=== PATIENT | male | born 1940 | race Caucasian/White ===

== ENCOUNTER 2022-05-12 08:52 | Outpatient (CLI) | payer MEDICARE, SELFPAY ==
[2022-05-12 10:03] VITALS: BMI 28.5
--- NOTE | 2022-05-12 10:06 | ECG_ITS ---
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 Interpretive Statements NAME OF STUDY: EXERCISE SESTAMIBI STRESS TEST INDICATION: [Shortness of Breath, ] EXERCISE DATA: The patient was exercised by Tye protocol. Baseline heart rate was 62 beats per minute. Baseline blood pressure was 143/95 millimeters of mercury. Target heart rate was 118 beats per minute. Maximum heart rate achieved was 136, which was 115% of the target heart rate. Maximum blood pressure was 220/104 millimeters of mercury. Total exercise time was 6 minutes 37 seconds. Maximum METs achieved was 10.2. The reason for ending the test was completion of the protocol. The patient complained of shortness of breath during the stress test, which then resolved at the end of the test. ELECTROCARDIOGRAM: BASELINE: Showed sinus rhythm, right bundle branch block, no significant ST-T changes at the baseline noted. [] EXERCISE: At the peak exercise level, [] No significant ST-T changes suggestive of ischemia noted. [] RECOVERY: During the recovery period, heart rate dropped appropriately. No significant ST-T changes in the recovery suggestive of ischemia noted. [] CONCLUSION: 1. Exercise capacity good. 2. Heart rate response was appropriate. 3. Blood pressure response was hypertensive 4. Symptoms not suggestive of ischemia. 5. Electrocardiogram portion of the stress test was not suggestive of ischemia. 6. Nuclear scan will be documented separately. Electronically Signed On 05-30-2022 21:33:46 CDT by Amilcar Ring M.D. [id number]
--- NOTE | 2022-05-12 10:06 | NMCV_ITS ---
NM raudel perf SPECT r/s* [id number] Ashish Armijo Age: 81 Gender: M : 1940 Exam Date: 05/12/2022 10:06 Ordering Phys: Angelika Johnson Technologist: JOEY Sr Exam Location: [facility] Indications: SOB STRESS TEST Please see separate stress test report in Ephiphany for full findings IMAGE PROTOCOL Rest/Stress 1 Exercise Day Radiopharmaceutical Dose (mCi) Administration Site Administered by Rest: Tc-99m 10.8 IV JOEY Sr Sestamibi Stress:Tc-99m 32.9 IV JOEY Sr Sestamibi Rest: 12-May-2022 60 Discovery 630 Stress: 12-May-2022 15 Discovery 630 Radiopharmaceutical was injected at 87 % maximum heart rate. Images obtained in supine and prone position. SPECT RESULTS Technical Quality: Good Raw Data Analysis: Normal Image Corrections: No attenuation or motion correction applied Summed Stress Score: 2 Summed Rest Score: 6 Summed Difference Score: 1 PERFUSION FINDINGS There is small in size, mostly fixed perfusion defect in inferior wall. 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 FUNCTIONAL RESULTS (calculated via Gated SPECT) Stress Image LV EF (%): 41 Stress EDV (mL):134 TID: 1.03 Stress ESV (mL):79 FUNCTIONAL FINDINGS: LV systolic is mildly reduced with EF of 41%. Mild global hypokinesis is seen. IMPRESSIONS 1. Abnormal myocardial perfusion imaging with small sized prior infarct seen in the RCA territory with minimal bret-infarct ischemia. 2. LV systolic function is mildly reduced with EF of 41%. Amilcar Ring MD (Electronically Signed) Final Date: 12 May 2022 22:10 S
[2022-05-12 12:15] VITALS: BP 148/103; PULSE 85
== END 2022-05-12 08:53 | disposition home or self-care (01) ==
PROVIDERS: PCP Physician Assistant; Visit Provider Physician Assistant
DX: R06.02 Shortness of breath (principal)
CPT/HCPCS: 78452; 93017; A9500

== ENCOUNTER → 2022-07-13 12:00 | Outpatient (BNVA) | payer MEDICARE, SELFPAY | PROVIDERS: PCP Physician Assistant; Visit Provider Internal Medicine Cardiovascular Disease | DX: I25.10 Atherosclerotic heart disease of native coronary artery without angina pectoris (principal); I25.2 Old myocardial infarction; Z95.820 Peripheral vascular angioplasty status with implants and grafts; E78.5 Hyperlipidemia, unspecified; J44.9 Chronic obstructive pulmonary disease, unspecified; I10 Essential (primary) hypertension; R07.9 Chest pain, unspecified; Z87.891 Personal history of nicotine dependence | CPT/HCPCS: 99213; 99214 ==

== ENCOUNTER 2022-07-26 07:24 | Outpatient (CLI) | payer MEDICARE, SELFPAY ==
[2022-07-26] VITALS (107 sets, daily range): BP systolic 121–186; BP diastolic 63–101; PULSE 50–89; RESP 8–28; TEMP 36.6–37.1; O2SAT 88–98; BMI 30.1
--- NOTE | 2022-07-26 07:30 | XACV_ITS ---
Exam Room: [facility] Ht: 183 cm Wt: 101 kg BSA: 2.29 m2 Gender: Male : 1940 Any Known Allergies: Penicillins Exam Priority: Routine Procedure(s): Procedure Description: Diagnostic procedure Procedure Description: Left Heart Catheterization Procedure Description: Left ventriculography Procedure Description: Miscellaneous Procedure Description: ACT Procedure Description: Coronary Angiography Diagnostic Cath Status: Elective Diagnostic Findings * Left circumflex artery has mild to moderate diffuse disease.. * Right Coronary Artery has patent prior mid vessel stent. No severe stenosis. RPL has distal significant 60 to 70% disease.. * Mid Left Anterior Descending: Proximal to mid vessel has a long stent. In the mid LAD there is critical 99% in-stent restenosis., STEVEN: 1 flow. Mid to distal vessel has moderate 50 to 60% stenosis.. * Left Main has no disease. * Coronary angiography shows right dominance. PCI Status: Elective PCI Indication: Other Interventional Findings * Procedure detail:. Left main artery with XB 3.5 guide catheter. 0.014 run-through guidewire was used to cross the mid LAD in-stent restenosis. IV heparin was administered to maintain ACT above 250 s. We dilated the stent with a 3.5 x 12 mm noncompliant balloon. At this time final angiogram showed excellent stent expansion, minimal residual stenosis and STEVEN-3 flow. Guidewire and guide catheter were removed. Patient left the Painter Decorator in stable condition.. * Mid Left Anterior Descendin% stenosis treated with a MDT CECY EUPHORA RX [id number] BALLOON. 0% residual stenosis, STEVEN: 3 flow. Conclusions 1. Critical 99% in-stent restenosis of mid LAD stent status post successful revascularization with balloon angioplasty.. 2. Mild left ventricular systolic dysfunction. Ejection fraction of 45%. 3. Mid Left Anterior Descending was treated with a Balloon. Recommendations * Aspirin Plavix for at least 1 year. * High intensity statin therapy. * Outpatient cardiology follow-up in 4. Interventional RX Recommendation: PCI w/o planned CABG Diagnostic RX Recommendation: PCI w/o planned CABG Anticoagulation: Heparin Ventriculography Ejection Fraction: 45.0 % Pressures Phase:Rest AO : 106 / 73 ( 89 ) @ 9:14:00 AM 90 / 60 ( 73 ) @ 9:31:00 AM 144 / 92 ( 113 ) @ 9:40:00 AM 132 / 82 ( 104 ) @ 9:40:00 AM LV : 136 / 21 / 31 @ 9:38:00 AM 131 / 8 / 22 @ 9:39:00 AM 152 / 29 / 41 @ 9:40:00 AM 120 / -3 / 13 @ 9:40:00 AM Valves Phase:DefaultPhase AV : 0.0 @ 8:28:22 AM Clinical Evaluation EBL: 5mL-10mL Procedural Details Procedure Consent Obtained. Admit Source: Out Patient. Pre-Procedure Time Out. Identified patient by full name and date of as verbalized by the patient/guarantor. Does the consent match the physician's order: Yes. Accurate & Complete Informed Consent: Yes. Inpatient/Outpatient History & Physical on Chart: Yes. If H&P is completed, is and addenduem needed: No; If yes, is the addendum complete: N/A. Visualize and Verify Site with Patient/Guarantor: N/A. Relevant Radiology Images available: N/A. The risks, benefits, and alternatives of sedation and/or procedure were discussed by physician. The patient agrees to continue. Procedure started. [facility] Clinical Fraility Score: 3: Managing Well. Painter Decorator Indications: Suspected CAD. Chest Pain Symptom Assessment: Typical Angina Symptoms. Cardiovascular Instability: No,. Correct patient, site and procedure confirmed by cath team. Current diagnosis: positive stress test. PERRLA. 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 Lungs clear x 5 lobes. IV Site on Arrival: 20 gauge in the right anticubital. IV Fluids: 0.9% NaCl at KVO. 0 mL infused prior to cath lab technologist. Pre Procedural Pulses: bilateral dorsalis pedis was 3+. Pre Procedural Pulses: bilateral posterior tibial was 3+. Pre Procedural Pulses: bilateral radial was 3+. Oxygen started at 2liters/min via nasal canula. right groin was prepped with chloroprep then draped in the usual sterile fashion. right radial was prepped with chloroprep then draped in the usual sterile fashion. Physician notified. Baseline sample Acquired. HR: 67 BPM. Physician arrived. Physician scrubbed in. Immediate Pre-Procedure Time Out. Correct Patient: Yes; Correct Procedure: Yes; Correct Site: Yes; Correct Patient Position: Yes; Correct Supplies: Yes; Dried Flammable Prep: Yes; Blood Products Available: N/A;. Lidocaine 1% infiltrated to the right radial. A 5 yi TIG catheter in over wire. Multiple views taken of left coronary artery. Catheter redirected to the RCA. Multiple views taken of right coronary artery. Catheter out. 6 yi XB 3.5 guide catheter was inserted over the wire. Runthrough guidewire was advanced through the guide catheter to lesion in the mid LAD. Inflation number : 1 A MDT NC EUPHORA RX [id number] BALLOON was prepped and advanced across the Mid LAD , then inflated to 12 GARY for 0:20 seconds. Inflation number: 2 The MDT NC EUPHORA RX 3.87M69YR BALLOON was reinflated across the Mid LAD, to 12 GARY for 0:11 seconds. Inflation number: 3 The MDT NC EUPHORA RX [id number] BALLOON was reinflated across the Mid LAD, to 16 GARY for 0:27 seconds. ACT drawn. Results 354 seconds. Therapeutic limits - pre-heparin administration 90-150 seconds and monitoring heparin during a vascular procedure >250 seconds. Balloon out. Results checked. interventional Wire out. Results checked. Guide catheter out. A 5 yi Angled Pig catheter in over wire. EDP Sample taken: LV 136/21,31; HR: 69 BPM; SpO2: 89%. EDP Sample taken: LV 131/8,22; HR: 67 BPM; SpO2: 90%. LV gram performed in BERNARD @ 10 mL/second for a total of 30 mL. EDP Sample taken: LV 152/29,41; HR: 70 BPM; SpO2: 90%. Pullback taken: LV 120/-3,13; AO 144/92(113); Mean: , Peak to Peak: 0mmHg, SEP: ; HR: 68 BPM; SpO2: 89%. catheter and wire out. ACT drawn. Results 211 seconds. Therapeutic limits - pre-heparin administration 90-150 seconds and monitoring heparin during a vascular procedure >250 seconds. TR band placed. Hemostasis obtained. Post Procedure: Pulses reassessed and unchanged. PERRLA. 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 No VTE prophylaxis required. A TR Band was successful obtaining hemostatsis at the Right Radial artery insertion site. Medication's Wasted: Heparin = 4000 units. Medication's Wasted: Nitro = 49.8 mg. Total IV fluids: 100 mL. Post-op diagnosis: critical 99% occlusion of Mid LAD, instant opening with baloon. Complications: none. Estimated blood loss: 5mL-10mL. Responsiveness - Normal response to verbal stimuli; alert and oriented, PERRLA. Airway - Unaffected, no intervention required; spontaneous ventilation. Circulation: W/N/L, pulses unchanged. Nausea/Vomiting: No. Procedure completed. Patient transferred by bed to CPRU. Vital chart was stopped. Access Site Site: Right Radial artery Sheath Size: 6 Fr Hemostasis Method: TR Band Hemostasis Success: Successful Procedure Medications Start: 9:10 AM Stop: 9:10 AM Medication: Versed Amount: 1 mg Route: I.V. Start: 9:11 AM Stop: 9:11 AM Medication: Fentanyl Amount: 50 mcg Route: I.V. Start: 9:12 AM Stop: 9:12 AM Medication: Nitrogylcerin Amount: 200 mcg Route: I.A. Start: 9:13 AM Stop: 9:13 AM Medication: Heparin Amount: 5000 units Route: I.V. Start: 9:21 AM Stop: 9:21 AM Medication: Heparin Amount: 5000 units Route: I.V. Start: 9:29 AM Stop: 9:29 AM Medication: Nitrogylcerin Amount: 200 mcg Route: I.C. Start: 9:31 AM Stop: 9:31 AM Medication: Heparin Amount: 2000 units Route: I.V. Start: 9:31 AM Stop: 9:31 AM Medication: Versed Amount: 1 mg Route: I.V. Start: 9:31 AM Stop: 9:31 AM Medication: Fentanyl Amount: 50 mcg Route: I.V. Start: 9:32 AM Stop: 9:32 AM Medication: Aspirin Amount: 325 mg Route: P.O. Start: 9:32 AM Stop: 9:32 AM Medication: Plavix Amount: 600 mg Route: P.O. I, the attending physician, have reviewed and verified all procedure medications. Yes, all medications given per verbal order History/Risk Factors Hypertension: Yes Dyslipidemia: Yes Peripheral Arterial Disease (PAD): No Myocardial Infarction (MS): Yes Obesity: No Prior Interventions PCI: Yes CABG: No Valve Surgery: No Date of PCI: 01/17/2012 Report Signatures Finalized by Amilcar Ring MD on 08/09/2022 04:58 PM
[2022-07-26] MEDS: diphenhydrAMINE 50 mg Capsule PO (07:51)
[2022-07-26 08:23] LABS: Basophils # 0.1 10^3/uL (0.0-0.1); Basophils % 0.8 %; Eosinophils # 0.2 10^3/uL (0.0-0.8); Eosinophils % 3.1 %; Hematocrit 49.3 % (42.0-52.0); Hemoglobin 16.5 g/dL (11.7-16.6); Lymphocytes # 2.5 10^3/uL (0.8-4.8); Lymphocytes % 41.2 %; Mean Corpuscular HGB Conc 33.5 g/dL (30.0-36.0); Mean Corpuscular Hemoglobin 28.7 pg (28.0-34.0); Mean Corpuscular Volume 85.9 fl (80-94); Mean Platelet Volume 9.1 fL (7.4-10.4); Monocytes # 0.6 10^3/uL (0.2-0.9); Monocytes % 9.6 %; Neutrophils # 2.72 10^3/uL (1.8-7.7); Neutrophils % 44.8 %; Nucleated Red Blood Cells % 0 %; Platelet Count 255 10^3/cmm (130-400); Red Blood Count 5.74 10^6/uL (4.1-5.3); Red Cell Distribution Width 12.9 % (12.1-15.1); White Blood Count 6.1 10^3/uL (4.0-10.0)
[2022-07-26 08:41] LABS: Anion Gap 14.4 (5-19); Blood Urea Nitrogen 16 mg/dL (8-23); Calcium 9.6 mg/dL (8.5-10.5); Carbon Dioxide 27 mmol/L (22-29); Chloride 103 mmol/L (98-107); Glucose 97 mg/dL (65-115); Osmolality Calculated 291 mOsm/kg (285-295); Potassium 4.4 mmol/L (3.5-5.1); Sodium 140 mmol/L (136-145)
--- NOTE | 2022-07-26 09:07 | W.PM.OPSUD ---
Surgery/Procedure H&P Update DATE OF PROCEDURE: July 26, 2022 DATE H&P PERFORMED: 07/13/22 H&P UPDATE INFORMATION: I have reviewed H&P completed within last 30 days, I have examined patient prior to procedure and No changes to prior documentation PREOP DIAGNOSIS: Worsening angina PRIMARY INDICATION FOR PROCEDURE: Worsening angina PLANNED PROCEDURE: Operation Date: 07/26/22 08:30 Proposed Procedures p [facility] w/w/o 07256 I21.9,Z95.820,I10(Left) - Amilcar Ring M.D Possible percutaneous coronary intervention PATIENT REASSESSED PRIOR TO SEDATION, WITH NO CHANGE NOTED: Yes PHYSICAL EXAM: alert, oriented x 3, clear to auscultation bilaterally and regular rate & rhythm AIRWAY EVAL/ANESTHESIA PLAN: ASA III, Local Anesthesia, Risks, benefits & alternatives of sedation and/or procedure discussed and Patient agrees to continue as planned ADDITIONAL INFORMATION: Moderate sedation
--- NOTE | 2022-07-26 10:14 | SUR.PHASEI ---
Received the patient back from the dental laboratory technician apprentice via wheelchair S/P POBA of the Prox LAD at 0950. Patient ambulated to the bed. Alert and oriented x 3. potline monitor placed and vital signs obtained. TR band to the right wrist intact with no bleeding or hematoma noted. Palpable radial pulse. No other assessment changes noted from pre cath assessment. Spouse and son at bedside. No concerns voiced at this time.
--- NOTE | 2022-07-26 10:36 | SUR.PHASEI ---
patient taken to 111-1 via WC.
--- NOTE | 2022-07-26 14:07 | PC.NURSE ---
TR band removed at 1406. No hematoma noted. Patient's vitals are stable. No complaints at this time. No bleeding noted.
[2022-07-27] VITALS (100 sets, daily range): BP systolic 139–143; BP diastolic 82–88; PULSE 47–93; RESP 8–27; TEMP 36.6–37.1; O2SAT 82–97
[2022-07-27 04:36] LABS: Basophils # 0.1 10^3/uL (0.0-0.1); Basophils % 0.8 %; Eosinophils # 0.2 10^3/uL (0.0-0.8); Hematocrit 49.4 % (42.0-52.0); Hemoglobin 16.4 g/dL (11.7-16.6); Lymphocytes # 1.9 10^3/uL (0.8-4.8); Lymphocytes % 32.2 %; Mean Corpuscular HGB Conc 33.2 g/dL (30.0-36.0); Mean Corpuscular Hemoglobin 28.8 pg (28.0-34.0); Mean Corpuscular Volume 86.8 fl (80-94); Mean Platelet Volume 8.8 fL (7.4-10.4); Monocytes # 0.7 10^3/uL (0.2-0.9); Monocytes % 11.1 %; Neutrophils % 52.4 %; Nucleated Red Blood Cells % 0 %; Platelet Count 207 10^3/cmm (130-400); Red Blood Count 5.69 10^6/uL (4.1-5.3); Red Cell Distribution Width 12.9 % (12.1-15.1); White Blood Count 5.9 10^3/uL (4.0-10.0)
[2022-07-27 05:11] LABS: Anion Gap 11.7 (5-19); Blood Urea Nitrogen 18 mg/dL (8-23); Calcium 9.5 mg/dL (8.5-10.5); Carbon Dioxide 30 mmol/L (22-29); Chloride 101 mmol/L (98-107); Glucose 94 mg/dL (65-115); Osmolality Calculated 288 mOsm/kg (285-295); Potassium 4.7 mmol/L (3.5-5.1); Sodium 138 mmol/L (136-145)
[2022-07-27] MEDS: aspirin 81 mg EC Tablet PO (08:20)
[2022-07-27] MEDS: clopidogrel 75 mg Tablet PO (08:21)
--- NOTE | 2022-07-27 09:25 | PM.DCS ---
Discharge Providers Date of Admission: 07/26/2022 Date of Discharge: July 27, 2022 Attending Provider at Discharge: Amilcar Ring M.D Primary Care Provider: Angelika Johnson Reason for Visit Reason for Visit: Worsening angina Brief History: 81-year-old man with past medical history of CAD who was recently seen in the office by Dr. Keen for worsening chest pain symptoms. Patient had recent stress test did not show significant area of ischemia however had been having worsening chest pain symptoms for which coronary angiogram was arranged. Hospital Course Hospital Course Coronary angiogram demonstrated severe in-stent restenosis of proximal to mid LAD stent. He underwent successful revascularization with balloon angioplasty. Patient was observed overnight and went home in a stable condition. Physical Exam Narrative: GENERAL: Patient is alert, awake and oriented x3. [] NECK: No jugular vein distension. [] HEENT: No cyanosis. No icterus. No pallor. [] HEART: Regular S1 and S2. No murmur, rub or gallop. [] LUNGS: Clear to auscultate bilaterally. [] ABDOMEN: Soft, nontender and nondistended. Positive bowel sounds. No guarding, rebound or tenderness. [] CENTRAL NERVOUS SYSTEM: Grossly nonfocal. [] EXTREMITIES: Lower extremities with no edema bilaterally. Pulses palpable in the lower extremities, both dorsalis pedis and posterior tibial. 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 Routine Exams 07/26/22 07:30 Ordered Laboratory Results WBC 5.9 10^3/uL (4.0-10.0) 07/27/22 04:22 RBC 5.69 10^6/uL (4.1-5.3) H 07/27/22 04:22 Hgb 16.4 g/dL (11.7-16.6) 07/27/22 04:22 Hct 49.4 % (42.0-52.0) 07/27/22 04:22 MCV 86.8 fl (80-94) 07/27/22 04:22 MCH 28.8 pg (28.0-34.0) 07/27/22 04:22 MCHC 33.2 g/dL (30.0-36.0) 07/27/22 04:22 RDW 12.9 % (12.1-15.1) 07/27/22 04:22 Plt Count 207 10^3/cmm (130-400) 07/27/22 04:22 MPV 8.8 fL (7.4-10.4) 07/27/22 04: Neut % (Auto) 52.4 % 07/27/22 04:22 Lymph % (Auto) 32.2 % 07/27/22 04:22 Edmonson % (Auto) 11.1 % 07/27/22 04: Eos % (Auto) 3.0 % 07/27/22 04:22 Baso % (Auto) 0.8 % 07/27/22 04:22 Neut # (Auto) 3.10 10^3/uL (1.8-7.7) 07/27/22 04: Lymph # (Auto) 1.9 10^3/uL (0.8-4.8) 07/27/22 04:22 Edmonson # (Auto) 0.7 10^3/uL (0.2-0.9) 07/27/22 04:22 Eos # (Auto) 0.2 10^3/uL (0.0-0.8) 07/27/22 04:22 Baso # (Auto) 0.1 10^3/uL (0.0-0.1) 07/27/22 04:22 Nucleated RBC % (auto) 0 % 07/27/22 04:22 Nucleated RBCs # 0.0 /100WBC 07/27/22 04:22 Sodium 138 mmol/L (136-145) 07/27/22 04:22 Potassium 4.7 mmol/L (3.5-5.1) 07/27/22 04:22 Chloride 101 mmol/L (98-107) 07/27/22 04:22 Carbon Dioxide 30 mmol/L (22-29) H 07/27/22 04:22 Anion Gap 11.7 (5-19) 07/27/22 04:22 BUN 18 mg/dL (8-23) 07/27/22 04:22 Creatinine 1.0 mg/dL (0.7-1.2) 07/27/22 04:22 GFR Calculation Not Reportable 07/27/22 04:22 Glucose 94 mg/dL (65-115) 07/27/22 04:22 Calculated Osmolality 288 mOsm/kg (285-295) 07/27/22 04:22 Calcium 9.5 mg/dL (8.5-10.5) 07/27/22 04:22 Vitals Last Vital Signs Temp 97.8 F 07/27/22 08:00 Pulse 63 07/27/22 08:15 Resp 18 07/27/22 08:15 BP 140/84 07/27/22 08:15 Pulse Ox 91 07/27/22 07:50 O2 Del Method 07/26/22 21:08 Discharge Plan Discharge Patient Disposition: Home Prescriptions: New aspirin 81 mg tablet,chewable 81 mg PO DAILY Qty: 90 1RF clopidogrel 75 mg tablet 75 mg PO DAILY Qty: 90 1RF Continued pantoprazole 40 mg tablet,delayed release (DR/EC) 40 mg PO QDAY saw palmetto 450 mg capsule 450 mg PO DAILY enalapril maleate 10 mg tablet 10 mg PO DAILY glucosamine-chondroitin 900 mg tablet 900 mg PO DAILY sonovive 1 tab PO DAILY tamsulosin 0.4 mg capsule 0.4 mg PO DAILY PRN (Reason: Urinary Retention) cyanocobalamin (vitamin B-12) 5,000 mcg capsule 5,000 mcg PO DAILY cetirizine [Zyrtec] 10 mg tablet 10 mg PO DAILY PRN (Reason: Allergy Symptoms) nitroglycerin [Nitrostat] 0.4 mg tablet, sublingual 0.4 mg SUBLINGUAL Q5M PRN (Reason: chest pain) Qty: 25 6RF No Action pravastatin 80 mg tablet 80 mg PO BEDTIME Fish Oil 300-1,000 mg Capsule 1 cap PO DAILY Niacivamide 500 mg PO BID Discharge Orders: Discharge Order (Routine); Ordered 07/27/22 Ordered By: Amilcar Ring Referrals: Prerna Shoemaker FNP [Nurse Practitioner] - 08/04/22 1:30 pm (Please follow-up with Prerna Shoemaker on Tuesday, Aug 04 at 1:30P.M. If you have any questions or need reschedule. Please call ) Diet: Cardiac Activity: Increase activity as tolerated Patient Instructions: Aspirin (By mouth), Clopidogrel (By mouth) (Plavix), Coronary Angioplasty (DC), Chest Pain Stoplight, Post Angiogram Home Care Instructions Discharge Date/Time: 07/27/22 10:12 Discharge Attestations Time Spent in Discharge Care*: less than 30 min Quality Metrics Clinical Quality Measures [ No reported AMI, CVA or VTE this stay] Coding Level of Care Code Acute Chg FW DC note
--- NOTE | 2022-07-27 10:10 | PC.NURSE ---
Patient discharged at 1000 am with discharge instructions to not use right hand/wrist to push or pull anything over 5lb for the next 5 days. Education and follow up appointments given. Patient verbalized understanding. Ambulated with to main entrance.
== END 2022-07-27 10:12 | disposition home or self-care (01) ==
LOC: CCL 07:36 → CSU 09:47
PROVIDERS: PCP Physician Assistant; Visit Provider Internal Medicine
DX: I25.110 Atherosclerotic heart disease of native coronary artery with unstable angina pectoris (principal); I10 Essential (primary) hypertension; E78.5 Hyperlipidemia, unspecified; I25.2 Old myocardial infarction
CPT/HCPCS: 36415; 80048; 85025; 85347; 92920; 93458; 96360; 96365; 99152; 99153; C1725; C1769; C1887; C1894; J1644; J2250; J3010; J3490; J7030; Q0163; Q9967

== ENCOUNTER → 2022-08-04 13:19 | Outpatient (BNVA) | payer MEDICARE, SELFPAY | PROVIDERS: PCP Physician Assistant; Visit Provider Nurse Practitioner Family | DX: I25.10 Atherosclerotic heart disease of native coronary artery without angina pectoris (principal); I25.2 Old myocardial infarction; I10 Essential (primary) hypertension; Z95.5 Presence of coronary angioplasty implant and graft; Z87.891 Personal history of nicotine dependence | CPT/HCPCS: 36415; 80053; 85025; 99214 ==

== ENCOUNTER 2022-08-08 21:32 | Observation (INO) | payer OTHER, MEDICARE, SELFPAY ==
[2022-08-08 21:39] VITALS: BP 158/94; PULSE 68; RESP 19; TEMP 36.7; O2SAT 94; BMI 29.8
[2022-08-08 21:45] VITALS: RESP 16
--- NOTE | 2022-08-08 22:08 | XRR_ITS ---
PROCEDURE INFORMATION: Exam: XR Chest Exam date and time: 08/08/2022 10:46 PM Age: 81 years old Clinical indication: Dyspnea TECHNIQUE: Imaging protocol: Radiologic exam of the chest. Views: 1 view. COMPARISON: CR XR chest 2V* [id number] 04/05/2022 8:49 AM FINDINGS: Lungs: Calcified pulmonary nodule/nodules, consistent with prior granulomatous disease. Pleural spaces: Unremarkable. No pleural effusion. No pneumothorax. Heart/Mediastinum: There is mild cardiomegaly. Bones/joints: Unremarkable. XR/XR chest 1V portable [id number] IMPRESSION: Mild cardiomegaly.
--- NOTE | 2022-08-08 22:35 | CTR_ITS ---
PROCEDURE INFORMATION: Exam: CTA Chest With Contrast Exam date and time: 08/08/2022 10:51 PM Age: 81 years old Clinical indication: Abdominal pain; Chest pressure; Additional info: Right chest and flank pain, SOB TECHNIQUE: Imaging protocol: Computed tomographic angiography of the chest with contrast. 3D rendering (Not supervised by radiologist): MIP and/or 3D reconstructed images were created by the technologist. Radiation optimization: All CT scans at this facility use at least one of these dose optimization techniques: automated exposure control; mA and/or kV adjustment per patient size (includes targeted exams where dose is matched to clinical indication); or iterative reconstruction. Contrast material: OMNIPAQUE 350; Contrast volume: 80 ml; Contrast route: INTRAVENOUS (IV); COMPARISON: CR (CHEST, ) 08/08/2022 10:46 PM RADIATION DOSE METRICS: Total DLP (mGy-cm): 1339.43 FINDINGS: Pulmonary arteries: No pulmonary embolism. Aorta: Unremarkable. No aortic aneurysm. No aortic dissection. Other arteries: There is mild atherosclerotic disease. Lungs: Calcified pulmonary nodule/nodules, consistent with prior granulomatous disease. 7 mm left lower lobe perifissural nodule image 242. Pleural spaces: Unremarkable. No pneumothorax. No pleural effusion. Heart: Unremarkable. No cardiomegaly. No pericardial effusion. Lymph nodes: Calcified lymph nodes are present, secondary to prior granulomatous disease. Bones/joints: Unremarkable. No acute fracture. Soft tissues: Unremarkable. (Reference: Valdez) REFERENCES: Valdez Cali et al. Guidelines for Management of Incidental Pulmonary Nodules Detected on CT Images: From the Fleischner Society 2017. Radiology. 2017;284(1):228-243. PROCEDURE INFORMATION: Exam: CT Abdomen And Pelvis With Contrast Exam date and time: 08/08/2022 10:51 PM Age: 81 years old Clinical indication: Abdominal pain; Chest pressure; Additional info: Right chest and flank pain, SOB TECHNIQUE: Imaging protocol: Computed tomography of the abdomen and pelvis with contrast. Radiation optimization: All CT scans at this facility use at least one of these dose optimization techniques: automated exposure control; mA and/or kV adjustment per patient size (includes targeted exams where dose is matched to clinical indication); or iterative reconstruction. Contrast material: OMNIPAQUE 350; Contrast volume: 80 ml; Contrast route: INTRAVENOUS (IV); COMPARISON: CR (CHEST, ) 08/08/2022 10:46 PM RADIATION DOSE METRICS: Total DLP (mGy-cm): 1339.43 FINDINGS: Lungs: The lung bases are clear. No effusion Liver: There is fatty infiltration of the liver. Gallbladder and bile ducts: No wall thickening, pericholecystic fluid or stones. Pancreas: Normal. No ductal dilation. Spleen: Normal. No splenomegaly. Adrenal glands: Normal. No mass. Kidneys and ureters: 1.1 cm right renal cyst. Stomach and bowel: Unremarkable. No obstruction. No mucosal thickening. Appendix: No evidence of appendicitis. Intraperitoneal space: Unremarkable. No free air. No significant fluid collection. Vasculature: Unremarkable. No abdominal aortic aneurysm. Lymph nodes: Unremarkable. No enlarged lymph nodes. Urinary bladder: Unremarkable as visualized. Reproductive: Unremarkable as visualized. Bones/joints: Unremarkable. No acute fracture. Soft tissues: Prior left inguinal hernia repair. CT/CT angio chest w abd pel w con IMPRESSION: 1. No pulmonary embolism. 2. No cause for acute pain is identified. 3. 7 mm left lower lobe perifissural nodule image 242. For patients at low risk (minimal or absent history of smoking and of other known risk factors), recommend CT Chest at 6-12 months, then consider CT Chest at 18-24 months. For patients at high risk (history of smoking or of other known risk factors), recommend CT Chest at 6-12 months, then CT Chest at 18-24 months. IMPRESSION: 1. Fatty infiltration of the liver. 2. No cause for acute pain is identified. COMMENTS: Consistent with the [place] [employer]'s Incidental Findings Committee white paper (J Am Eric Radiol 2018): Any incidental renal lesion less than 1 cm or classified as too small to characterize, or any incidental cystic renal lesion characterized as simple-appearing, is likely benign. No follow-up imaging is recommended for these lesions per consensus recommendations based on imaging criteria.
[2022-08-08 22:38] LABS: Basophils # 0.1 10^3/uL (0.0-0.1); Basophils % 0.9 %; Eosinophils # 0.3 10^3/uL (0.0-0.8); Eosinophils % 3.5 %; Hematocrit 49.3 % (42.0-52.0); Hemoglobin 16.5 g/dL (11.7-16.6); Lymphocytes # 2.8 10^3/uL (0.8-4.8); Lymphocytes % 36.2 %; Mean Corpuscular HGB Conc 33.5 g/dL (30.0-36.0); Mean Corpuscular Hemoglobin 28.9 pg (28.0-34.0); Mean Corpuscular Volume 86.3 fl (80-94); Mean Platelet Volume 8.8 fL (7.4-10.4); Monocytes # 0.9 10^3/uL (0.2-0.9); Monocytes % 11.7 %; Neutrophils % 47.3 %; Nucleated Red Blood Cells % 0 %; Platelet Count 239 10^3/cmm (130-400); Red Blood Count 5.71 10^6/uL (4.1-5.3); Red Cell Distribution Width 12.7 % (12.1-15.1); White Blood Count 7.6 10^3/uL (4.0-10.0)
[2022-08-08] MEDS: iohexol 350 mg/mL 500 mL Btl (per mL) IV (22:54)
[2022-08-08 22:59] LABS: Troponin(5th) Baseline 6 ng/L (0-15)
[2022-08-08 23:09] LABS: Alanine Aminotransferase 25 U/L (0-41); Albumin Level 4.3 g/dL (3.5-5.2); Alkaline Phosphatase 72 U/L (40-130); Anion Gap 14.5 (5-19); Aspartate Amino Transferase 15 U/L (0-40); Blood Urea Nitrogen 14 mg/dL (8-23); Calcium 9.7 mg/dL (8.5-10.5); Carbon Dioxide 27 mmol/L (22-29); Chloride 100 mmol/L (98-107); Globulin 2.7 g/dL (1.3-4.6); Glucose 107 mg/dL (65-115); NT Pro B Type Natriuretic Pept 300 pg/mL (0-450); Osmolality Calculated 285 mOsm/kg (285-295); Potassium 4.5 mmol/L (3.5-5.1); Sodium 137 mmol/L (136-145); Total Bilirubin 0.5 mg/dL (0.15-1.2)
[2022-08-09] VITALS (11 sets, daily range): BP systolic 119–169; BP diastolic 67–88; PULSE 56–70; RESP 14–20; TEMP 36.4–36.7; O2SAT 92–97
--- NOTE | 2022-08-09 00:11 | ECG_ITS ---
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 Measurements Intervals [place] Rate: 53 P: 52 MT: 216 QRS: 79 QRSD: 178 T: 75 QT: 433 QTc: 408 Interpretive Statements SINUS BRADYCARDIA WITH FIRST DEGREE AV BLOCK POSSIBLE LEFT ATRIAL ENLARGEMENT [-0.1mV P-WAVE IN V1/V2] RIGHT BUNDLE BRANCH BLOCK [120+ ms QRS DURATION, UPRIGHT V1, 40+ ms S IN I/aVL/V4/V5/V6] No previous ECG available for comparison Electronically Signed On 08-09-2022 19:05:55 PLATING INSPECTOR by Amilcar Ring M.D. [email or web address] holmes countyIndium Software Inc.[facility].[employer]/store/OM/[id number]
[2022-08-09 01:02] LABS: Troponin 5 2HR 19.35 ng/L (0-15)
[2022-08-09 01:10] LABS: Troponin 5 2HR Delta 13.35 ABS# (0-10)
[2022-08-09] MEDS: morphine 4 mg/mL SDV 1 mL IVP (01:47)
[2022-08-09] MEDS: ondansetron 2 mg/ML SDV 2 mL 4 MG IVP (01:47)
--- NOTE | 2022-08-09 03:19 | P.HP_ITS ---
Providers/Chief Complaint Admitting Physician: Ace Han MD Primary Care Provider: Angelika Johnson Chief Complaint: sob, right shoulder pain, post heart surgery History of Present Illness Ashish Armijo is a 81 year old male who recently had balloon angioplasty of LAD presented today with chief complaint of right-sided chest discomfort. Patient is stated that roughly 2 weeks ago he was lifting stones when he started experiencing shortness of breath and chest pain angiogram revealed 99% stenosis of LAD he has been compliant with his medications, he does not smoke or drink alcohol, since Tuesday he has been experiencing shortness of breath and right- sided chest discomfort which he is describing as sharp stabbing pain lower part of his chest which is radiating towards his right shoulder. He has not noticed any left-sided pain, orthopnea, PND, nausea or vomiting. He does get short of breath with his symptoms. That prompted his visit to the ER. In the ER he was about to be discharged however because of delta troponin decision was made to observe him overnight because of recent balloon angioplasty of LAD. Heart rate is in bradycardic range patient is hemodynamically stable, chest pain improved with use of morphine I also given 1 dose of ketorolac. Review of Systems Const: Denies: fever(s) Eyes: Denies: change in vision ENMT: Denies: throat pain Card: Reports: chest pain Resp: Reports: dyspnea GI: Denies: abdominal pain : Denies: urinary frequency Musc: Denies: neck pain Skin/Breast: Denies: rash Neuro: Denies: headache(s) Psych: Denies: anxiety Endo: Denies: polyuria Cheo/Lymph: Denies: easy bruising All/Imm: Denies: urticaria Medications/Allergies Home Medications Medication Instructions Recorded Confirmed Last Taken Type allopurinol 300 mg tablet 300 mg PO QDAY 10/01/19 08/04/22 07/25/22 10:00 His tory pantoprazole 40 mg tablet,delayed 40 mg PO QDAY 10/01/19 08/04/22 07/25/22 10:00 History release antiarthritic combination no.2 900 mg PO 03/30/21 08/04/22 07/25/22 10:00 History mg tablet (glucosamine-chondroitin) enalapril maleate 10 mg tablet 10 mg PO DAILY 03/30/21 08/04/2207/25/22 10:00 History cetirizine 10 mg tablet (Zyrtec) 10 mg PO DAILY PRN Allergy Symptoms 07/13/22 08/04/22 07/25/22 10:00 History cyanocobalamin (vitamin B-12) 5,000 mcg PO DAILY 07/13/22 08/04/22 07/25/22 10:00 History 5,000 mcg capsule nitroglycerin 0.4 mg sublingual 0.4 mg sublingual Q5M PRN chest 07/13/22 08/04/22 Unknown Rx tablet (Nitrostat) pain #25 tabs saw palmetto 450 mg capsule 450 mg PO DAILY 07/13/22 08/04/22 07/25/22 10:00 History sonovive PO DAILY 07/13/22 08/04/22 07/25/22 10:00 History tamsulosin 0.4 mg capsule 0.4 mg PO DAILY PRN Urinary 07/13/22 08/04/22 07/25/22 10:00 History Retention aspirin 81 mg chewable tablet 81 mg PO DAILY #90 tabs 07/27/22 08/04/22 Unknown Rx clopidogrel 75 mg tablet 75 mg PO DAILY #90 tabs 07/27/22 08/04/22 Unknown Rx pravastatin 80 mg tablet 80 mg PO BEDTIME 08/09/22 08/09/22 08/08/22 History Allergies Allergy/AdvReac Type Severity Reaction Status Date / Time Penicillins Allergy Unknown Unknown Verified 08/04/22 09:40 PFSH Acute PFSH: Medical History ASHD (arteriosclerotic heart disease) Chest pain COPD (chronic obstructive pulmonary disease) Dyslipidemia HTN (hypertension) Myocardial infarction Tobacco abuse, in remission Surgical History S/P angioplasty with stent Family History Father , AGE 90 CAD (coronary artery disease) Cancer COLON Mother Stroke Social History Smoking and tobacco status: former smoker Quit status (tobacco): has quit using tobacco Alcohol intake: former Household members: spouse Marital status: service: Yes Current occupational status: retired Current gender identity: Male Betsey/Alevism: Muslim Vitals/I&O/Wt Last Vital Signs Temp 98.1 F 08/09/22 02:55 Pulse 63 08/09/22 02:55 Resp 16 08/09/22 02:55 BP 148/80 08/09/22 02:55 Pulse Ox 97 08/09/22 02:55 O2 Del Method 08/09/22 01:46 O2 Flow Rate 4 08/09/22 01:46 Weight last 48 hrs Weight 99.79 kg Physical Exam Narrative: elderly male Laying flat No active chest pain Hemodynamically stable heart rate in 60s Bilateral breath sound no augmentation rhonchi or crackles S1, S2 Abdomen soft Patient skin is dry Pleasant and cooperative Nonfocal neuro exam Currently doing well on room air Data 08/08/22 22:29 08/08/22 22:29 A&P Assessment and plan (1) Chest pain: Plan Right-sided pleuritic chest pain Reece sign negative Chest pain improved with morphine Hemodynamically stable Delta troponin noted Observation overnight No active chest pain Doing well on room air Continue dual antiplatelet therapy Full code Cardiac diet DVT prophylaxis on board Depending on 6-hour troponin further decision will be made whether we need to call cardiology for further evaluation however he is pain is pleuritic in nature, CT scan did not show any acute pathological findings Attestations Medical Necessity Statement*: Anticipating discharge within 48 hours Time Spent in Patient Care: 40 Coding Level of Care Code Acute Mysql Database Administrator for Beti España Diagnoses Chest pain R07.9
--- NOTE | 2022-08-09 03:42 | ED_ITS ---
HPI - SOB/Dyspnea General: Chief Complaint: Shortness of Breath/Dyspnea Stated Complaint: sob, right shoulder pain, post heart surgery Time Seen by Provider: 08/08/22 22:26 Source: patient and family History of Present Illness: HPI Narrative: 81-year-old gentleman who had a cardiac catheterization 2 weeks ago. Since that time, he has had some shortness of breath, on and off, but has been worse the past couple of days. He also complains of right-sided shoulder, chest, and right upper quadrant pain intermittently. Pain to the right chest is sharp and somewhat pleuritic and that it worsens with cough, laughter, and inspiration. He has been nauseated at times with the pain. Patient received a balloon angioplasty to an in-stent stenosis of his proximal LAD 2 weeks ago. MD elicited complaint: shortness of breath and chest pain Pertinent past history: other Onset (ago): day(s) Context: recent illness Timing: constant Severity: moderate Exacerbating factors: lying flat and movement Relieving factors: nothing Associated symptoms: Reports chest pain and nausea; Deny cough, diaphoresis, dizziness, extremity pain, fever(s), syncope or vomiting Treatment prior to arrival: none Related Data: Home oxygen amount: none Review of Systems Const: Denies: fever(s) or diaphoresis Eyes: Denies: change in vision ENMT: Denies: throat pain Card: Reports: chest pain; Denies: syncope Resp: Reports: dyspnea GI: Reports: nausea; Denies: vomiting Musc: Denies: extremity pain Neuro: Denies: headache(s) or dizziness [facility] PFSH: Medical History ASHD (arteriosclerotic heart disease) Chest pain COPD (chronic obstructive pulmonary disease) Dyslipidemia HTN (hypertension) Myocardial infarction Tobacco abuse, in remission Surgical History S/P angioplasty with stent Family History Father , AGE 90 CAD (coronary artery disease) Cancer COLON Mother Stroke Social History Smoking and tobacco status: former smoker Quit status (tobacco): has quit using tobacco Alcohol intake: former Household members: spouse Marital status: service: Yes Current occupational status: retired Current gender identity: Male Betsey/Baptist: Buddhist Physical Exam Const: COMMON NORMALS: no acute distress GENERAL APPEARANCE: cooperative; not ill appearing and not frail appearing HENMT: COMMON NORMALS: normocephalic, atraumatic and Normal external nose present HEAD & SCALP: normocephalic and atraumatic FACE & SINUS: normal facial exam and face symmetric NOSE: Normal external nose present Eye: COMMON NORMALS: Equal, round and reactive pupils present and EOMs intact bilaterally PUPIL: Yes Equal, round and reactive pupils present Neck/C-Spine: GENERAL: Yes trachea midline Chest: CHEST: Yes Symmetrical chest wall rise Resp: COMMON NORMALS: normal respiratory effort, No retractions, No use of accessory muscles and clear to auscultation bilaterally AUSCULTATION: clear to auscultation bilaterally Cardio: COMMON NORMALS: regular rate and regular rhythm RATE: regular rate RHYTHM: regular rhythm GI: COMMON NORMALS: Normal to inspection, nondistended, normoactive bowel sounds present Extremity: COMMON NORMALS: no pedal edema Neuro: JAYSON COMA SCALE: document GCS findings Jayson coma scale eye opening: Spontaneous Jayson coma scale verbal response: Orientated Jayson coma scale motor response: Obey commands Jayson coma scale total score: 15 SENSORY EXAM: Yes extremities (intact) Psych: COMMON NORMALS: speech normal SPEECH: Yes normal speech Skin: COMMON NORMALS: no rashes or lesions noted GENERAL SKIN EXAM: no rashes or lesions noted Course 2 Vital Signs: Vital signs: Vital Signs Temperature 98.1 F 08/09/22 02:55 Pulse Rate 63 08/09/22 02:55 Respiratory Rate 16 08/09/22 02:55 Blood Pressure 148/80 08/09/22 02:55 Pulse Oximetry 97 08/09/22 02:55 Oxygen Delivery Me thod 08/09/22 01:46 Oxygen Flow Rate 4 08/09/22 01:46 MDM - SOB/Dyspnea Medical Decision Making Pain is somewhat pleuritic. Pain to the right upper quadrant is somewhat reproducible. Pain of the chest is not reproducible with palpation. His EKG shows a sinus rhythm with a right bundle branch block and some mild ST depression inferiorly. Chest x-ray shows mild cardiomegaly. Because of the nature of the pain, CTA of the chest was performed with abdomen pelvis follow- through. It shows no pulmonary embolus or infiltrate there is some fatty infiltration of the liver. The gallbladder and ducts are normal. CBC is not remarkable. BMP is not remarkable. Bilirubin is 0.5. His first troponin was 6, but 2-hour troponin is 19 for a delta of 13. This is strange given his more pleuritic pain to the right chest which is atypical. Because of a rise in troponin with recent heart catheterization, the patient will be observed. He is given morphine and Zofran with some relief of his discomfort. Lab Data 08/08/22 22:29 08/08/22 22: Labs/Radiology: Radiology Impressions Chest X-Ray 08/08/22 22:08 IMPRESSION: Mild cardiomegaly. Chest/Abdomen/Pelvis CT 08/08/22 22:35 IMPRESSION: 1. No pulmonary embolism. 2. No cause for acute pain is identified. 3. 7 mm left lower lobe perifissural nodule image 242. For patients at low risk (minimal or absent history of smoking and of other known risk factors), recommend CT Chest at 6-12 months, then consider CT Chest at 18-24 months. For patients at high risk (history of smoking or of other known risk factors), recommend CT Chest at 6-12 months, then CT Chest at 18-24 months. IMPRESSION: 1. Fatty infiltration of the liver. 2. No cause for acute pain is identified. COMMENTS: Consistent with the [place] [employer]'s Incidental Findings Committee white paper (J Am Eric Radiol 2018): Any incidental renal lesion less than 1 cm or classified as too small to characterize, or any incidental cystic renal lesion characterized as simple-appearing, is likely benign. No follow-up imaging is recommended for these lesions per consensus recommendations based on imaging criteria. Laboratory Results WBC 7.6 10^3/uL (4.0-10.0) 08/08/22 22: RBC 5.71 10^6/uL (4.1-5.3) H 08/08/22: Hgb 16.5 g/dL (11.7-16.6) 08/08/22 22: Hct 49.3 % (42.0-52.0) 08/08/22: MCV 86.3 fl (80-94) 08/08/22 22: MCH 28.9 pg (28.0-34.0) 08/08/22: MCHC 33.5 g/dL (30.0-36.0) 08/08/22: RDW 12.7 % (12.1-15.1) 08/08/22: Plt Count 239 10^3/cmm (130-400) 08/08/22: MPV 8.8 fL (7.4-10.4) 08/08/22: Neut % (Auto) 47.3 % 08/08/22: Lymph % (Auto) 36.2 % 08/08/22: [place] % (Auto) 11.7 % 08/08/22: Eos % (Auto) 3.5 % 08/08/22: Baso % (Auto) 0.9 % 08/08/22 Neut # (Auto) 3.60 10^3/uL (1.8-7.7) 08/08/22: Lymph # (Auto) 2.8 10^3/uL (0.8-4.8) 08/08/22: [place] # (Auto) 0.9 10^3/uL (0.2-0.9) 08/08/22: Eos # (Auto) 0.3 10^3/uL (0.0-0.8) 08/08/22: Baso # (Auto) 0.1 10^3/uL (0.0-0.1) 08/08/22: Nucleated RBC % (auto) 0 % 08/08/22: Nucleated RBCs # 0.0 /100WBC 08/08/22 22: Sodium 137 mmol/L (136-145) 08/08/22 22: Potassium 4.5 mmol/L (3.5-5.1) 08/08/22: Chloride 100 mmol/L (98-107) 08/08/22: Carbon Dioxide 27 mmol/L (22-29) 08/08/22: Anion Gap 14.5 (5-19) 08/08/22: BUN 14 mg/dL (8-23) 08/08/22:29 Creatinine 1.0 mg/dL (0.7-1.2) 08/08/22 22: GFR Calculation Not Reportable 08/08/22 22: Glucose 107 mg/dL (65-115) 08/08/22 22: Calculated Osmolality 285 mOsm/kg (285-295) 08/08/22 22: Calcium 9.7 mg/dL (8.5-10.5) 08/08/22 22: Total Bilirubin 0.5 mg/dL (0.15-1.2) 08/08/22 22:29 AST 15 U/L (0-40) 08/08/22 22: ALT 25 U/L (0-41) 08/08/22 22: Alkaline Phosphatase 72 U/L (40-130) 08/08/22: Troponin T Baseline 6 ng/L (0-15) 08/08/22 22: Troponin T 120 Minute 19.35 ng/L (0-15) H 08/09/22 00:09 Delta Troponin T 13.35 ABS# (0-10) H* 08/09/22 00:09 NT-Pro-B Natriuret Pep 300 pg/mL (0-450) 08/08/22 22: Total Protein 7.0 g/dL (6.6-8.7) 08/08/22 22: Albumin 4.3 g/dL (3.5-5.2) 08/08/22 22: Globulin 2.7 g/dL (1.3-4.6) 08/08/22 22:29 Discharge Plan Discharge Patient Disposition: Placed in Observation Admit Provider: Ace Han Clinical Impression: Chest pain Coding Level of Care Code ED Ship'S Master for Beti España
[2022-08-09] MEDS: ketorolac 30 mg/mL INJ 15 MG IVP (03:57)
--- NOTE | 2022-08-09 04:09 | ECG_ITS ---
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 Measurements Intervals [place] Rate: 60 P: 33 WI: 216 QRS: 53 QRSD: 162 T: 31 QT: 424 QTc: 424 Interpretive Statements SINUS RHYTHM WITH SINUS ARRHYTHMIA WITH FIRST DEGREE AV BLOCK RIGHT BUNDLE BRANCH BLOCK [120+ ms QRS DURATION, UPRIGHT V1, 40+ ms S IN I/aVL/V4/V5/V6] Compared to ECG 08/09/2022 00:11:06 Sinus bradycardia no longer present Electronically Signed On 08-09-2022 19:05:40 GAS LEAK TESTER by Amilcar Ring M.D. [email or web address] memorial hospitalSomera Communicationsuniversity hospitals geneva [facility].[employer]/store/OM/[id number]
[2022-08-09 04:23] LABS: Troponin 5 6HR 17.57 ng/L (0-15)
[2022-08-09 04:25] LABS: Troponin 5 6HR Delta 11.57 ng/L (0-12)
[2022-08-09 04:35] LABS: Influenza A by IFA negative (Negative); Influenza B by IFA negative (Negative)
[2022-08-09] MEDS: enoxaparin 40 mg/0.4 mL Syringe SUBCUT (05:24)
[2022-08-09 06:29] LABS: Basophils # 0.1 10^3/uL (0.0-0.1); Basophils % 0.6 %; Eosinophils # 0.3 10^3/uL (0.0-0.8); Hematocrit 47.5 % (42.0-52.0); Hemoglobin 15.7 g/dL (11.7-16.6); Lymphocytes # 2.4 10^3/uL (0.8-4.8); Lymphocytes % 28.2 %; Mean Corpuscular HGB Conc 33.1 g/dL (30.0-36.0); Mean Corpuscular Hemoglobin 29.1 pg (28.0-34.0); Mean Platelet Volume 9.3 fL (7.4-10.4); Monocytes # 0.9 10^3/uL (0.2-0.9); Monocytes % 10.4 %; Neutrophils # 4.86 10^3/uL (1.8-7.7); Neutrophils % 57.3 %; Nucleated Red Blood Cells % 0 %; Platelet Count 245 10^3/cmm (130-400); Red Cell Distribution Width 12.9 % (12.1-15.1); White Blood Count 8.5 10^3/uL (4.0-10.0)
[2022-08-09 06:48] LABS: Anion Gap 17.2 (5-19); Blood Urea Nitrogen 13 mg/dL (8-23); C Reactive Protein 6.7 mg/L (0.0-4.9); Calcium 9.3 mg/dL (8.5-10.5); Carbon Dioxide 26 mmol/L (22-29); Chloride 98 mmol/L (98-107); Glucose 94 mg/dL (65-115); Magnesium 2.1 mg/dL (1.7-2.3); Osmolality Calculated 284 mOsm/kg (285-295); Potassium 4.2 mmol/L (3.5-5.1); Sodium 137 mmol/L (136-145)
[2022-08-09] MEDS: clopidogrel 75 mg Tablet PO (08:57)
[2022-08-09] MEDS: aspirin 81 mg Chew Tablet PO (08:57)
[2022-08-09] MEDS: pantoprazole DR 40 mg Tablet PO (08:57)
[2022-08-09] MEDS: allopurinol 300 mg Tablet PO (09:49)
--- NOTE | 2022-08-09 11:37 | PM.DCS ---
Discharge Providers Date of Admission: 08/09/22 02:21 Date of Discharge: August 09, 2022 Attending Provider at Admission: Ace Han MD Attending Provider at Discharge: Jimenez Duque MD Primary Care Provider: Angelika Johnson Diagnoses at Discharge Discharge Diagnosis (1) Chest pain: Status: Acute Reason for Visit Reason for Visit: sob, right shoulder pain, post heart surgery Hospital Course Hospital Course Ashish is an 81-year-old white male who presented to the hospital with complaints of right flank pain, right neck pain, right shoulder pain, frequent being and some shortness of breath. He had recently had an LAD angioplasty from an in-stent stenosis on July 26. He has been compliant with all his medications. Here in the hospital troponin was slightly elevated but had no significant trend. EKG showed no concerning changes. The following day he described his discomfort as sharp, mainly right posterior neck, occasionally radiating down his right arm. I discussed with him other potential causes such as radiculopathy. He had had a CTA of chest abdomen and pelvis on admission that was not revealing. It was thought he could discharge home, with close follow-up with his outpatient physician. Secondary to frequent burping, upper gastrointestinal symptoms initiated Protonix twice daily for the next 2 weeks and then reduce back to once daily. May have Tylenol for pain but avoid ibuprofen/NSAIDs. Small pulmonary nodule seen left lower lobe, which can be followed as an outpatient with repeat scan in 6 to 12 months. I discussed with him risks and benefits, and he agreed with plan. He will return for any severe pain. Physical Exam Narrative: General exam no distress Neck is supple no lymphadenopathy thyromegaly Cardiovascular regular rate and rhythm without murmur Lungs clear Abdomen is soft with positive bowel sounds Extremities no cyanosis, or edema, cap refill brisk Skin no rash Discharge Data Studies Completed and Pending Completed Studies During Hospitalization Category Date Time Status CTA chest CT abdomen pelvis [CT angio chest w abd pel w Cat Scan 08/08/22 22:35 Completed con] Stat XR chest 1V portable [id number] Stat Exams 08/08/22 22:08 Completed Pending at discharge Category Date Time Status Urinalysis and Microscopic Routine Lab 08/09/22 08:31 Uncollected Radiology Impressions Chest X-Ray 08/08/22 22:08 IMPRESSION: Mild cardiomegaly. Chest/Abdomen/Pelvis CT 08/08/22 22:35 IMPRESSION: 1. No pulmonary embolism. 2. No cause for acute pain is identified. 3. 7 mm left lower lobe perifissural nodule image 242. For patients at low risk (minimal or absent history of smoking and of other known risk factors), recommend CT Chest at 6-12 months, then consider CT Chest at 18-24 months. For patients at high risk (history of smoking or of other known risk factors), recommend CT Chest at 6-12 months, then CT Chest at 18-24 months. IMPRESSION: 1. Fatty infiltration of the liver. 2. No cause for acute pain is identified. COMMENTS: Consistent with the [place] [employer]'s Incidental Findings Committee white paper (J Am Eric Radiol 2018): Any incidental renal lesion less than 1 cm or classified as too small to characterize, or any incidental cystic renal lesion characterized as simple-appearing, is likely benign. No follow-up imaging is recommended for these lesions per consensus recommendations based on imaging criteria. Laboratory Results WBC 8.5 10^3/uL (4.0-10.0) 08/09/22 03:19 RBC 5.40 10^6/uL (4.1-5.3) H 08/09/22 03:19 Hgb 15.7 g/dL (11.7-16.6) 08/09/22 03:19 Hct 47.5 % (42.0-52.0) 08/09/22 03:19 MCV 88.0 fl (80-94) 08/09/22 03:19 MCH 29.1 pg (28.0-34.0) 08/09/22 03:19 MCHC 33.1 g/dL (30.0-36.0) 08/09/22 03:19 RDW 12.9 % (12.1-15.1) 08/09/22 03:19 Plt Count 245 10^3/cmm (130-400) 08/09/22 03:19 MPV 9.3 fL (7.4-10.4) 08/09/22 03:19 Neut % (Auto) 57.3 % 08/09/22 03:19 Lymph % (Auto) 28.2 % 08/09/22 03:19 [place] % (Auto) 10.4 % 08/09/22 03:19 Eos % (Auto) 3.0 % 08/09/22 03:19 Baso % (Auto) 0.6 % 08/09/22 03:19 Neut # (Auto) 4.86 10^3/uL (1.8-7.7) 08/09/22 03:19 Lymph # (Auto) 2.4 10^3/uL (0.8-4.8) 08/09/22 03:19 [place] # (Auto) 0.9 10^3/uL (0.2-0.9) 08/09/22 03:19 Eos # (Auto) 0.3 10^3/uL (0.0-0.8) 08/09/22 03:19 Baso # (Auto) 0.1 10^3/uL (0.0-0.1) 08/09/22 03:19 Nucleated RBC % (auto) 0 % 08/09/22 03:19 Nucleated RBCs # 0.0 /100WBC 08/09/22 03:19 Sodium 137 mmol/L (136-145) 08/09/22 03:19 Potassium 4.2 mmol/L (3.5-5.1) 08/09/22 03:19 Chloride 98 mmol/L (98-107) 08/09/22 03:19 Carbon Dioxide 26 mmol/L (22-29) 08/09/22 03:19 Anion Gap 17.2 (5-19) 08/09/22 03:19 BUN 13 mg/dL (8-23) 08/09/22 03:19 Creatinine 1.0 mg/dL (0.7-1.2) 08/09/22 03:19 GFR Calculation Not Reportable 08/09/22 03:19 Glucose 94 mg/dL (65-115) 08/09/22 03:19 Calculated Osmolality 284 mOsm/kg (285-295) L 08/09/22 03:19 Calcium 9.3 mg/dL (8.5-10.5) 08/09/22 03:19 Magnesium 2.1 mg/dL (1.7-2.3) 08/09/22 03:19 Total Bilirubin 0.5 mg/dL (0.15-1.2) 08/08/22 22:29 AST 15 U/L (0-40) 08/08/22 22:29 ALT 25 U/L (0-41) 08/08/22 22:29 Alkaline Phosphatase 72 U/L (40-130) 08/08/22 22:29 Troponin T Baseline 6 ng/L (0-15) 08/08/22 22:29 Troponin T 120 Minute 19.35 ng/L (0-15) H 08/09/22 00:09 Delta Troponin T 13.35 ABS# (0-10) H* 08/09/22 00:09 Troponin T Hi Sens 6Hr 17.57 ng/L (0-15) H 08/09/22 03:19 Troponin T Hi Sens 6Hr Delta 11.57 ng/L (0-12) 08/09/22 03:19 C-Reactive Protein 6.7 mg/L (0.0-4.9) H 08/09/22 03:19 NT-Pro-B Natriuret Pep 300 pg/mL (0-450) 08/08/22 22:29 Total Protein 7.0 g/dL (6.6-8.7) 08/08/22 22:29 Albumin 4.3 g/dL (3.5-5.2) 08/08/22 22:29 Globulin 2.7 g/dL (1.3-4.6) 08/08/22 22:29 Influenza Type A Ag negative (Negative) 08/09/22 04:05 Influenza Type B Ag negative (Negative) 08/09/22 04:05 Vitals Last Vital Signs Temp 97.6 F 08/09/22 11:33 Pulse 69 08/09/22 11:33 Resp 18 08/09/22 11:33 BP 144/86 08/09/22 11:33 Pulse Ox 92 08/09/22 11:33 O2 Del Method 08/09/22 11:33 O2 Flow Rate 4 08/09/22 01:46 Discharge Plan Discharge Patient Disposition: Home Condition: Stable Prescriptions: Continued pantoprazole 40 mg tablet,delayed release (DR/EC) 40 mg PO QDAY saw palmetto 450 mg capsule 450 mg PO DAILY enalapril maleate 10 mg tablet 10 mg PO DAILY glucosamine-chondroitin 900 mg tablet 900 mg PO DAILY sonovive 1 tab PO DAILY tamsulosin 0.4 mg capsule 0.4 mg PO DAILY PRN (Reason: Urinary Retention) cyanocobalamin (vitamin B-12) 5,000 mcg capsule 5,000 mcg PO DAILY cetirizine [Zyrtec] 10 mg tablet 10 mg PO DAILY PRN (Reason: Allergy Symptoms) nitroglycerin [Nitrostat] 0.4 mg tablet, sublingual 0.4 mg SUBLINGUAL Q5M PRN (Reason: chest pain) Qty: 25 6RF aspirin 81 mg tablet,chewable 81 mg PO DAILY Qty: 90 1RF clopidogrel 75 mg tablet 75 mg PO DAILY Qty: 90 1RF pravastatin 80 mg tablet 80 mg PO BEDTIME Fish Oil 300-1,000 mg Capsule 1 cap PO DAILY Niacivamide 500 mg PO BID Discharge Orders: Discharge Order (Routine); Ordered 08/09/22 Ordered By: Jimenez Duque Referrals: Angelika Johnson PA [Primary Care Provider] - 08/13/22 9:00 am Discharge Diet: Cardiac Discharge Activity: Increase activity as tolerated Patient Instructions: Opioid Safety Activity Restrictions/Additional Instructions: Increase your Protonix to 40 mg twice daily for 2 weeks and then go back down to 40 mg once daily Take all other medicine as prescribed Is it with your primary care provider regarding your neck pain, possible radiculopathy Return for any concerns May discharge after he gives urinalysis with micro. Make sure it is is run Patient's Health Concerns: Right neck flank and back pain Assessment: No evidence of myocardial infarction, suspect musculoskeletal pain Plan of Treatment: Tylenol as needed Goals: Reducing pain, no recurrence Discharge Attestations Time Spent in Discharge Care*: greater than 30 min Quality Metrics Clinical Quality Measures [ No reported AMI, CVA or VTE this stay] Coding Level of Care Code Acute [facility] note Diagnoses Chest pain R07.9
--- NOTE | 2022-08-09 11:40 | PC.CHAP ---
Pastoral Care Encounter/Spiritual Assessment Type of Contact [] Declined roving department end finder visit [] Patient/Family/Request visit [] Outpatient visit [] Follow-up visit [] Physician referral [] Code/Alert [x] Routine visit [] Staff referral [] Actively dying [] Patient sleeping [] Family support [] [] Out of room [] Palliative care [] [] Receiving care in room [] Pre-surgical visit [] Trauma [] Long length of stay [] ICU visit [] Other: Relational/Emotional Strength [x] Patient feels connected with others/family/visitors/staff [] Distress [] Loneliness/isolation [] Abandonment Spirituality of Patient [x] Person of Betsey [x] Attends Amish of their Betsey [x] Believes in Prayer [x] Reads Bible or Jewish materials [] There are Spiritual issues to be addressed Wire Walker Interventions [x] Prayer [x] Active listening [x] Non-anxious presence [x] Spiritual/emotional support [] Crisis/trauma care [] Spiritual counseling [] Bereavement support [] Provided bereavement packet [] Provided Bible/devotional materials [] Provided toy/stuffed animal, coloring book to patient or family member [] Provided Communion [] Anointing/Schneider [] Salvation [x] Completed spiritual assessment [] Other: Impact on Illness or Injury [] Angry [] Fearful [] Anxious [] Often cries [] Exhaustion [] Unable to work [] Unable to attend nondenominational [] Unable to walk/stand [] Unable to read [] Unable to drive [] Unable to eat/drink [] Unable to sleep [] Unable to be with family [] Patient intubated [] Other: Summary Time spent with patient 10 min
[2022-08-09 12:26] LABS: Glucose Urine UA Norm (Normal); Protein Urine 1+ (Negative); Urine Appearance Clear (CLEAR); Urine Color Dark Yellow (Yellow); pH Urine 5 (5-7)
[2022-08-09 12:27] LABS: Bacteria Urine TRACE /hpf; Bilirubin Urine 1+ (Negative); Blood Urine Neg (Negative); Ketones Urine 1+ (Negative); Leukocyte Esterase Urine Trace (Negative); Mucus Urine 2+ /hpf; Nitrate Urine Negative (Negative); RBC Urine 0-4 /hpf (0-2); Squamous Epithelial Cell Urine 0-4 /hpf (0-5); Urobilinogen Urine 1 mg/dL (Negative); WBC Urine 0-4 /hpf (0-5)
[2022-08-09 12:28] LABS: Add Urine Culture? No; Hyaline Casts Urine 0-4 /lpf
--- NOTE | 2022-08-09 13:22 | PC.NURSE ---
Mr Armijo was discharged at 1220 today. Full instructions to follow up with PCP given. Patient verbalized understanding. IV removed and intact. Patient tolerated well. Patient ambulated to the surgical services door with nurse.
== END 2022-08-09 12:20 | disposition home or self-care (01) ==
LOC: ER 08-09 02:11 → CSU 08-09 02:21
PROVIDERS: Nurse Practitioner Family; Admitting Provider Internal Medicine; Emergency Provider Emergency Medicine; PCP Physician Assistant; Visit Provider Internal Medicine
DX: R07.9 Chest pain, unspecified (principal); R10.9 Unspecified abdominal pain; M25.511 Pain in right shoulder; Z98.890 Other specified postprocedural states; R06.02 Shortness of breath; Z95.5 Presence of coronary angioplasty implant and graft; I25.10 Atherosclerotic heart disease of native coronary artery without angina pectoris; J44.9 Chronic obstructive pulmonary disease, unspecified; E78.5 Hyperlipidemia, unspecified; I10 Essential (primary) hypertension; I25.2 Old myocardial infarction; Z87.891 Personal history of nicotine dependence
CPT/HCPCS: 36415; 71045; 71275; 74177; 80048; 80053; 81001; 83735; 83880; 84484; 85025; 86140; 87804; 93005; 96372; 96374; 96375; 99285; G0378; J1650; J1885; J2270; J2405; Q9967

== ENCOUNTER → 2022-08-18 11:17 | Outpatient (BNVA) | payer OTHER, SELFPAY | PROVIDERS: PCP Physician Assistant; Visit Provider Internal Medicine Cardiovascular Disease | DX: I25.10 Atherosclerotic heart disease of native coronary artery without angina pectoris (principal); Z95.820 Peripheral vascular angioplasty status with implants and grafts; E78.5 Hyperlipidemia, unspecified; I10 Essential (primary) hypertension; M54.10 Radiculopathy, site unspecified; I25.2 Old myocardial infarction; Z87.891 Personal history of nicotine dependence | CPT/HCPCS: 99213 ==

== ENCOUNTER 2022-10-11 20:00 | Outpatient (CLI) | payer OTHER, SELFPAY | END 2022-10-11 20:01 | disposition home or self-care (01) | LOC: SLEEP 10-12 06:36 | PROVIDERS: PCP Physician Assistant; Visit Provider Nurse Practitioner | DX: R06.83 Snoring (principal); R53.83 Other fatigue; G47.33 Obstructive sleep apnea (adult) (pediatric); R09.02 Hypoxemia | CPT/HCPCS: 95810 ==

== ENCOUNTER 2022-12-08 20:00 | Outpatient (CLI) | payer OTHER, SELFPAY | END 2022-12-08 20:01 | disposition home or self-care (01) | LOC: SLEEP 12-09 06:13 | PROVIDERS: PCP Physician Assistant; Visit Provider Nurse Practitioner | DX: G47.33 Obstructive sleep apnea (adult) (pediatric) (principal) | CPT/HCPCS: 95811 ==

== ENCOUNTER → 2023-02-16 14:55 | Outpatient (BNVA) | payer OTHER, SELFPAY | PROVIDERS: PCP Physician Assistant; Visit Provider Internal Medicine Cardiovascular Disease | DX: I25.10 Atherosclerotic heart disease of native coronary artery without angina pectoris (principal); E78.5 Hyperlipidemia, unspecified; I10 Essential (primary) hypertension; J44.9 Chronic obstructive pulmonary disease, unspecified; F17.201 Nicotine dependence, unspecified, in remission | CPT/HCPCS: 99214 ==

== ENCOUNTER → 2023-04-14 13:17 | Outpatient (BNVA) | payer OTHER, SELFPAY | PROVIDERS: PCP Physician Assistant; Visit Provider Internal Medicine Cardiovascular Disease | DX: I21.9 Acute myocardial infarction, unspecified (principal); R00.1 Bradycardia, unspecified | CPT/HCPCS: 93005 ==

== ENCOUNTER 2023-04-14 14:01 | Inpatient (IN) | payer OTHER, SELFPAY ==
[2023-04-14] VITALS (48 sets, daily range): BP systolic 120–161; BP diastolic 59–73; PULSE 23–37; RESP 16–25; TEMP 36.3–36.6; O2SAT 80–97; BMI 30.9
--- NOTE | 2023-04-14 14:57 | PM.HP ---
Providers/Chief Complaint Admitting Physician: Chester Keen MD Primary Care Provider: Angelika Johnson Chief Complaint: 2nd degree heart block History of Present Illness Ashish Armijo is a 82 year old male who I have seen for years. He has a history of coronary disease with stents, COPD, dyslipidemia, hypertension and a prior SC. About a week ago he noticed that he was getting extra tired and not able to do as much as he previously was able to do. He has had episodes of dizziness and near syncope with palpitations and rather profound shortness of breath. He called the office today and asked to be seen. The nurses noted that his heart rate was 30. Twelve-lead EKG was obtained and he is in second-degree AV block type II. That is he is in 2-1 AV block with a heart rate of 30. He is being admitted electively for a pacemaker. He is not on any anticoagulants but he does take aspirin and Plavix because of his underlying coronary disease. He is not on any AV lakeisha blocking agents. Review of Systems Narrative: Review of systems is negative other than what is described above Medications/Allergies Home Medications Medication Instructions Recorded Confirmed Last Taken Type pantoprazole 40 mg tablet,delayed 40 mg PO QDAY 10/01/19 04/14/23 07/25/22 10:00 History release antiarthritic combination no.2 900 900 mg PO DAILY 03/30/21 04/14/23 07/25/22 10:00 History mg tablet (glucosamine-chondroitin) enalapril maleate 10 mg tablet 10 mg PO DAILY 03/30/21 04/14/23 07/25/22 10:00 History cyanocobalamin (vitamin B-12) 5,000 mcg PO DAILY 07/13/22 04/14/23 07/25/22 10:00 History 5,000 mcg capsule nitroglycerin 0.4 mg sublingual 0.4 mg sublingual Q5M PRN chest 07/13/22 04/14/23 Unknown Rx tablet (Nitrostat) pain #25 tabs saw palmetto 450 mg capsule 450 mg PO DAILY 07/13/22 04/14/23 07/25/22 10:00 History tamsulosin 0.4 mg capsule 0.4 mg PO DAILY PRN Urinary 07/13/22 04/14/23 07/25/22 10:00 History Retention aspirin 81 mg chewable tablet 81 mg PO DAILY #90 tabs 07/27/22 04/14/23 Unknown Rx Niacivamide 500 mg PO BID 08/09/22 04/14/23 Unknown History pravastatin 80 mg tablet 80 mg PO BEDTIME 08/09/22 04/14/23 Unknown History clopidogrel 75 mg tablet 75 mg PO DAILY #90 tabs 01/17/23 04/14/23 Unknown Rx cetirizine 10 mg tablet (Zyrtec) 10 mg PO DAILY Allergy Symptoms 02/16/23 04/14/23 Unknown History Allergies Allergy/AdvReac Type Severity Reaction Status Date / Time Penicillins Allergy Unknown Unknown Verified 04/14/23 08:59 PFSH Acute PFSH: Medical History (Updated 04/14/23 @ 15:01 by Chester Keen MD) ASHD (arteriosclerotic heart disease) Chest pain COPD (chronic obstructive pulmonary disease) Dyslipidemia High degree atrioventricular block HTN (hypertension) Myocardial infarction Radiculopathy affecting upper extremity Tobacco abuse, in remission Surgical History S/P angioplasty with stent Family History Father , AGE 90 CAD (coronary artery disease) Cancer COLON Mother Stroke Social History Smoking and tobacco status: former smoker Quit status (tobacco): has quit using tobacco Alcohol intake: former Substance/Drug Use: never Household members: spouse Marital status: service: Yes Current occupational status: retired Current gender identity: Male Betsey/Quaker: Congregational Physical Exam Narrative: GENERAL: In general he is comfortable. He is sitting up in the room talking and interacting. He has a normal blood pressure 136/56. HEENT: Exam within normal limits. NECK: Supple without jugular vein distention. The carotid upstroke is normal without bruits. BACK: Exam normal. LUNGS: Clear. HEART: Regular rate and rhythm. He is bradycardic heart rate 30. ABDOMEN: Benign without organomegaly or tenderness. EXTREMITIES: No edema. NEUROLOGIC: Exam normal. SKIN: Unremarkable. A&P Assessment and plan (1) Tobacco abuse, in remission: (2) ASHD (arteriosclerotic heart disease): (3) Myocardial infarction: (4) S/P angioplasty with stent: (5) Dyslipidemia: (6) HTN (hypertension): Qualifiers: Hypertension type: essential hypertension Qualified Code(s): I10 - Essential (primary) hypertension (7) COPD (chronic obstructive pulmonary disease): Qualifiers: COPD type: unspecified COPD Qualified Code(s): J44.9 - Chronic obstructive pulmonary disease, unspecified (8) High degree atrioventricular block: Plan He has high degree AV block and needs a permanent pacemaker. I will put him in the hospital and have the pacemaker placed as soon as possible. I did talk to him about this and explained it to both the patient and his . Attestations Medical Necessity Statement*: Hospitalization for high degree AV block and need for permanent pacemaker. and Moderate Time for a total of 40 minutes, includes reviewing past or interval history, examining/interviewing patient, placing orders, counseling patient/family/other support, updating patient/family/other support, discussing plan of care with staff, communicating with other healthcare providers, documenting encounter and coordinating care Diagnoses Tobacco abuse, in remission F17.201 ASHD (arteriosclerotic heart disease) I25.10 Myocardial infarction I21.9 S/P angioplasty with stent Z95.820 Dyslipidemia E78.5 HTN (hypertension) I10 Hypertension type: essential hypertension COPD (chronic obstructive pulmonary disease) J44.9 COPD type: unspecified COPD High degree atrioventricular block I44.39
[2023-04-14 16:08] LABS: Basophils % 0.6 %; Eosinophils # 0.1 10^3/uL (0.0-0.8); Eosinophils % 2.1 %; Hematocrit 44.6 % (42.0-52.0); Hemoglobin 14.6 g/dL (11.7-16.6); Lymphocytes # 2.2 10^3/uL (0.8-4.8); Lymphocytes % 34.8 %; Mean Corpuscular HGB Conc 32.7 g/dL (30.0-36.0); Mean Corpuscular Hemoglobin 28.5 pg (28.0-34.0); Mean Corpuscular Volume 87.1 fl (80-94); Mean Platelet Volume 9.9 fL (7.4-10.4); Monocytes # 0.6 10^3/uL (0.2-0.9); Monocytes % 9.2 %; Neutrophils # 3.28 10^3/uL (1.8-7.7); Neutrophils % 52.8 %; Nucleated Red Blood Cells % 0 %; Platelet Count 199 10^3/cmm (130-400); Red Blood Count 5.12 10^6/uL (4.1-5.3); Red Cell Distribution Width 13.2 % (12.1-15.1); White Blood Count 6.2 10^3/uL (4.0-10.0)
[2023-04-14 17:10] LABS: Anion Gap 15.4 (5-19); Blood Urea Nitrogen 16 mg/dL (8-23); Calcium 9.4 mg/dL (8.5-10.5); Carbon Dioxide 26 mmol/L (22-29); Chloride 104 mmol/L (98-107); Creatinine Clr Calc Pharmacy 64.3384; Glucose 79 mg/dL (65-115); Osmolality Calculated 292 mOsm/kg (285-295); Potassium 4.4 mmol/L (3.5-5.1); Sodium 141 mmol/L (136-145)
--- NOTE | 2023-04-14 17:24 | USCV_ITS ---
Ashish Armijo Age: 82 Gender: M : 1940 Exam Date: 04/14/2023 17:49 Ordering Phys: Karolina Lam MD ([email or web address]) Technologist: MARK Exam Location: [facility] [place] Indication: severe bradycardia, 2nd deg AVB, hx CAD / stents, COPD, HTN, HL, prior MD BP: 120 / 62 HR: 34 Rhythm: Sinus bradycardia 2nd deg AVB Technical Quality: Adequate MEASUREMENTS (Male / Female) Normal Values 2D ECHO LV Diastolic Diameter PLAX 5.3 cm 4.2 - 5.9 / 3.9 - 5.3 cm LV Systolic Diameter PLAX 4.6 cm IVS Diastolic Thickness 1.4 cm 0.6 - 1.0 / 0.6 - 0.9 cm IVS Systolic Thickness 1.5 cm LVPW Diastolic Thickness 0.9 cm 0.6 - 1.0 / 0.6 - 0.9 cm LVPW Systolic Thickness 1.3 cm LVOT Diameter 2.0 cm LV Ejection Fraction 2D Teich 28.8 % LV Ejection Fraction MOD 2C 71.8 % LV Ejection Fraction 2C AL 72.6 % LA Diameter 3.8 cm LA Width 4.4 cm LA Height 5.2 cm RA Width 3.0 cm RA Height 4.0 cm Aorta at Sinotubular Diameter 3.7 cm IVC Diameter 2.6 cm M-MODE Aortic Annulus Diameter 4.4 cm LA Ao Ratio MM 0.9 MV E Point Septal Separation 0.6 cm DOPPLER AV Peak Velocity 108.0 cm/s LVOT Peak Velocity 102.0 cm/s AV Area Cont Eq vti 2.2 cm squared AV Area Cont Eq pk 2.9 cm squared MV Peak Velocity 161.0 cm/s MV Area PHT 1.9 cm squared Mitral E to A Ratio 0.8 MV E' Velocity 56.0 cm/s Mitral E to MV E' Ratio 6.6 Mitral E to LV E' Lateral Ratio 7.8 Mitral E to LV E' Septal Ratio 5.7 TV Peak E Velocity 46.0 cm/s PV Peak Velocity 97.0 cm/s RV Acceleration Time 0.1 s RV Ejection Time 0.4 s RV AcT/ET 0.2 FINDINGS Left Ventricle Normal LV size with a borderline low ejection fraction of 71%. Hypokinetic basal inferolateral wall segment segment.Grade I/IV diastolic dysfunction (abnormal relaxation filling pattern), normal to mildly elevated filling pressures. Right Ventricle Normal right ventricular size and systolic function. Right Atrium The right atrium is normal in size. Left Atrium The left atrium is normal in size. Mitral Valve Minimally thickened mitral valve Aortic Valve Thickened aortic valve. Tricuspid Valve No gross abnormalities noted Pulmonic Valve Pulmonic valve not well visualized. Pericardium Normal pericardium without effusion. Aorta Plaque seen in the ascending aorta. IVC The inferior vena cava appears normal. CONCLUSIONS Normal LV size with a borderline low ejection fraction of 71%. Hypokinetic basal inferolateral wall segment segment.Grade I/IV diastolic dysfunction (abnormal relaxation filling pattern), normal to mildly elevated filling pressures. Minimally thickened mitral valve. Thickened aortic valve. There is no pericardial effusion. Compared to the study from 01/11/2019, the wall motion abnormality appears to be new Dr Karolina Lam MD FAC (Electronically Signed) Final Date: 14 April 2023 21:38 S
--- NOTE | 2023-04-14 18:41 | XRR_ITS ---
PROCEDURE INFORMATION: Exam: XR Chest Exam date and time: 04/14/2023 6:53 PM Age: 82 years old Clinical indication: Screening exam; Pre-operative exam; Cardiovascular screening; Additional info: Pre op for port TECHNIQUE: Imaging protocol: Radiologic exam of the chest. Views: 1 view. COMPARISON: CR XR chest 1V portable [id number] 08/08/2022 10:46 PM FINDINGS: Lungs: Unremarkable. No consolidation. Pleural spaces: Unremarkable. No pleural effusion. No pneumothorax. Heart/Mediastinum: Unremarkable. No cardiomegaly. Bones/joints: Unremarkable. XR/XR chest 1V portable [id number] IMPRESSION: No acute findings.
--- NOTE | 2023-04-14 22:38 | PC.NURSE ---
Called [employer] printing supplies sales representative to inform them of pacemaker, and possible AICD, placement to be done tomorrow.
[2023-04-15] VITALS (64 sets, daily range): BP systolic 90–156; BP diastolic 60–83; PULSE 22–62; RESP 16–21; TEMP 36.3–36.9; O2SAT 89–97
--- NOTE | 2023-04-15 06:18 | XACV_ITS ---
Exam Room: [facility] Ht: 183 cm Wt: 103 kg BSA: 2.31 m2 Gender: Male : 1940 Any Known Allergies: Penicillins Exam Priority: Routine Procedure(s): Procedure Description: Diagnostic procedure Procedure Description: Miscellaneous Procedure Description: Temporary Pacemaker Insertion Procedure Description: Dual Chamber Pacemaker Implant Diagnostic Cath Status: Urgent Diagnostic Findings * Left subclavian venogram was performed to visualize the subclavian vein and superior vena cava. 20 cc of Omnipaque was injected into the antecubital vein on the left side. The left subclavian vein and the left brachiocephalic trunk were found to be patent and tortuous. No evidence of stenosis was noted. The brachiocephalic trunk was draining into the superior vena cava which in turn drains to the right atrium. Conclusions 1. Patent and tortuous left subclavian/brachiocephalic trunk with no evidence of stenosis. Clinical Evaluation EBL: 5mL-10mL Procedural Details Procedure Consent Obtained. Pre-Procedure Time Out. Identified patient by full name and date of as verbalized by the patient/guarantor. Does the consent match the physician's order: Yes. Accurate & Complete Informed Consent: Yes. Inpatient/Outpatient History & Physical on Chart: Yes. If H&P is completed, is and addenduem needed: No; If yes, is the addendum complete: N/A. Visualize and Verify Site with Patient/Guarantor: N/A. Relevant Radiology Images available: Yes. Pre-op teaching completed and patient verbalized understanding. The risks, benefits, and alternatives of sedation and/or procedure were discussed by physician. The patient agrees to continue. Procedure started. Correct patient, site and procedure confirmed by cath team. PERRLA. 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 Lungs clear x 5 lobes. IV Site on Arrival: 18 gauge in the left anticubital. IV Site on Arrival: 20 gauge in the right anticubital. IV Fluids: 0.9% NaCl at KVO. 0 mL infused prior to metallurgical lab technician. Oxygen started at 2liters/min via nasal canula. bilateral subclavian region was prepped with chloroprep then draped in the usual sterile fashion. Physician notified. Baseline sample Acquired. HR: 41 BPM. Supplies: Cath pack, micropunture, bovie pen, 2-0 silk, 0 surgilon, 3-0 vicryl, 4-0 vicryl. AP Pads attached. Physician arrived. Physician scrubbed in. Immediate Pre-Procedure Time Out. Correct Patient: Yes; Correct Procedure: Yes; Correct Site: Yes; Correct Patient Position: Yes; Correct Supplies: Yes; Dried Flammable Prep: Yes; Blood Products Available: N/A;. Lidocaine 1% infiltrated to the right groin. Venous access obtained with a micropuncture set. Temporary pacer inserted. Physician and scrub re-gowned and gloved, will procede with PPM insertion. Pre sponge count: 95. Pre sharps count: 20. Lidocaine 1% with Epi infiltrated to Left subclavian area. Pre instrument count: 13. 20 mL contrast injection was performed for subclavian visualization. Access obtained in left subclavian vein with micropuncture set. Inserted guidewire #1 into left subclavian vein. Lidocaine 1% infiltrated to Left subclavian area. Incision and pacer pocket made in left subclavian region. Lidocaine 1% infiltrated to Left subclavian area. Unable to obtain 2nd venous access in the left subclavian, aborted. Inserted 7 fr. safe sheath into left subclavian vein. Inserted guidewire #2 into left subclavian vein. Sheath out. Re-Inserted 7 fr. safe sheath into left subclavian vein over guidewire #1. Inserted Ventricular lead and tested. V lead retested. V lead retested. V lead retested. Safe sheath peeled away. Lead left intact. Ventricular lead sutured into place with surgilon. V lead retested. Inserted 7 fr. safe sheath into left subclavian vein. Inserted Atrial lead and tested. A lead retested. A lead repositioned. A lead retested. Safe sheath peeled away. Lead left intact. A lead retested. Atrial lead sutured into place with surgilon. V Lead Lot# [id number] EXP: 11/30/2024. A Lead Lot# [id number] EXP: 12/24/2024. Generator Lot# [id number] EXP:08/18/2024. A lead retested. V lead retested. Antibiotic flush used to clean pacer pocket. TPM generator turned off. Generator attached and tested. TPM lead removed from the 6Fr Arrow sheath. Generator secured with surgilon. Subcutaneous tissue closed with 3-0 vicryl. Venous sheath removed and manual pressure held until hemostasis achieved. Cutaneous tissue closed with 4-0 vicryl. All final counts correct. left subclavian pocket dressed per physician order. Shoulder immobilizer in place. No bleeding or hematoma noted at left subclavian pocket. Post Procedure: Pulses reassessed and unchanged. Total IV fluids: 200 mL. Complications: None. Estimated blood loss: 5mL-10mL. Responsiveness - Normal response to verbal stimuli; alert and oriented, PERRLA. Airway - Unaffected, no intervention required; spontaneous ventilation. Circulation: W/N/L, pulses unchanged. Nausea/Vomiting: No. Procedure completed. Vital chart was stopped. Patient transferred by bed to 1st floor. Access Site Site: Right Femoral vein Sheath Size: 6 Fr Hemostasis Success: Unsuccessful Procedure Medications Start: 11:55 AM Stop: 11:55 AM Medication: Vancomycin Amount: 250 ml/hr Route: I.V.P.B Start: 12:00 PM Stop: 12:00 PM Medication: Fentanyl Amount: 25 mcg Route: I.V. Start: 12:16 PM Stop: 12:16 PM Medication: Versed 1 mg and Fentanyl 25 mcg Amount: 1 Route: I.V. Start: 12:23 PM Stop: 12:23 PM Medication: 0.9% Saline Amount: 100 ml/hr Route: I.V. drip Start: 1:08 PM Stop: 1:08 PM Medication: Versed Amount: 1 mg Route: I.V. Start: 1:13 PM Stop: 1:13 PM Medication: Fentanyl Amount: 25 mcg Route: I.V. Start: 1:28 PM Stop: 1:28 PM Medication: Fentanyl Amount: 25 mcg Route: I.V. I, the attending physician, have reviewed and verified all procedure medications. Yes, all medications given per verbal order History/Risk Factors Hypertension: Yes Dyslipidemia: Yes Peripheral Arterial Disease (PAD): No Myocardial Infarction (FL): No Obesity: No Renal Disease: No Prior Interventions PCI: Yes CABG: No Valve Surgery: No Report Signatures Finalized by Dr Karolina Lam MD [facility] on 04/15/2023 08:16 PM
--- NOTE | 2023-04-15 07:14 | PC.NURSE ---
Preop Patient brought to CPRU from CSU to prep for 0700 pacemaker. After speaking with physician, patient is now scheduled for 1100 pacemaker. Patient and notified of Updated times. 20g to the right AC inserted X 1 attempt . Pt tolerated well. Hair clipped. Pt remains NPO for procedure and will remain in preop until procedure. Pt and oriented to room, call light in reach.
[2023-04-15] MEDS: dextrose 5%-sod chloride 0.45% 1,000 ML 100 ML IV ×2 (07:20→17:39)
--- NOTE | 2023-04-15 07:30 | PC.NURSE ---
Patient taken for pacemaker placement at 0650.
--- NOTE | 2023-04-15 09:27 | P.CONIM_ITS ---
Providers/Reason For Consult Consulting Physician/Specialty*: REYNA Lam MD/cardiology Reason for Consult*: Consider permanent pacemaker plantation Requesting Physician: Dr. Keen Attending Physician: Chester Keen MD Primary Care Provider: Angelika Johnson History of Present Illness History of Present Illness Ashish Armijo is a 82 year old male, is admitted to hospital with complaints of generalized weakness/dizziness. Patient was found to be with a heart rate in the upper 20s and low 30s. I was consulted for a permanent pacemaker implantation. Patient denies any chest pain. He has not had syncopal episodes. No fever or chills. No cough He had a Myocardial perfusion imaging in May of last year followed by a cardiac catheterization in July. He was found to have a high-grade in-stent stenosis in the mid LAD. He had a PCI of this lesion. His LV ejection fraction was around 40% based on the perfusion scan. He had an echocardiogram yesterday and the ejection fraction was found to be within normal limits. Patient has been taking Plavix since then. The last dose of Plavix was yesterday morning Review of Systems Narrative: CONSTITUTIONAL: No fever or chills. EYES: No blurring of vision or other visual disturbances lately. ENT: No hoarseness of voice, auditory disturbances or sore throat. CARDIOVASCULAR: As mentioned above. RESPIRATORY: No significant cough. GASTROINTESTINAL: No hematemesis or melena. GENITOURINARY: No dysuria or hematuria. INTEGUMENTARY: No skin rashes or history of skin cancer. NEURO: No transient ischemic attacks or amaurosis. PSYCHIATRIC: No history of psychosis or major depression. HEMATOLOGIC: No bleeding disorders or significant anemia. ENDOCRINE: No history of polyuria or polydipsia. MUSCULOSKELETAL: No recent joint pain or swelling. ALLERGY/IMMUNOLOGY: As mentioned above. Medications/Allergies Home Medications Medication Instructions Recorded Confirmed Last Taken Type pantoprazole 40 mg tablet,delayed 40 mg PO QDAY 10/01/19 04/14/23 07/25/22 10:00 History release antiarthritic combination no.2 900 900 mg PO DAILY 03/30/21 04/14/23 07/25/22 10:00 History mg tablet (glucosamine-chondroitin) enalapril maleate 10 mg tablet 10 mg PO DAILY 03/30/21 04/14/23 07/25/22 10:00 History cyanocobalamin (vitamin B-12) 5,000 mcg PO DAILY 07/13/22 04/14/23 07/25/22 1 0:00 History 5,000 mcg capsule nitroglycerin 0.4 mg sublingual 0.4 mg sublingual Q5M PRN chest 07/13/22 04/14/23 Unknown Rx tablet (Nitrostat) pain #25 tabs saw palmetto 450 mg capsule 450 mg PO DAILY 07/13/22 04/14/23 07/25/22 10:00 History tamsulosin 0.4 mg capsule 0.4 mg PO DAILY PRN Urinary 07/13/22 04/14/23 07/25/22 10:00 History Retention aspirin 81 mg chewable tablet 81 mg PO DAILY #90 tabs 07/27/22 04/14/23 Unknown Rx Niacivamide 500 mg PO BID 08/09/22 04/14/23 Unknown History pravastatin 80 mg tablet 80 mg PO BEDTIME 08/09/22 04/14/23 Unknown History clopidogrel 75 mg tablet 75 mg PO DAILY #90 tabs 01/17/23 04/14/23 Unknown Rx cetirizine 10 mg tablet (Zyrtec) 10 mg PO DAILY Allergy Symptoms 02/16/23 04/14/23 Unknown History Allergies Allergy/AdvReac Type Severity Reaction Status Date / Time Penicillins Allergy Unknown Unknown Verified 04/14/23 08:59 Current Medications Generic Name Dose Route Start Last Admin Trade Name Freq PRN Reason Stop Dose Admin Dextrose/Sodium Chloride 1,000 mls @ 100 mls/hr 04/15/23 07:15 04/15/23 07:20 Dextrose 5%-Sod Chloride 0.45% IV 100 mls/hr .Q10H CAROL Administration PFSH Acute PFSH: Medical History ASHD (arteriosclerotic heart disease) Chest pain COPD (chronic obstructive pulmonary disease) Dyslipidemia High degree atrioventricular block HTN (hypertension) Myocardial infarction Radiculopathy affecting upper extremity Tobacco abuse, in remission Surgical History S/P angioplasty with stent Family History Father , AGE 90 CAD (coronary artery disease) Cancer COLON Mother Stroke Social History Smoking and tobacco status: former smoker Quit status (tobacco): has quit using tobacco Alcohol intake: former Substance/Drug Use: never Household members: spouse Marital status: service: Yes Current occupational status: retired Current gender identity: Male Betsey/Anglican: Mandaen Vitals/I&O/Wt Last Vital Signs Temp 98.1 F 04/15/23 02:20 Pulse 29 L 04/15/23 06:10 Resp 19 H 04/15/23 02:20 BP 140/68 04/15/23 02:20 Pulse Ox 96 04/15/23 06:10 O2 Del Method Room Air 04/14/23 20:00 04/14/23 04/15/23 04/15/23 22:59 06:59 14:59 Output Total 950 / 950 Balance -950 / -950 Weight last 48 hrs Weight 227 lb 9.6 oz Weight 227 lb 9.6 oz Physical Exam Narrative: GENERAL: The patient is alert and oriented times three. Not in any acute distress. HEENT: No significant pallor, icterus or lymphadenopathy.Oral cavity: There are no mucous membrane lesions. NECK: Trachea appears to be central. No masses noted. No JVD or thyromegaly appreciated. RESPIRATORY: Chest is symmetrical. No intercostals muscle retraction or any accessory muscle activation. There is no chest wall tenderness. Breath sounds are heard bilaterally. No rales or rhonchi heard. No evidence of any consolidation. BREASTS: Deferred. HEART: The heart sounds are normal. No S3 or S4. No significant murmurs. No pericardial rub ABDOMEN: No vessel pulsations or distention. No tenderness. No organomegaly appreciated. Bowel sounds are normally heard. : Deferred. RECTAL: Deferred. LYMPHATIC: No lymphadenopathy noted in the neck. EXTREMITIES: No edema or cyanosis. No clubbing. MUSCULOSKELETAL: No acute joint deformities or swelling SKIN: There are no significant rashes or ecchymosis. No signs of skin infection in the chest NEUROPSYCHIATRIC: The patient is alert and oriented x3. Appears to be in a good mood. No tremors or rigidity noted. Data 04/14/23 15:44 04/14/23 15:44 Other Labs: Laboratory Last Values WBC 6.2 10^3/uL (4.0-10.0) 04/14/23 15:44 RBC 5.12 10^6/uL (4.1-5.3) 04/14/23 15:44 Hgb 14.6 g/dL (11.7-16.6) 04/14/23 15:44 Hct 44.6 % (42.0-52.0) 04/14/23 15:44 MCV 87.1 fl (80-94) 04/14/23 15:44 MCH 28.5 pg (28.0-34.0) 04/14/23 15:44 MCHC 32.7 g/dL (30.0-36.0) 04/14/23 15:44 RDW 13.2 % (12.1-15.1) 04/14/23 15:44 Plt Count 199 10^3/cmm (130-400) 04/14/23 15:44 MPV 9.9 fL (7.4-10.4) 04/14/23 15:44 Neut % (Auto) 52.8 % 04/14/23 15:44 Lymph % (Auto) 34.8 % 04/14/23 15:44 [place] % (Auto) 9.2 % 04/14/23 15:44 Eos % (Auto) 2.1 % 04/14/23 15:44 Baso % (Auto) 0.6 % 04/14/23 15:44 Neut # (Auto) 3.28 10^3/uL (1.8-7.7) 04/14/23 15:44 Lymph # (Auto) 2.2 10^3/uL (0.8-4.8) 04/14/23 15:44 [place] # (Auto) 0.6 10^3/uL (0.2-0.9) 04/14/23 15:44 Eos # (Auto) 0.1 10^3/uL (0.0-0.8) 04/14/23 15:44 Baso # (Auto) 0.0 10^3/uL (0.0-0.1) 04/14/23 15:44 Nucleated RBC % (auto) 0 % 04/14/23 15:44 Nucleated RBCs # 0.0 /100WBC 04/14/23 15:44 APTT 29.0 SECONDS (23.9-36.7) 04/14/23 15:44 Sodium 141 mmol/L (136-145) 04/14/23 15:44 Potassium 4.4 mmol/L (3.5-5.1) 04/14/23 15:44 Chloride 104 mmol/L (98-107) 04/14/23 15:44 Carbon Dioxide 26 mmol/L (22-29) 04/14/23 15:44 Anion Gap 15.4 (5-19) 04/14/23 15:44 BUN 16 mg/dL (8-23) 04/14/23 15:44 Creatinine 1.1 mg/dL (0.7-1.2) 04/14/23 15:44 GFR Calculation Not Reportable 04/14/23 15:44 Glucose 79 mg/dL (65-115) 04/14/23 15:44 Calculated Osmolality 292 mOsm/kg (285-295) 04/14/23 15:44 Calcium 9.4 mg/dL (8.5-10.5) 04/14/23 15:44 Other data: Echocardiogram from 04/14/2023 Normal LV size with a borderline low ejection fraction of 71%.? ?Hypokinetic basal inferolateral wall segment segment.Grade I/IV ?diastolic dysfunction (abnormal relaxation filling pattern), ?normal to mildly elevated filling pressures. ?Minimally thickened mitral valve. ?Thickened aortic valve. ?There is no pericardial effusion. ?Compared to the study from 01/11/2019, the wall motion abnormality ?appears to be new EKG. sinus rhythm with a second-degree type II AV block. Heart rate of [address]-T changes Chest x-ray Borderline cardiac silhouette with no lung infiltrates. No acute pathology noted. A&P Assessment and plan (1) High degree atrioventricular block: Patient appears to have second-degree type II and intermittent third-degree AV block with a heart rate in the upper 20s and low 30s. For further management of his condition, he requires a permanent pacemaker implantation. He is currently not on any medications causing bradycardia. No reversible causes are identified. (2) ASHD (arteriosclerotic heart disease): Clinically seems to be stable with no chest pain or specific cardiac symptoms. (3) Dyslipidemia: May continue on the current medications. (4) HTN (hypertension): The blood pressure seems to be staying in the normal range Qualifiers: Hypertension type: essential hypertension Qualified Code(s): I10 - Essential (primary) hypertension (5) COPD (chronic obstructive pulmonary disease): Stable. Qualifiers: COPD type: unspecified COPD Qualified Code(s): J44.9 - Chronic obstructive pulmonary disease, unspecified Plan I discussed with the patient and his about the need for a permanent pacer implantation. The risk and benefits were discussed in detail. The risk of bleeding, hematoma, vascular injury, myocardial perforation, pericardial tamponade pneumothorax, infection, renal failure and other concomitant compl ications were explained in detail. The patient and his understood this well and consented to proceed. He is scheduled for this procedure today. Consult Attestations Medical Necessity Statement: Patient requires continued hospital stay for close monitoring and further management Coding Level of Care Code 16921 Diagnoses High degree atrioventricular block I44.39 ASHD (arteriosclerotic heart disease) I25.10 Dyslipidemia E78.5 HTN (hypertension) I10 Hypertension type: essential hypertension COPD (chronic obstructive pulmonary disease) J44.9 COPD type: unspecified COPD
[2023-04-15 09:33] LABS: Alanine Aminotransferase 38 U/L (0-41); Aspartate Amino Transferase 22 U/L (0-40); Gamma Glutamyl Transferase 37 U/L (8-61); Lactate Dehydrogenase 163 U/L (135-225)
[2023-04-15 10:42] LABS: Thyroid Stimulating Hormone 2.54 uIU/mL (0.27-4.20)
--- NOTE | 2023-04-15 11:18 | PC.PHAR ---
ATTEMPTED MED REC 3 TIMES THIS AM. IS HERE (PHONE NUMBER IS [place]) BUT UNABLE TO MAKE CONTACT WITH HER. OTHER CONTACT IS SON. UNABLE TO MAKE CONTACT WITH HIM, WELL. WILL RETURN TO FLOOR IN AFTERNOON.
--- NOTE | 2023-04-15 14:07 | P.OP_ITS ---
Operative Report Date of procedure: April 15, 2023 Procedure: LOCATION: Cardiac catheterization lab PREOPERATIVE DIAGNOSES: Symptomatic bradycardia/second-degree type II/high degree AV block. POSTOPERATIVE DIAGNOSES: Same. COMPLICATIONS: None. ESTIMATED BLOOD LOSS: None BRIEF HISTORY: 82-year-old white male with history of atherosclerotic heart disease, high blood pressure, dyslipidemia presented with complaints of generalized weakness/dizziness. He was found to be bradycardic with a heart rate in the upper 20s and low 30s. EKG showed second-degree type II AV block. A dual chamber permanent pacemaker implantation was recommended for AV synchrony and symptom relief The procedure was explained to the patient in detail with the risks and benefits. The risks of bleeding, hematoma, vascular injury, infection, pneumothorax, myocardial perforation and other concomitant complications were explained in detail, which the patient understood well and consented to proceed. PROCEDURE DESCRIPTION: The patient was brought to the Cardiac Catheterization Lab. The left and the right side of the neck and the subclavian area were cleaned and draped in a sterile fashion. 1% Xylocaine was used as the local anesthetic agent. [Left] subclavian venogram was performed by injecting 20 milliliters of Omnipaque through the left antecubital vein. A [left] subclavian venous access was obtained using a micropuncture needle system, under venographic guidance. . A two-inch long incision was made 2.0 centimeters below the midclavicular region. By sharp and blunt dissection, a pacemaker pocket was made. A second venous access was obtained using another micropuncture needle sy stem. Over the first guidewire, a 7-[place] venous sheath with dilator was advanced. The venous dilator and the guidewire were taken out. A screw-in ventricular lead was advanced through the venous sheath and was positioned towards the right ventricle. Under fluoroscopic guidance, the ventricular lead was positioned toward the right ventricular apex. Good pacing and sensing thresholds were obtained. The lead was secured to the endocardium by advancing the helix. The stability of the lead was tested by gentle twisting movements and also by asking the patient to take some deep breaths and cough. The venous sheath was peeled off, at this time. The lead was secured to the pectoralis fascia, by suturing with 1-0 Surgilon. Over the second guidewire, another 7- [place] venous sheath with dilator was advanced. The dilator and the guidewire were taken out. Under fluoroscopic guidance, an atrial lead (Medtronic), was advanced and positioned toward the right atrium. The lead was positioned in the right atrial appendage. Goo left Left d pacing and sensing thresholds were obtained. The lead was secured to the endocardium by advancing the helix. Stability of the lead was tested by gentle twisting movements and also by asking the patient to take some deep breaths and cough. The venous sheath was peeled off, at this time. The lead was secured to the pectoralis fascia by suturing with 0-Surgilon. The pacemaker pocket was copiously irrigated with vancomycin solution. Complete hemostasis was achieved. Sponge counts were confirmed. The leads were attached to a Medtronic generator. The leads were positioned behind the generator and the generator was attached to the pectoralis fascia by suturing with 0-Surgilon. The pocket was closed in layers. Skin was approximated using 4-0 Vicryl. IMPLANTED DEVICES: ATRIAL LEAD: Model number: 5076/52 Serial number: [id number] Make: Medtronic VENTRICULAR LEAD: Model number: 5076/58 Serial number: [id number] Make: Medtronic GENERATOR Brand: [place] XT DR MRI Surealan Model number: W1 DR 01 Serial number: [id number] Make: Medtronic IMPLANTATION DATA: With the pacing system analyzer, the R wave sensing was 7.8 millivolts with a lead impedance of 928 ohms and a pacing threshold was 0.5 volts at 0.4 milliseconds. In the atrium, the sensing was 3.0 millivolts with a lead impedance of 524 ohms and a pacing threshold was 0.6 volts at 0.4 milliseconds. Through the device, the R-wave sensing was noted obtained because of the pacer dependency with a lead impedance of 722 and a pacing threshold was 0.5 volts at 0.4 milliseconds. The atrial sensing was 2.6 millivolts with a lead impedance of 439 ohms and a pacing threshold of 0.7 volts at 0.4 milliseconds. The pacemaker was set for DDDR mode with upper rate of 130 and a lower rate of 60. A pressure dressing was applied over the pacemaker site. The patient was transferred to the Medical Floor in stable condition. A chest x-ray was ordered to confirm the lead position and also to rule out any pneumothorax.
--- NOTE | 2023-04-15 15:28 | PC.NURSE ---
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
[2023-04-15] MEDS: ceFAZolin 2,000 MG in sodium chloride 0.9% (plus) 50 ML 100 MG IV ×2 (15:58→23:42)
--- NOTE | 2023-04-15 18:43 | XRR_ITS ---
PROCEDURE INFORMATION: Exam: XR Chest Exam date and time: 04/15/2023 6:56 PM Age: 82 years old Clinical indication: Device placement; Cardiac pacemaker placement or adjustment; Additional info: Post pace maker, please keep all the external leads away from the fov TECHNIQUE: Imaging protocol: Radiologic exam of the chest. Views: 1 view. COMPARISON: CR (CHEST, ) 04/14/2023 6:53 PM FINDINGS: Tubes, catheters and devices: Interval placement of a dual-lead cardiac pacer via left subclavian approach. Lead tips are in the expected locations of the right atrium and right ventricle. Lungs: Interval development of fullness in the pulmonary vasculature suggesting volume overload in the lungs. Pleural spaces: No pleural effusion. No pneumothorax. Heart/Mediastinum: Stable moderate enlargement of the cardiac silhouette. Mediastinal contours are unremarkable. Bones/joints: Unremarkable for age. XR/XR chest 1V portable [id number] IMPRESSION: 1. Interval development of fullness in the pulmonary vasculature suggesting volume overload in the lungs. 2. Interval placement of a dual-lead cardiac pacer via left subclavian approach. Lead tips are in the expected locations of the right atrium and right ventricle. 3. Incidental/nonacute findings are listed in the report.
[2023-04-15] MEDS: lisinopril 20 mg Tablet PO (20:13)
[2023-04-16] MEDS: acetaminophen 325 mg Tablet 650 MG PO (02:16)
--- NOTE | 2023-04-16 05:10 | ECG_ITS ---
[facility] Test Date: 2023-04-16 Pat Name: Ashish Armijo Department: Room: 112 Gender: Male Pnp: : [id number] Requested By: Karolina Lam Order Number: [id number] Reading MD: Chester Keen M.D. Measurements Intervals Echo Rate: 62 P: 119 MI: 208 QRS: -76 QRSD: 180 T: 81 QT: 442 QTc: 449 Interpretive Statements ELECTRONIC ATRIAL PACEMAKER ELECTRONIC VENTRICULAR PACEMAKER ABNORMAL RHYTHM ECG Compared to ECG 04/14/2023 13:24:36 Sinus bradycardia no longer present Intraventricular conduction delay no longer present Myocardial infarct finding no longer present Electronically Signed On 04-16-2023 8:49:13 CDT by Chester Keen M.D. [id number]
[2023-04-16 05:34] VITALS: BP 166/72; PULSE 62; TEMP 36.7; O2SAT 93
[2023-04-16 05:40] VITALS: PULSE 63
[2023-04-16] MEDS: ceFAZolin 2,000 MG in sodium chloride 0.9% (plus) 50 ML 100 MG IV (06:12)
--- NOTE | 2023-04-16 06:43 | PM.DCS ---
Discharge Providers Date of Admission: 04/14/23 14:01 Date of Discharge: April 16, 2023 Attending Provider at Admission: Chester Keen MD Attending Provider at Discharge: Chester Keen MD Primary Care Provider: Angelika Johnson Diagnoses at Discharge Discharge Diagnosis (1) High degree atrioventricular block: Status: Acute (2) ASHD (arteriosclerotic heart disease): Status: Acute (3) Dyslipidemia: Status: Acute (4) HTN (hypertension): Status: Acute Qualifiers: Hypertension type: essential hypertension Qualified Code(s): I10 - Essential (primary) hypertension (5) COPD (chronic obstructive pulmonary disease): Status: Acute Qualifiers: COPD type: unspecified COPD Qualified Code(s): J44.9 - Chronic obstructive pulmonary disease, unspecified Reason for Visit Reason for Visit: 2nd degree heart block Brief History: Patient called the office 2 days ago complaining of fatigue, extreme shortness of breath, lightheadedness, dizziness and presyncope. His heart rate in the office was 30 bpm. He had second-degree AV block type II and rare third-degree AV block. He was admitted to the hospital for elective pacemaker placement. Hospital Course Hospital Course Pacemaker was placed under the left subclavian area. The procedure was uneventful. No complications. Patient has received the appropriate antibiotics. He is stable for discharge. Physical Exam Narrative: GENERAL: In general he is comfortable this morning HEENT: Exam within normal limits. NECK: Supple without jugular vein distention. The carotid upstroke is normal without bruits. BACK: Exam normal. LUNGS: Clear. HEART: Regular rate and rhythm. ABDOMEN: Benign without organomegaly or tenderness. EXTREMITIES: No edema. NEUROLOGIC: Exam normal. SKIN: Unremarkable. The bandage is intact without any bleeding or extreme tenderness. 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 echo complete* [id number] Routine Ultrasound 04/14/23 17:24 Completed Radiology Impressions Chest X-Ray 04/15/23 18:43 IMPRESSION: 1. Interval development of fullness in the pulmonary vasculature suggesting volume overload in the lungs. 2. Interval placement of a dual-lead cardiac pacer via left subclavian approach. Lead tips are in the expected locations of the right atrium and right ventricle. 3. Incidental/nonacute findings are listed in the report. Laboratory Results WBC 6.2 10^3/uL (4.0-10.0) 04/14/23 15:44 RBC 5.12 10^6/uL (4.1-5.3) 04/14/23 15:44 Hgb 14.6 g/dL (11.7-16.6) 04/14/23 15:44 Hct 44.6 % (42.0-52.0) 04/14/23 15:44 MCV 87.1 fl (80-94) 04/14/23 15:44 MCH 28.5 pg (28.0-34.0) 04/14/23 15:44 MCHC 32.7 g/dL (30.0-36.0) 04/14/23 15:44 RDW 13.2 % (12.1-15.1) 04/14/23 15:44 Plt Count 199 10^3/cmm (130-400) 04/14/23 15:44 MPV 9.9 fL (7.4-10.4) 04/14/23 15:44 Neut % (Auto) 52.8 % 04/14/23 15:44 Lymph % (Auto) 34.8 % 04/14/23 15:44 [place] % (Auto) 9.2 % 04/14/23 15:44 Eos % (Auto) 2.1 % 04/14/23:44 Baso % (Auto) 0.6 % 04/14/23 15:44 Neut # (Auto) 3.28 10^3/uL (1.8-7.7) 04/14/23 15:44 Lymph # (Auto) 2.2 10^3/uL (0.8-4.8) 04/14/23 15:44 [place] # (Auto) 0.6 10^3/uL (0.2-0.9) 04/14/23 15:44 Eos # (Auto) 0.1 10^3/uL (0.0-0.8) 04/14/23 15:44 Baso # (Auto) 0.0 10^3/uL (0.0-0.1) 04/14/23 15:44 Nucleated RBC % (auto) 0 % 04/14/23 15:44 Nucleated RBCs # 0.0 /100WBC 04/14/23 15:44 APTT 29.0 SECONDS (23.9-36.7) 04/14/23 15:44 Sodium 141 mmol/L (136-145) 04/14/23 15:44 Potassium 4.4 mmol/L (3.5-5.1) 04/14/23 15:44 Chloride 104 mmol/L (98-107) 04/14/23 15:44 Carbon Dioxide 26 mmol/L (22-29) 04/14/23 15:44 Anion Gap 15.4 (5-19) 04/14/23 15:44 BUN 16 mg/dL (-23) 04/14/23 15:44 Creatinine 1.1 mg/dL (0.7-1.2) 04/14/23 15:44 GFR Calculation Not Reportable 04/14/23 15:44 Glucose 79 mg/dL (65-115) 04/14/23 15:44 Calculated Osmolality 292 mOsm/kg (285-295) 04/14/23 15:44 Calcium 9.4 mg/dL (8.5-10.5) 04/14/23 15:44 GGT 37 U/L (8-61) 04/14/23 15:44 AST 22 U/L (0-40) 04/14/23 15:44 ALT 38 U/L (0-41) 04/14/23 15:44 Lactate Dehydrogenase 163 U/L (135-225) 04/14/23 15:44 TSH 2.54 uIU/mL (0.27-4.20) 04/14/23 15:44 Procedures Performed Permanent pacemaker placement Vitals Last Vital Signs Temp 98.0 F 04/16/23 05:34 Pulse 63 04/16/23 05:40 Resp 16 04/15/23 23:55 BP 166/72 04/16/23 05:34 Pulse Ox 93 04/16/23 05:34 O2 Del Method Room Air 04/15/23 23:55 Discharge Plan Discharge Patient Disposition: Home Condition: Stable Prescriptions: New cephalexin 500 mg capsule 500 mg PO Q6H 5 Days Qty: 20 0RF multivitamin Tablet 1 tab PO DAILY 14 Days Qty: 14 0RF Continued pantoprazole 40 mg tablet,delayed release (DR/EC) 40 mg PO QDAY saw palmetto 450 mg capsule 450 mg PO DAILY enalapril maleate 10 mg tablet 10 mg PO DAILY glucosamine-chondroitin 900 mg tablet 900 mg PO DAILY tamsulosin 0.4 mg capsule 0.4 mg PO DAILY PRN (Reason: Urinary Retention) cyanocobalamin (vitamin B-12) 5,000 mcg capsule 5,000 mcg PO DAILY nitroglycerin [Nitrostat] 0.4 mg tablet, sublingual 0.4 mg SUBLINGUAL Q5M PRN (Reason: chest pain) Qty: 25 6RF cetirizine [Zyrtec] 10 mg tablet 10 mg PO DAILY clopidogrel 75 mg tablet 75 mg PO DAILY Qty: 90 3RF prednisolone acetate 1 % drops,suspension 1 drp ophthalmic (eye) QID mupirocin 2 % ointment 1 applic TOPICAL TID aspirin 81 mg tablet,chewable 81 mg PO DAILY Qty: 90 1RF pravastatin 80 mg tablet 80 mg PO BEDTIME Niacivamide 500 mg PO BID Discharge Orders: Discharge Order (Routine); Ordered 04/16/23 Ordered By: Chester Keen Referrals: Chester Keen MD [Physician] - 2 months Prerna Shoemaker FNP [Nurse Practitioner] - 7-10 days (For pacemaker check and wound check.) Discharge Diet: Advance as tolerated Discharge Activity: Limit activity as instructed Patient Instructions: Pacemaker (DC), Opioid Safety, Post Pacemaker - [place] Activity Restrictions/Additional Instructions: Limit the movements of the left shoulder to 45 degrees Avoid any weightbearing on the left elbow Keep the covered arm dressing on until you come to the clinic next week Appointment at the [facility] next to see the nurse practitioner for a wound check and pacemaker check Take the antibiotics as prescribed along with a multivitamin Discharge Attestations Time Spent in Discharge Care*: less than 30 min Quality Metrics Clinical Quality Measures [ No reported AMI, CVA or VTE this stay] Coding Level of Care Code Acute Code for Chg Fwd Diagnoses High degree atrioventricular block I44.39 ASHD (arteriosclerotic heart disease) I25.10 Dyslipidemia E78.5 HTN (hypertension) I10 Hypertension type: essential hypertension COPD (chronic obstructive pulmonary disease) J44.9 COPD type: unspecified COPD
[2023-04-16] MEDS: aspirin 81 mg Chew Tablet PO (08:53)
[2023-04-16] MEDS: lisinopril 20 mg Tablet PO (08:54)
[2023-04-16 09:52] VITALS: BP 166/72
[2023-04-16 09:55] VITALS: BP 166/72; PULSE 66; RESP 18; O2SAT 96
--- NOTE | 2023-04-16 09:57 | PC.NURSE ---
Discharge Note Patient discharged to home via POV accompanied by spouse. Discharge instructions reviewed with patient and/or lifeline representatives. Mobile pharmacy medications and/or prescriptions provided. Belongings/home medications returned.
--- NOTE | 2023-04-16 10:28 | PC.OT ---
OT evaluation received. Attempted evaluation though patient had already discharged. Nickolas Mansfield, OTR/L
== END 2023-04-16 09:30 | disposition home or self-care (01) | DRG 244 ==
PROVIDERS: Internal Medicine Cardiovascular Disease; Admitting Provider Internal Medicine Cardiovascular Disease; PCP Physician Assistant; Visit Provider Internal Medicine Cardiovascular Disease
PROC: 0JH606Z Insertion of Pacemaker, Dual Chamber into Chest Subcutaneous Tissue and Fascia, Open Approach (ICD-10-PCS; principal; 2023-04-15 07:00)
DX: I44.1 Atrioventricular block, second degree (principal); I25.10 Atherosclerotic heart disease of native coronary artery without angina pectoris; Z95.5 Presence of coronary angioplasty implant and graft; E78.5 Hyperlipidemia, unspecified; I10 Essential (primary) hypertension; J44.9 Chronic obstructive pulmonary disease, unspecified; Z79.02 Long term (current) use of antithrombotics/antiplatelets; Z79.82 Long term (current) use of aspirin; I25.2 Old myocardial infarction; Z87.891 Personal history of nicotine dependence
CPT/HCPCS: 33208; 33210; 36415; 71045; 80048; 82977; 83615; 84443; 84450; 84460; 85025; 85730; 93005; 93306; 96367; 99152; 99153; 99213; A4216; C1769; C1779; C1786; C1894; C1898; J0690; J2250; J3010; J3370; J7030; J7050; J7799; Q9967

== ENCOUNTER → 2023-04-25 09:57 | Outpatient (BNVA) | payer OTHER, SELFPAY | PROVIDERS: PCP Physician Assistant; Visit Provider Nurse Practitioner Family | DX: Z95.0 Presence of cardiac pacemaker (principal); Z87.891 Personal history of nicotine dependence | CPT/HCPCS: 99213 ==

== ENCOUNTER → 2023-05-25 16:39 | Outpatient (BNVA) | payer OTHER, SELFPAY | PROVIDERS: PCP Physician Assistant; Visit Provider Internal Medicine Cardiovascular Disease | DX: R07.9 Chest pain, unspecified (principal); I10 Essential (primary) hypertension; Z95.0 Presence of cardiac pacemaker; I25.119 Atherosclerotic heart disease of native coronary artery with unspecified angina pectoris; E78.5 Hyperlipidemia, unspecified; J44.9 Chronic obstructive pulmonary disease, unspecified; Z87.891 Personal history of nicotine dependence; R94.31 Abnormal electrocardiogram [ECG] [EKG] | CPT/HCPCS: 93005; 99214 ==

== ENCOUNTER 2023-05-26 10:58 | Outpatient (CLI) | payer OTHER, SELFPAY ==
[2023-05-26 12:09] LABS: Basophils # 0.1 10^3/uL (0.0-0.1); Basophils % 0.8 %; Eosinophils # 0.1 10^3/uL (0.0-0.8); Eosinophils % 2.1 %; Lymphocytes # 2.4 10^3/uL (0.8-4.8); Lymphocytes % 36.6 %; Mean Corpuscular HGB Conc 34.5 g/dL (30-55); Mean Corpuscular Volume 84.2 fl (82-101); Mean Platelet Volume 8.7 fL (7.4-10.4); Monocytes # 0.7 10^3/uL (0.2-0.9); Monocytes % 11.1 %; Neutrophils # 3.24 10^3/uL (1.8-7.7); Neutrophils % 49.1 %; Nucleated Red Blood Cells % 0 %; Platelet Count 231 10^3/cmm (157-399); Red Blood Count 5.58 10^6/uL (3.85-5.65); Red Cell Distribution Width 12.5 % (12.1-15.1); White Blood Count 6.59 10^3/uL (3.29-11.43)
[2023-05-26 12:19] LABS: Prothrombin Time (Patient) 13.5 Seconds (12.0-15.1)
[2023-05-26 12:25] LABS: Anion Gap 15.3 (5-19); Blood Urea Nitrogen 12 mg/dL (8-23); Calcium 9.4 mg/dL (8.5-10.5); Carbon Dioxide 25 mmol/L (22-29); Chloride 100 mmol/L (98-107); Glucose 93 mg/dL (65-115); Osmolality Calculated 281 mOsm/kg (285-295); Potassium 4.3 mmol/L (3.5-5.1); Sodium 136 mmol/L (136-145)
== END 2023-05-26 10:59 | disposition home or self-care (01) ==
PROVIDERS: PCP Physician Assistant; Visit Provider Internal Medicine Cardiovascular Disease
DX: I25.119 Atherosclerotic heart disease of native coronary artery with unspecified angina pectoris (principal)
CPT/HCPCS: 36415; 80048; 85025; 85610; 86850; 86900

== ENCOUNTER 2023-05-31 07:24 | Outpatient (CLI) | payer OTHER, SELFPAY ==
[2023-05-31] VITALS (38 sets, daily range): BP systolic 107–153; BP diastolic 56–103; PULSE 60–70; RESP 9–25; TEMP 36.7; O2SAT 91–97; BMI 29.2
--- NOTE | 2023-05-31 07:30 | XACV_ITS ---
Ht: 183 cm Wt: 98 kg BSA: 2.25 m2 Gender: Male : 1940 Any Known Allergies: Penicillins Exam Priority: Routine Procedure(s): Procedure Description: Diagnostic procedure Procedure Description: PCI procedure Procedure Description: Left Heart Catheterization Procedure Description: Coronary IVUS Procedure Description: Drug Eluting Coronary Stent Procedure Description: PTCA Procedure Description: Miscellaneous Procedure Description: ACT Procedure Description: Coronary Angiography Genaro SIERRA; Diagnostic Cath Status: Urgent Diagnostic Findings * The left main is a short medium caliber vessel with no significant stenotic lesions. * The left anterior descending artery is an elongated vessel which appears to wrap around the LV apex minimally. The proximal to the mid LAD was found to have extensive stenting. There was a high-grade in-stent stenosis of around 80% in the mid LAD. Just distal to the stented segment, there was 60 to 70% bret stent stenosis. The first diagonal vessel appears to be a relatively small caliber vessel with severe diffuse disease proximally with a high-grade ostial stenosis, possibly a jailed lesion. The distal left and descending artery was found to have around 50% segmental narrowing. * The left circumflex artery is a medium caliber vessel which was found to have a 30 to 40% diffuse irregular narrowing proximally. The first obtuse marginal branch is a relatively large vessel with multiple side branches. One of the branches were found to have around 60% narrowing at the ostium. * The right coronary artery is a medium caliber dominant vessel which was found to have a long stented area in the proximal to the mid segment. The stent was found to be patent. There was an area of in-stent stenosis of around 50% proximally. The PLV branch of the artery was found to have around 50% n stenosis distally. The distal artery appears to be bifurcating. At the bifurcation, there was 70 to 90% stenosis. The PDA branch was found to have mild diffuse intimal irregularities with no significant stenotic lesions. PCI Status: Urgent PCI Indication: Other Interventional Findings * Mid Left Anterior Descendin-80% stenosis treated with a MDT NC EUPHORA RX 3.30Q75RT BALLOON, AB TREK 2.50X12 RX BALLOON, MDT R ARGENIS 3.5X30 ETHAN, and MDT NC EUPHORA RX 3.35C88IX BALLOON. 0% residual stenosis, STEVEN: 3 flow. * Procedure detail: We engaged left main artery with XB 3.5 guide catheter. IV heparin was administered to maintain anticoagulation. 0.014 run-through guidewire was used to cross the stenosis and was put in distal vessel. IVUS was performed that showed jonah-atherosclerosis within prior stent. We decided to put new stent. We predilated the ISR segment with a 3.75 x 20 mm NC balloon at high pressure. This was followed by predilation of de germán lesion after old stent with 2.5 x 12 mm semicompliant balloon. We then placed 3.5 x 30 mm resolute [place] drug-eluting stent covering both severely stenotic segment of prior stent and the de germán lesion. The stent was postdilated with 3.75 x 20 mm NC balloon. At this time final angiogram was performed that showed excellent stent expansion, no residual stenosis and STEVEN-3 flow. Guidewire and guide catheter were removed. Patient left the Boardinghouse Keeper in stable condition.. Conclusions 1. This 82-year-old white male with history of atherosclerotic heart disease, status post multiple PCI's, presenting with increasing episodes of chest pain, limiting his activities. His symptoms were suggestive of accelerated angina. For further evaluation of his symptoms, a cardiac catheterization was recommended. Patient underwent left heart catheterization with left and right coronary angiogram today. The findings are as follows.. 2. His symptoms have suggesting an. 3. 1. Short left main with no significant lesions. 2. High-grade in-stent stenosis in the mid left and descending artery. 60 to 70% PD bret stent stenosis in the mid LAD. Moderate segmental narrowing in the distal LAD. 3. Mild to moderate disease in the circumflex artery.4. Patent proximal to mid stented segment. High-grade lesion at the distal bifurcation of the PLV branch. LVEDP of 20 mmHg. 4. Based on the above angiographic findings, it was thought to be appropriate to consider PCI of the LAD lesions. I reviewed and discussed the catheterization data with Dr. Ring. Dr. Ring concurred with this plan and took over further management this patient. The PLV lesion, considering the size of the artery, was thought to be appropriate to be treated medically, unless he continues to have symptoms even after fixing the LAD. 5. Successful revascularization of LAD with 1 stent. 6. Mid Left Anterior Descending was treated with a Balloon, Balloon, Drug Eluting Stent, and Balloon. Recommendations * Dual antiplatelet therapy with aspirin and plavix for at least 1 year. * High intensity statin therapy. * Outpatient cardiology follow up in 4 weeks. Interventional RX Recommendation: PCI w/o planned CABG Diagnostic RX Recommendation: PCI w/o planned CABG Anticoagulation: Heparin LV EDP: 20 mmHg Left Ventriculography Findings: * The LV gram was not performed because of the concern of for dye overload. The LVEDP was 20 mmHg. Pressures Phase:Rest AO : 94 / 70 ( 78 ) @ 9:36:00 AM 100 / 62 ( 76 ) @ 9:41:00 AM 102 / 63 ( 77 ) @ 9:41:00 AM 95 / 66 ( 80 ) @ 10:02:00 AM 99 / 68 ( 82 ) @ 10:12:00 AM 111 / 72 ( 88 ) @ 10:21:00 AM 106 / 72 ( 87 ) @ 10:22:00 AM 111 / 76 ( 92 ) @ 10:26:00 AM LV : 104 / 6 / 20 @ 9:41:00 AM 104 / @ 9:41:00 AM Valves Phase:DefaultPhase AV : 3.0 @ 9:48:20 AM 3.0 @ 9:48:20 AM AV Mean Gradient: 15.0 @ 9:48:20 AM Clinical Evaluation EBL: 5mL-10mL Procedural Details Admit Source: Out Patient. Pre-Procedure Time Out. Identified patient by full name and date of as verbalized by the patient/guarantor. Does the consent match the physician's order: Yes. Accurate & Complete Informed Consent: Yes. Inpatient/Outpatient History & Physical on Chart: Yes. If H&P is completed, is and addenduem needed: No; If yes, is the addendum complete: N/A. Visualize and Verify Site with Patient/Guarantor: N/A. Relevant Radiology Images available: Yes. Pre-op teaching completed and patient verbalized understanding. The risks, benefits, and alternatives of sedation and/or procedure were discussed by physician. The patient agrees to continue. Procedure started. [facility] Clinical Fraility Score: 4: Vulnerable. Boardinghouse Keeper Indications: Worsening Angina. Correct patient, site and procedure confirmed by cath team. PERRLA. 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 Lungs clear x 5 lobes. IV Site on Arrival: 20 gauge in the left anticubital. IV Fluids: 0.9% NaCl at KVO. 0 mL infused prior to builder's labourer. Pre Procedural Pulses: bilateral posterior tibial was Doppled. Pre Procedural Pulses: bilateral dorsalis pedis was 1+. Pre Procedural Pulses: bilateral radial was 3+. Oxygen started at 2liters/min via nasal canula. right groin was prepped with chloroprep then draped in the usual sterile fashion. right radial was prepped with chloroprep then draped in the usual sterile fashion. Baseline sample Acquired. HR: 78 BPM. Physician arrived. Physician scrubbed in. Immediate Pre-Procedure Time Out. Correct Patient: Yes; Correct Procedure: Yes; Correct Site: Yes; Correct Patient Position: Yes; Correct Supplies: Yes; Dried Flammable Prep: Yes; Blood Products Available: N/A;. Lidocaine 1% infiltrated to the right radial. Arterial access obtained. A 5 [place] islander Yung catheter in over the exchange wire. Multiple views taken of left coronary artery. EDP Sample taken: LV 104/6,20; HR: 60 BPM; SpO2: 94%. Pullback taken: LV 104/5,19; AO 100/62(76); Mean: 15mmHg, Peak to Peak: 3mmHg, SEP: 7sec/min; HR: 60 BPM; SpO2: 94%. Catheter removed over the exchange wire. A 5 [place] islander JR4 catheter in over exchange wire. Multiple views taken of right coronary artery. Catheter removed over the exchange wire. Physician scrubbed out. Physician review of cine films. Dr. Ring called to review films. Side port of sheath attached to Normal Saline flush at KVO to maintain patency. Dr. Ring scrubbed in to perform intervention. Patient's family updated. 6 tur[place] islander XB 3.5 guide catheter was inserted over the wire. Runthrough guidewire was advanced through the guide catheter to lesion in the mid LAD. Guidewire advanced across lesion. IVUS catheter in over runthrough wire. Inflation number : 2 A MDT NC EUPHORA RX 3.39J06VS BALLOON was prepped and advanced across the Mid LAD , then inflated to 20 GARY for 0:08 seconds. Balloon out. Balloon inserted to lesion in the mid LAD. Inflation number : 3 A AB TREK 2.50X12 RX BALLOON was prepped and advanced across the Mid LAD , then inflated to 8 GARY for 0:24 seconds. Balloon out. Stent inserted to lesion in the mid LAD. Inflation Number : 4 A JOSE R ARGENIS 3.5X30 ETHAN -Lot Number# was prepped and advanced across the Mid LAD. The stent was deployed at 12 GARY for 0:21 seconds. Inflation number: 5 The stent balloon was then re-inflated across the Mid LAD to 12 GARY for 0:06 seconds. Results checked. ACT drawn. Results 360 seconds. Therapeutic limits - pre-heparin administration 90-150 seconds and monitoring heparin during a vascular procedure >250 seconds. Balloon inserted to lesion in the mid LAD. Inflation number : 6 A MDT NC EUPHORA RX 3.97T51CH BALLOON was prepped and advanced across the Mid LAD , then inflated to 12 GARY for 0:24 seconds. Inflation number: 7 The MDT NC EUPHORA RX 3.77D74FT BALLOON was reinflated across the Mid LAD, to 20 GARY for 0:13 seconds. Inflation number: 8 The MDT NC EUPHORA RX 3.85L68OC BALLOON was reinflated across the Mid LAD, to 20 GARY for 0:19 seconds. Balloon out. Results checked. IVUS in over runthrough. IVUS catheter out. Wire out. Results checked. Guide catheter out. Wire out. A TR Band was successful obtaining hemostatsis at the Right Radial artery insertion site. Post Procedure: Pulses reassessed and unchanged. PERRLA. 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 Medication's Wasted: Nitro = 49.8 mg. Medication's Wasted: Other = Fentanyl 50 mcg. Total IV fluids: 320 mL. Post-op diagnosis: . Estimated blood loss: 5mL-10mL. Responsiveness - Normal response to verbal stimuli; alert and oriented, PERRLA. Airway - Unaffected, no intervention required; spontaneous ventilation. Circulation: W/N/L, pulses unchanged. Nausea/Vomiting: No. Procedure completed. Patient transferred by wheelchair to CPRU. Inflation number: 1 The MDT NC EUPHORA RX 3.87G69PL BALLOON was reinflated across the Mid LAD, to 12 GARY for 0:20 seconds. Vital chart was stopped. Access Site Site: Right Radial artery Sheath Size: 6 Fr Hemostasis Method: TR Band Hemostasis Success: Successful Procedure Medications Start: 8:26 AM Stop: 8:26 AM Medication: Versed Amount: 1 mg Route: I.V. Start: 8:26 AM Stop: 8:26 AM Medication: Fentanyl Amount: 50 mcg Route: I.V. Start: 8:31 AM Stop: 8:31 AM Medication: Nitrogylcerin Amount: 200 mcg Route: I.A. Start: 8:31 AM Stop: 8:31 AM Medication: Verapamil Amount: 5 mg Route: I.A. Start: 8:32 AM Stop: 8:32 AM Medication: 0.9% Saline Amount: 250 ml Route: I.V. bolus Start: 8:33 AM Stop: 8:33 AM Medication: Heparin Amount: 5000 units Route: I.V. Start: 9:17 AM Stop: 9:17 AM Medication: Heparin Amount: 5000 units Route: I.V. Start: 9:20 AM Stop: 9:20 AM Medication: Heparin Amount: 1000 units Route: I.V. Start: 9:22 AM Stop: 9:22 AM Medication: Versed Amount: 1 mg Route: I.V. Start: 9:29 AM Stop: 9:29 AM Medication: Fentanyl Amount: 50 mcg Route: I.V. Start: 9:29 AM Stop: 9:29 AM Medication: Plavix Amount: 300 mg Route: P.O. I, the attending physician, have reviewed and verified all procedure medications. Yes, all medications given per verbal order History/Risk Factors Hypertension: Yes Dyslipidemia: Yes Peripheral Arterial Disease (PAD): No Myocardial Infarction (DE): Yes Obesity: No Tobacco Use: Former Prior Interventions PCI: Yes CABG: No Valve Surgery: No Date of PCI: 01/19/2012 Report Signatures Interventional Workflow Finalized by Amilcar Ring MD on 06/04/2023 11:08 AM Diagnostic Workflow Finalized by Dr Karolina Lam MD [facility] on 05/31/2023 11:21 AM
[2023-05-31] MEDS: diphenhydrAMINE 50 mg Capsule PO (07:40)
--- NOTE | 2023-05-31 07:55 | W.PM.OPSUD ---
Surgery/Procedure H&P Update DATE OF PROCEDURE: May 31, 2023 DATE H&P PERFORMED: 05/25/23 H&P UPDATE INFORMATION: I have reviewed H&P completed within last 30 days, I have examined patient prior to procedure and No changes to prior documentation PREOP DIAGNOSIS: ASHD PRIMARY INDICATION FOR PROCEDURE: unstable angina/ previous PCI PLANNED PROCEDURE: Operation Date: 05/31/23 08:30 Proposed Procedures p [facility] [address]1990,I25.119(Left) - Karolina Lam MD PATIENT REASSESSED PRIOR TO SEDATION, WITH NO CHANGE NOTED: Yes PHYSICAL EXAM: alert, oriented x 3, clear to auscultation bilaterally and regular rate & rhythm AIRWAY EVAL/ANESTHESIA PLAN: normal airway, see other exam findings, ASA III, Monitored Anesthesia, Local Anesthesia, Risks, benefits & alternatives of sedation and/or procedure discussed and Patient agrees to continue as planned
--- NOTE | 2023-05-31 09:41 | ECG_ITS ---
[facility] Test Date: 2023-05-31 Pat Name: Ashish Armijo Department: Room: Gender: Male Physician Office Assistant: : 1940 Requested By: Amilcar Ring Order Number: [id number] Kimberly MD: Karolina Lam M.D. Measurements Intervals Accident Rate: 62 P: 71 SD: 177 QRS: -78 QRSD: 213 T: 77 QT: 468 QTc: 477 Interpretive Statements ELECTRONIC ATRIAL PACEMAKER ELECTRONIC VENTRICULAR PACEMAKER ABNORMAL RHYTHM ECG Compared to ECG 05/25/2023 16:50:10 No significant changes Electronically Signed On 05-31-2023 21:14:19 CDT by Karolina Lam M.D. [email or web address]
--- NOTE | 2023-05-31 09:46 | PC.NURSE ---
Post cath chest pain reports 10/15. Dr. Ring notified and received verbal order for EKG.
--- NOTE | 2023-05-31 10:00 | PC.NURSE ---
TR BAND/Hematoma Nurse called into room by , reported TR band came over over site. Nurse observed large hematoma and held pressure. 2nd nurse called to room to help for applying TR band. TR band reapplied with 20ml air. Large bruising noted. Small hematoma above TR band, hematoma expressed and remaining marked. Radial pulse palpable. Dr. Ring notified.
[2023-05-31] MEDS: fentaNYL 50 mcg/mL INJ 2mL 25 MCG IVP (10:20)
[2023-05-31] MEDS: nitroglycerin 0.4 mg sublingual Tablet SUBLINGUAL (10:20)
--- NOTE | 2023-05-31 10:47 | PC.NURSE ---
Addendum entered by Nita Ogden RN 05/31/23 10:48: 75 mcg Fentanyl wasted with Jesus Zhang RN Original Note: 75mcg Fentanyl wasted . Whitnessed by Moses Ogden RN.
--- NOTE | 2023-05-31 10:52 | PC.NURSE ---
Patient cames from maintenance shop laborer via a bed but walked to CSU bed. He has a right radial TR-band. Pulses are felt. In bedside report from maintenance shop laborer nurse said that TR-band came off in their recovery and a hematoma formed about the size of a golf ball. TR-band was replaced and a 2nd TR-band was placed above due to the hematoma. He was also given a nitro and an ECG was done due to chest pain in recovery in maintenance shop laborer. Nurse said provider was notified.
[2023-05-31] MEDS: pantoprazole DR 40 mg Tablet PO (11:26)
[2023-05-31] MEDS: aspirin 81 mg Chew Tablet PO (11:26)
[2023-05-31] MEDS: clopidogrel 75 mg Tablet PO (11:26)
[2023-05-31] MEDS: metoprolol tartrate 25 mg Tablet PO ×2 (11:27→17:48)
[2023-05-31] MEDS: lisinopril 20 mg Tablet PO (11:27)
[2023-05-31] MEDS: cetirizine 10 mg Tablet PO (11:27)
[2023-05-31] MEDS: prenatal vitamin Capsule 1 CAP PO (11:27)
--- NOTE | 2023-05-31 18:31 | PC.NURSE ---
Patient comes to CSU from molder labels with 2 TR-bands on right wrist. 1ml of air is removed at 1253. 1ml of air is removed from both at 1330. 1ml of air is removed from both at 1425. 1ml of air is removed from both at 1505. 1ml of air is removed at 1518. 2nd TR-band is removed at 1655. 2ml's of air is removed at 1518. 2 mls's of air is removed at 1625. 2ml's of air is removed 1655. 2ml's of air is removed 1805. 2ml's of air is removed at 1815. TR-band is removed at 1830. Hematoma is noted. A 2x2 and tegaderm is applied.
[2023-05-31] MEDS: atorvastatin 40 mg Tablet 20 MG PO (21:52)
[2023-06-01 05:50] VITALS: BP 151/85; PULSE 61; RESP 14; TEMP 36.6; O2SAT 91
[2023-06-01 07:43] VITALS: BP 134/96; PULSE 90; RESP 17; TEMP 36.6; O2SAT 92
[2023-06-01] MEDS: aspirin 81 mg Chew Tablet PO (08:09)
[2023-06-01] MEDS: cetirizine 10 mg Tablet PO (08:09)
[2023-06-01] MEDS: prenatal vitamin Capsule 1 CAP PO (08:09)
[2023-06-01] MEDS: pantoprazole DR 40 mg Tablet PO (08:09)
[2023-06-01] MEDS: clopidogrel 75 mg Tablet PO (08:09)
[2023-06-01] MEDS: lisinopril 20 mg Tablet PO (08:09)
[2023-06-01] MEDS: metoprolol tartrate 25 mg Tablet PO (08:09)
[2023-06-01] MEDS: mupirocin oint 22 gm 1 APPLIC TOPICAL (08:10)
[2023-06-01 11:40] VITALS: BP 132/65; PULSE 66; RESP 18; TEMP 36.7; O2SAT 93
--- NOTE | 2023-06-01 12:31 | PM.PN ---
Subjective Subjective: Patient had a cardiac visit yesterday. He was found to have a high-grade lesion of the mid LAD. He underwent PCI of this lesion. He has been stable with no recurrence of chest pain. Has not had any bleeding complications on the arterial puncture site. Vital signs remained stable. Medications: Medication Review Details: Current Medications Aspirin (Aspirin 81 Mg Chew Tablet) 81 mg PO DAILY [facility] Last Admin: 06/01/23 08:09 Dose: 81 mg Atorvastatin Calcium (Atorvastatin 40 Mg Tablet) 20 mg PO BEDTIME [facility] Last Admin: 05/31/23 21:52 Dose: 20 mg Cetirizine HCl (Cetirizine 10 Mg Tablet) 10 mg PO DAILY [facility] Last Admin: 06/01/23 08:09 Dose: 10 mg Clopidogrel Bisulfate (Clopidogrel 75 Mg Tablet) 75 mg PO DAILY [facility] Last Admin: 06/01/23 08:09 Dose: 75 mg Lisinopril (Lisinopril 20 Mg Tablet) 20 mg PO DAILY [facility] Last Admin: 06/01/23 08:09 Dose: 20 mg Metoprolol Tartrate (Metoprolol Tartrate 25 Mg Tablet) 25 mg PO BID [facility] Last Admin: 06/01/23 08:09 Dose: 25 mg Mupirocin (Mupirocin Oint 22 Gm) 1 applic TOPICAL TID [facility] Last Admin: 06/01/23 08:10 Dose: 1 applic Nitroglycerin (Nitroglycerin 0.4 Mg Sublingual Tablet) 0.4 mg SUBLINGUAL Q5M PRN PRN Reason: chest pain Last Admin: 05/31/23 10:20 Dose: 0.4 mg Pantoprazole Sodium (Pantoprazole Dr 40 Mg Tablet) 40 mg PO DAILY [facility] Last Admin: 06/01/23 08:09 Dose: 40 mg Prednisolone Acetate (Prednisolone 1% Op Susp 5 Ml Btl) 1 drop EYEAFF QID [facility] Last Admin: 06/01/23 08:20 Dose: Not Given Multivit/Folic Acid/Iron ( Vitamin Capsule) 1 cap PO DAILY [facility] Last Admin: 06/01/23 08:09 Dose: 1 cap Tamsulosin HCl (Tamsulosin 0.4 Mg Capsule) 0.4 mg PO DAILY PRN PRN Reason: Urinary Retention Vitals/I&O/Wt Last Vital Signs Temp 98.0 F 06/01/23 11:40 Pulse 66 06/01/23 11:40 Resp 18 06/01/23 11:40 BP 132/65 06/01/23 11:40 Pulse Ox 93 06/01/23 11:40 O2 Del Method Room Air 06/01/23 11:40 05/31/23 06/01/23 06/01/23 22:59 06:59 14:59 Intake Total 120 / 240 660 / 660 Output Total 200 / 200 800 / 1000 490 / 490 Balance -80 / 40 -800 / -760 170 / 170 Weight last 48 hrs Weight 216 lb Weight 216 lb Physical Exam Narrative: GENERAL: The patient is alert and oriented times three. Not in any acute distress. HEENT: No significant pallor, icterus or lymphadenopathy.Oral cavity: There are no mucous membrane lesions. NECK: Trachea appears to be central. No masses noted. No JVD or thyromegaly appreciated. RESPIRATORY: Chest is symmetrical. No intercostals muscle retraction or any accessory muscle activation. There is no chest wall tenderness. Breath sounds are heard bilaterally. No rales or rhonchi heard. No evidence of any consolidation. BREASTS: Deferred. HEART: The heart sounds are normal. No S3 or S4. Short systolic murmur at the base of the heart. No diastolic murmurs no pericardial rub ABDOMEN: No vessel pulsations or distention. No tenderness. No organomegaly appreciated. Bowel sounds are normally heard. : Deferred. RECTAL: Deferred. LYMPHATIC: No lymphadenopathy noted in the neck. EXTREMITIES: No edema or cyanosis. No clubbing. MUSCULOSKELETAL: No acute joint deformities or swelling SKIN: There are no significant rashes or ecchymosis NEUROPSYCHIATRIC: The patient is alert and oriented x3. Appears to be in a good mood. No tremors or rigidity noted. A&P Assessment and plan (1) Atherosclerotic heart disease [place] coronary artery w/angina pectoris: Patient status postcardiac catheterization, status post PCI of the mid LAD lesion, currently remaining stable. We will continue on the current medications. Since he is remaining stable with no recurrence of chest pain, will be discharged home today. (2) Pacemaker: The pacemaker function was found to be appropriate. Continue on the current monitoring schedule. (3) Dyslipidemia: We will continue on the current medications and follow-up evaluations. (4) HTN (hypertension): The blood pressure seems to be in the normal range. May continue on the current medications. Qualifiers: Hypertension type: essential hypertension Qualified Code(s): I10 - Essential (primary) hypertension Plan If the patient continues remain stable, will be discharged home today. Will be seen in the clinic next week by the nurse practitioner. I will see him in the office in a month. Attestations Medical Necessity Statement*: Discharge home today. Coding Level of Care Code 74264 Diagnoses Atherosclerotic heart disease [place] coronary artery w/angina pectoris I25.119 Pacemaker Z95.0 Dyslipidemia E78.5 HTN (hypertension) I10 Hypertension type: essential hypertension
--- NOTE | 2023-06-01 14:09 | PC.NURSE ---
Discharge Note Patient discharged to [home] via [ambulation] accompanied by [spouse]. Discharge instructions reviewed with patient and/or manufacturers representative. Mobile pharmacy medications and/or prescriptions provided. Belongings/home medications returned.
== END 2023-06-01 13:20 | disposition home or self-care (01) ==
LOC: CCL 07:25 → CSU 11:06
PROVIDERS: Internal Medicine; PCP Physician Assistant; Visit Provider Internal Medicine Cardiovascular Disease
DX: I25.119 Atherosclerotic heart disease of native coronary artery with unspecified angina pectoris (principal); Z95.0 Presence of cardiac pacemaker; E78.5 Hyperlipidemia, unspecified; I10 Essential (primary) hypertension; Z79.82 Long term (current) use of aspirin; Z87.891 Personal history of nicotine dependence; J44.9 Chronic obstructive pulmonary disease, unspecified; I25.2 Old myocardial infarction
CPT/HCPCS: 36415; 85347; 92978; 93005; 93458; 96365; 96367; 99152; 99153; C1725; C1753; C1769; C1874; C1887; C1894; C9600; J1644; J2250; J3010; J3490; J7030; Q0163; Q9967

== ENCOUNTER → 2023-06-13 09:23 | Outpatient (BNVA) | payer OTHER, SELFPAY | PROVIDERS: PCP Physician Assistant; Visit Provider Nurse Practitioner Family | DX: I25.119 Atherosclerotic heart disease of native coronary artery with unspecified angina pectoris (principal); Z87.891 Personal history of nicotine dependence; Z95.0 Presence of cardiac pacemaker; I10 Essential (primary) hypertension | CPT/HCPCS: 36415; 80048; 99214 ==

== ENCOUNTER 2023-06-16 09:23 | Outpatient (CLI) | payer MEDICARE, SELFPAY ==
--- NOTE | 2023-06-16 09:33 | USCV_ITS ---
Zofia Ashish Age: 82 Gender: M : 1940 Exam Date: 06/16/2023 09:40 Ordering Phys: Chava Johnson MD Technologist: Edgard Arenas Exam Location: [facility] [place] Indication: intermittent claudication RIGHT LEFT Brachial 115.00 mmHg Brachial 120.00 mmHg Pressure (mmHg) Waveform Pressure (mmHg) Waveform 94.00 DEICER REPAIRER PNEUMATIC 119.00 79.00 DPA 92.00 0.78 Ankle/Brachial Index 0.99 104.00 Pre-Exercise Toe Pressure 106.00 0.87 Pre-Exercise Toe/Brachial Index 0.88 FINDINGS Resting JOSUÉ of 0.78 on the right and 0.99 on the left Resting TBI of 0.87 on the right and 0.88 on the left CONCLUSIONS 1. Abnormal resting JOSUÉ, suggestive of moderate peripheral artery disease on the right side. The normal resting TBI could be related to focal arterial sclerosis 2. Normal resting JOSUÉ and TBI on the left side, suggesting no significant arterial occlusion No similar previous studies are available for comparison Dr Kraolina Lam MD [facility] (Electronically Signed) Final Date: 17 June 2023 09:58 S
== END 2023-06-16 09:24 | disposition home or self-care (01) ==
PROVIDERS: PCP Physician Assistant; Visit Provider Family Medicine
DX: I73.9 Peripheral vascular disease, unspecified (principal)
CPT/HCPCS: 93922

== ENCOUNTER 2023-08-11 09:29 | Outpatient (CLI) | payer OTHER, SELFPAY ==
--- NOTE | 2023-08-11 | ECG_ITS ---
[facility] Test Date: 2023-08-11 Pat Name: Ashish Armijo Department: Room: Gender: Male Volleyball Coach: Eloisa Zhang : 1940 Requested By: Prerna Shoemaker Order Number: [id number] Kimberly MD: Flaca Santos M.D. Interpretive Statements NAME OF STUDY: LEXISCAN SESTAMIBI STRESS TEST INDICATION: Chest Pain, SOB, Fatigue PROCEDURE: At the baseline, the blood pressure was 95/66 mmHg with a heart rate of 67 bpm. The electrocardiogram showed V paced rhythm. ??? The Lexiscan was infused over a period of 20 seconds. A total of 0.4 milligrams of Lexiscan was infused. The stress phase was continued for a total of 5 minutes. Heart rate at the end of the stress phase was 70 bpm with a blood pressure of 126/76 mmHg. The EKG at the peak infusion revealed V paced rhythm. ??? Sestamibi was injected 20 seconds after the Lexiscan infusion. ??? Blood pressure at the end of the recovery phase was 135/68 mmHg with a heart rate of 83 beats per minute. ??? CONCLUSION: 1. Nondiagnostic EKG changes with the] LexiScan infusion due to baseline ventricular paced rhythm. 2. No LexiScan induced chest pain or cardiac arrhythmia. 3. Normal blood pressure and heart rate response. 4. Sestamibi/sestamibi perfusion scan pending; see separate report. Electronically Signed On 08-19-2023 12:05:40 ARCGIS DEVELOPER by Flaca Santos M.D. [id number]
[2023-08-11 09:50] VITALS: BMI 29.7
--- NOTE | 2023-08-11 09:53 | NMCV_ITS ---
NM raudel perf SPECT r/s* [id number] Ashish Armijo Age: 82 Gender: M : 1940 Exam Date: 08/11/2023 10:43 Ordering Phys: Prerna Shoemaker Technologist: JOEY Downs Exam Location: [facility] Indications: ATHEROSCLEROTIC HEART DISEASE STRESS TEST Please see separate stress test report [facility] for full findings IMAGE PROTOCOL Rest/Stress 1 Lexiscan Day Radiopharmaceutical Dose (mCi) Administration Site Administered by Rest: Tc-99m 10.5 IV JOEY Sr Sestamibi Stress:Tc-99m 32.6 IV JOEY Sr Sestamibi Rest: 11-Aug-2023 60 Discovery 630 Stress: 11-Aug-2023 30 Discovery 630 0.4mg Lexiscan. Images obtained in supine and prone position. SPECT RESULTS Technical Quality: Excellent Raw Data Analysis: Normal Image Corrections: No attenuation or motion correction applied Summed Stress Score: 26 Summed Rest Score: 26 Summed Difference Score: 2 PERFUSION FINDINGS Moderate to large area of moderate to severely decreased aseptic involving the inferior, inferolateral, inferoseptal and all the apical segments. Several areas of reversibility was noted in the basal inferolateral and apical region FUNCTIONAL RESULTS (calculated via Gated SPECT) Stress Image LV EF (%): 32 Stress EDV (mL):179 TID: 1.09 Stress ESV (mL):121 FUNCTIONAL FINDINGS: Segmental wall motion analysis revealed severe diffuse hypokinesia of the apex, lateral wall and the septal regions. IMPRESSIONS 1. Myocardial perfusion imaging revealing a moderate to large area of moderate to severely decreased tracer uptake involving the inferior, inferolateral, inferoseptal and apical segments with subtle areas of reversibility suggesting extensive myocardial scarring in the distribution of all the 3 coronary arteries with a subtle areas of bret-infarction ischemia. 2. Diminished LV ejection fraction of 32%. 3. Multiple wall motion normalities as mentioned above 4. Moderately dilated LV cavity with an end-systolic volume of 121 ml. Compared to the study from 05/12/2022, there seems to be some infarct expansion and a decline in the LV ejection fraction Dr Karolina Lam MD [facility] (Electronically Signed) Final Date: 11 August 2023 16:24 S
[2023-08-11] MEDS: regadenoson 0.4 Mg/5 ml Syringe IVP (12:07)
[2023-08-11 12:23] VITALS: BP 135/68; PULSE 72
== END 2023-08-11 09:30 | disposition home or self-care (01) ==
PROVIDERS: PCP Physician Assistant; Visit Provider Nurse Practitioner Family
DX: R07.9 Chest pain, unspecified (principal); I25.10 Atherosclerotic heart disease of native coronary artery without angina pectoris; I25.9 Chronic ischemic heart disease, unspecified; R53.83 Other fatigue; R06.02 Shortness of breath
CPT/HCPCS: 36415; 78452; 93017; 96374; A9500; J2785

== ENCOUNTER → 2023-08-15 11:05 | Outpatient (BNVA) | payer OTHER, SELFPAY | PROVIDERS: PCP Physician Assistant; Visit Provider Internal Medicine Cardiovascular Disease | DX: I25.119 Atherosclerotic heart disease of native coronary artery with unspecified angina pectoris (principal); Z95.0 Presence of cardiac pacemaker; E78.5 Hyperlipidemia, unspecified; I10 Essential (primary) hypertension; J44.9 Chronic obstructive pulmonary disease, unspecified; Z87.891 Personal history of nicotine dependence | CPT/HCPCS: 99214 ==

== ENCOUNTER 2023-11-12 10:32 | Emergency (ER) | payer OTHER, SELFPAY ==
[2023-11-12 10:37] VITALS: BP 154/87; PULSE 80; RESP 16; TEMP 36.9; O2SAT 96; BMI 29.8
--- NOTE | 2023-11-12 10:39 | ECG_ITS ---
[facility] Test Date: 2023-11-12 Pat Name: Ashish Armijo Department: Room: Gender: Male Partner Cco: : 1940 Requested By: Jose Conklin Order Number: [id number] Kimberly MD: Chester Keen M.D. Measurements Intervals [place] Rate: 77 P: 105 [place]: 173 QRS: -78 QRSD: 221 T: 0 QT: 438 QTc: 498 Interpretive Statements ELECTRONIC ATRIAL PACEMAKER ELECTRONIC VENTRICULAR PACEMAKER ABNORMAL RHYTHM ECG INTERPRETATION BASED ON A DEFAULT AGE OF 40 YEARS Compared to ECG 05/31/2023 09:50:11 No significant changes Electronically Signed On 11-13-2023 10:22:56 CDT by Chester Keen M.D. [id number]
--- NOTE | 2023-11-12 10:56 | XRR_ITS ---
PROCEDURE INFORMATION: Exam: XR Chest Exam date and time: 11/12/2023 11:09 AM Age: 82 years old Clinical indication: Other: Pain; Prior surgery; Surgery date: 6+ months; Surgery type: Heart stents/pacemaker; Additional info: Cp TECHNIQUE: Imaging protocol: Radiologic exam of the chest. Views: 1 view. COMPARISON: CR XR chest 1V portable [id number] 04/15/2023 6:56 PM FINDINGS: Tubes, catheters and devices: Left anterior chest wall pacemaker with leads in the atrial and ventricular regions. The atrial electrode has changed position when compared to prior imaging dated 04/15/2023. Correlate for recent surgical history. Lungs: Bilateral lung lobes are clear. Pleural spaces: No pneumothorax, pleural effusion. Heart/Mediastinum: Unremarkable. No cardiomegaly. Bones/joints: Unremarkable. XR/XR chest 1V portable [id number] IMPRESSION: Left anterior chest wall pacemaker with leads in the atrial and ventricular regions. The atrial electrode has changed position when compared to prior imaging dated 04/15/2023. Correlate with recent surgical and/or imaging history.
--- NOTE | 2023-11-12 10:57 | W.ED.CHESTPA ---
HPI - Chest Pain General: Chief Complaint: Chest Pain Stated Complaint: Chest pain Time Seen by Provider: 11/12/23 10:34 Source: patient and family Mode of arrival: ambulatory Limitations: no limitations History of Present Illness: This patient made his way to the emergency department because of concerns about chest pain. He states he developed chest pain about an hour prior to arrival in the right side of his heart he describes it in location and seem to radiate into his left upper arm. He states the pain lasted approximately 20 minutes and then abated. He states he still has some minimal if any discomfort at this time. He states he was walking around the store when this episode occurred. He states that he has had no concomitant fever cough but did feel like he might be a bit short of wind with his symptoms this morning. He did not take nitroglycerin. He has had recent pacemaker and stent placed last fall. He is taking all his prescribed medications faithfully. He has had prior stents placed approximately a dozen years ago. 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 relates that after he finished this activity he was fatigued and sat in the chair most of the afternoon. MD complaint: chest pain Pertinent past history: coronary artery disease Onset: during exertion Pain location: right chest Pain radiation: left arm Exacerbating factors: nothing Associated symptoms: Deny abdominal pain, fever(s), nausea, syncope or vomiting Review of Systems Const: Denies: fever(s) or chills Eyes: Denies: change in vision ENMT: Denies: throat pain, odynophagia, nasal discharge or nasal congestion Card: Reports: chest pain; Denies: syncope or pre-syncope Resp: Denies: productive cough or non-productive cough GI: Denies: abdominal pain, nausea or vomiting : Denies: flank pain, difficulty urinating, dysuria or urinary frequency Musc: Denies: neck pain, back pain, extremity pain or extremity swelling Skin/Breast: Denies: rash Neuro: Denies: numbness in extremities or weakness in extremities Psych: Denies: anxiety or depression [facility] ED PFSH: Medical History Pacemaker Medtronic dual chamber 04/15/23 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 Chest pain Tobacco abuse, in remission ASHD (arteriosclerotic heart disease) Myocardial infarction Dyslipidemia HTN (hypertension) COPD (chronic obstructive pulmonary disease) Surgical History S/P angioplasty with stent Family History Father , AGE 90 CAD (coronary artery disease) Cancer COLON Mother Stroke Social History Smoking and tobacco/nicotine status: former use of tobacco/nicotine Quit status (tobacco/nicotine): has quit using Alcohol intake: former Substance/Drug Use: never Household members: spouse Marital status: service: Yes Current occupational status: retired Current gender identity: Male Betsey/Rastafarian: Evangelical Physical Exam Narrative: EXAM NARRATIVE: The patient appears to be comfortable and alert in no acute distress. He answers questions in a goal-directed fashion. Const: COMMON NORMALS: no acute distress, average body habitus, patient oriented x3 and alert GENERAL APPEARANCE: cooperative and comfortable HENMT: COMMON NORMALS: normocephalic, Normal nasal mucous membranes and turbinates present, moist oral mucous membranes and oropharynx normal HEAD & SCALP: normocephalic NOSE: Normal nasal mucous membranes and turbinates present Eye: COMMON NORMALS: Equal, round and reactive pupils present, EOMs intact bilaterally and conjunctivae normal CONJUNCTIVA: Yes conjunctivae normal PUPIL: Yes Equal, round and reactive pupils present Neck/C-Spine: COMMON NORMALS: full ROM, no lymphadenopathy, no JVD and No carotid bruits Chest: COMMONS NORMALS: normal inspection of the chest and normal palpation of entire chest wall OTHER: Palpable implanted health care / medical job titles in left upper chest. No tenderness drainage or erythema. Resp: COMMON NORMALS: normal respiratory effort, No retractions, No use of accessory muscles and clear to auscultation bilaterally AUSCULTATION: clear to auscultation bilaterally Cardio: COMMON NORMALS: no JVD, regular rate, regular rhythm, No murmurs present (Cardio) and Peripheral pulses 2+ throughout RATE: regular rate RHYTHM: regular rhythm PERIPHERAL PULSES: Peripheral pulses 2+ throughout GI: COMMON NORMALS: Normal to inspection, nondistended, normoactive bowel sounds present, Soft to palpation and non-tender PALPATION: Yes Soft to palpation : COMMON NORMALS: Yes no CVA tenderness BLADDER/KIDNEY EXAM: Yes no CVA tenderness Back/Pelvis: COMMON NORMALS: no CVA tenderness, thoracic and lumbar spine normal to inspection, no thoracic nor lumbar tenderness and thoraco-lumbar ROM normal Extremity: COMMON NORMALS: normal to inspection, full ROM, capillary refill normal, no calf tenderness and no pedal edema Neuro: COMMON NORMALS: patient oriented x3, moves all extremities, no focal motor deficits and no sensory deficits noted SENSORIUM/ORIENTATION: Yes alert Psych: COMMON NORMALS: mental status grossly normal Skin: COMMON NORMALS: no rashes or lesions noted, no wounds and turgor normal GENERAL SKIN EXAM: no rashes or lesions noted and turgor normal Course Reevaluation(s): Reevaluation #1: Patient is clinically stable. Discussed EKG changes for consideration of STEMI equivalent with cardiology on-call who voiced opinion they did not feel that there was any significance to his current EKG. Time: 11:36 Reevaluation #2: Patient is pain-free and stable discussed current findings and will await a second troponin to mitigate against possible ongoing ischemia. 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 He was pain-free or relatively so at the time of presentation. He has known coronary disease had prior stents placed. The chest pain had been right-sided with some radiation to his left shoulder. There was no associated nausea vomiting diaphoresis or other symptoms. The pain was not ripping or tearing in nature. It did not radiate other than what previously described. No recent cough cold fevers etc. His evaluation in the emergency department revealed him to be normotensive with a paced rhythm. No clinical examination or stigmata to suggest a worrisome condition. Workup to ensure mitigate against likely ACS was instituted. Again initial EKGs were unremarkable and unchanged and were reviewed with cardiology. Initial troponin was unremarkable and a second troponin was obtained which had a acceptable minimal delta. Chest x-ray did not reveal any stigmata of acute disease. Remainder of his laboratories are also reassuring. He remained pain-free while in the emergency department under prolonged observation. We discussed current findings and also home observation which she was in favor of. We will place a case management consultation for a 2-week cardiology follow-up and also discussed home care use of nitroglycerin and return precautions. Medical Records I reviewed the patient's medical records. Lab Data I reviewed the patient's lab results. 11/12/23 10:49 11/12/23 10:49 Radiology Impressions Chest X-Ray 11/12/23 10:56 IMPRESSION: Left anterior chest wall pacemaker with leads in the atrial and ventricular regions. The atrial electrode has changed position when compared to prior imaging dated 04/15/2023. Correlate with recent surgical and/or imaging history. Laboratory Results WBC 5.52 10^3/uL (3.29-11.43) 11/12/23 10:49 RBC 5.27 10^6/uL (3.85-5.65) 11/12/23 10:49 Hgb 15.40 g/dL (11.27-16.99) 11/12/23 10:49 Hct 46.1 % (37-53) 11/12/23 10:49 MCV 87.5 fl (82-101) 11/12/23 10:49 MCH 29.2 pg (27-33) 11/12/23 10:49 MCHC 33.4 g/dL (30-55) 11/12/23 10:49 RDW 12.7 % (12.1-15.1) 11/12/23 10:49 Plt Count 212 10^3/cmm (157-399) 11/12/23 10:49 MPV 9.2 fL (7.4-10.4) 11/12/23 10:49 Neut % (Auto) 54.4 % 11/12/23 10:49 Lymph % (Auto) 31.9 % 11/12/23 10:49 [place] % (Auto) 10.9 % 11/12/23 10:49 Eos % (Auto) 1.6 % 11/12/23 10:49 Baso % (Auto) 0.7 % 11/12/23 10:49 Neut # (Auto) 3.00 10^3/uL (1.8-7.7) 11/12/23 10:49 Lymph # (Auto) 1.8 10^3/uL (0.8-4.8) 11/12/23 10:49 [place] # (Auto) 0.6 10^3/uL (0.2-0.9) 11/12/23 10:49 Eos # (Auto) 0.1 10^3/uL (0.0-0.8) 11/12/23 10:49 Baso # (Auto) 0.0 10^3/uL (0.0-0.1) 11/12/23 10:49 Nucleated RBC % (auto) 0 % 11/12/23 10:49 Nucleated RBCs # 0.0 /100WBC 11/12/23 10:49 Sodium 137 mmol/L (136-145) 11/12/23 10:49 Potassium 4.6 mmol/L (3.5-5.1) 11/12/23 10:49 Chloride 101 mmol/L (98-107) 11/12/23 10:49 Carbon Dioxide 26 mmol/L (22-29) 11/12/23 10:49 Anion Gap 14.6 (5-19) 11/12/23 10:49 BUN 11 mg/dL (8-23) 11/12/23 10:49 Creatinine 1.0 mg/dL (0.7-1.2) 11/12/23 10:49 GFR Calculation Not Reportable 11/12/23 10:49 Glucose 97 mg/dL (65-115) 11/12/23 10:49 Calculated Osmolality 283 mOsm/kg (285-295) L 11/12/23 10:49 Calcium 9.2 mg/dL (8.5-10.5) 11/12/23 10:49 Troponin T Baseline 15 ng/L (0-15) 11/12/23 10:49 Troponin T 120 Minute 19.09 ng/L (0-15) H 11/12/23 12:51 Delta Troponin T 4.09 ABS# (0-10) 11/12/23 12:51 NT-Pro-B Natriuret Pep 722 pg/mL (0-450) H 11/12/23 10:49 All radiology interpretation(s) finalized by discharge EKG Data EKG 1: I personally reviewed and interpreted this EKG as follows: Interpretation: Contemporaneous review of resting EKG reveals ventricular rate of 77 bpm consistent with a paced rhythm. Patient does have some significant ST discordant changes across the precordium. EKG 2: Computer generated interpretation: Second EKG this visit reveals a paced rhythm at 62 bpm. Normal intervals normal bundle branch block pattern consistent with atrial pacemaker. No other changes of dynamic nature from prior tracings either this visit or prior visits. Discharge Plan Discharge Patient Disposition: Home Clinical Impression: Chest pain Condition: Stable Prescriptions: No Action pantoprazole 40 mg tablet,delayed release (DR/EC) 40 mg PO DAILY saw palmetto 450 mg capsule 450 mg PO DAILY enalapril maleate 10 mg tablet 10 mg PO DAILY tamsulosin 0.4 mg capsule 0.4 mg PO DAILY PRN (Reason: Urinary Retention) cyanocobalamin (vitamin B-12) 5,000 mcg capsule 5,000 mcg PO DAILY nitroglycerin [Nitrostat] 0.4 mg tablet, sublingual 0.4 mg SUBLINGUAL Q5M PRN (Reason: chest pain) Qty: 25 6RF cetirizine [Zyrtec] 10 mg tablet 10 mg PO DAILY ranolazine 500 mg tablet extended release 12 hr 500 mg PO BID metoprolol tartrate 25 mg tablet 25 mg PO BID 30 Days Qty: 60 5RF clopidogrel 75 mg tablet 75 mg PO DAILY Qty: 90 3RF aspirin 81 mg tablet,chewable 81 mg PO DAILY Qty: 90 1RF fluticasone propionate 50 mcg/actuation spray,suspension 1 spray INTRANASAL BID PRN (Reason: ALLERGIES) Glucosamine 1500 Complex 500-400 mg Capsule 1 cap PO DAILY Rx Instructions: (1500MG) rosuvastatin 40 mg tablet 40 mg PO DAILY Discharge Orders: Discharge ED (Routine); Ordered 11/12/23 Ordered By: Jose Conklin Referrals: Angelika Johnson PA [Primary Care Provider] - Discharge Diet: Low Salt Discharge Activity: Increase activity as tolerated Patient Instructions: Opioid Safety, Pain Management Activity Restrictions/Additional Instructions: As we discussed while you are in the emergency department he did not have any findings today that suggest you are having a heart attack or any other serious condition causing your chest pain. We have made a consultation to speed up your cardiology appointment within the next 2 weeks and they should contact you with an appointment time. You should continue all your usual medications. If you develop chest pain you should take one of your sublingual nitroglycerin and may do so up to 3 sublingual nitroglycerin pills over 15 minutes. If you still continue to have chest pain you should report to the emergency department immediately. If you have any other worsening or concerning symptoms you are welcome to return to the emergency department at any time. Coding Level of Care Code ED Director Of Physical Education for Beti España
[2023-11-12 11:03] LABS: Basophils % 0.7 %; Eosinophils # 0.1 10^3/uL (0.0-0.8); Eosinophils % 1.6 %; Hematocrit 46.1 % (37-53); Lymphocytes # 1.8 10^3/uL (0.8-4.8); Lymphocytes % 31.9 %; Mean Corpuscular HGB Conc 33.4 g/dL (30-55); Mean Corpuscular Hemoglobin 29.2 pg (27-33); Mean Corpuscular Volume 87.5 fl (82-101); Mean Platelet Volume 9.2 fL (7.4-10.4); Monocytes # 0.6 10^3/uL (0.2-0.9); Monocytes % 10.9 %; Neutrophils % 54.4 %; Nucleated Red Blood Cells % 0 %; Platelet Count 212 10^3/cmm (157-399); Red Blood Count 5.27 10^6/uL (3.85-5.65); Red Cell Distribution Width 12.7 % (12.1-15.1); White Blood Count 5.52 10^3/uL (3.29-11.43)
[2023-11-12] MEDS: nitroglycerin 0.4 mg sublingual Tablet 0.400000000000000022 MG SUBLINGUAL (11:07)
[2023-11-12 11:09] VITALS: BP 118/73; PULSE 60; RESP 16; O2SAT 92
[2023-11-12 11:20] LABS: Troponin(5th) Baseline 15 ng/L (0-15)
[2023-11-12 11:25] LABS: Anion Gap 14.6 (5-19); Blood Urea Nitrogen 11 mg/dL (8-23); Calcium 9.2 mg/dL (8.5-10.5); Carbon Dioxide 26 mmol/L (22-29); Chloride 101 mmol/L (98-107); Creatinine Clr Calc Pharmacy 69.6612; Glucose 97 mg/dL (65-115); NT Pro B Type Natriuretic Pept 722 pg/mL (0-450); Osmolality Calculated 283 mOsm/kg (285-295); Potassium 4.6 mmol/L (3.5-5.1); Sodium 137 mmol/L (136-145)
--- NOTE | 2023-11-12 11:35 | PC.PHAR ---
SPOUSE HAS MED LIST-WENT OVER WITH HER VERBALLY WELL VERIFYING LIST.
[2023-11-12 13:00] VITALS: BP 126/66; PULSE 60; RESP 17; O2SAT 95
[2023-11-12 13:27] LABS: Troponin 5 2HR 19.09 ng/L (0-15); Troponin 5 2HR Delta 4.09 ABS# (0-10)
[2023-11-12 13:30] VITALS: BP 124/70; PULSE 60; RESP 14; O2SAT 97
--- NOTE | 2023-11-12 13:32 | ECG_ITS ---
[facility] Test Date: 2023-11-12 Pat Name: Ashish Armijo Department: Room: Gender: Male Vice President Safety: : 1940 Requested By: Jose Conklin Order Number: [id number] Kimberly MD: Chester Keen M.D. Measurements Intervals [place] Rate: 62 P: 103 [place]: 178 QRS: -77 QRSD: 217 T: 81 QT: 478 QTc: 486 Interpretive Statements ELECTRONIC ATRIAL PACEMAKER ELECTRONIC VENTRICULAR PACEMAKER ABNORMAL RHYTHM ECG Compared to ECG 11/12/2023 10:39:07 No significant changes Electronically Signed On 11-13-2023 10:25:03 CDT by Chester Keen M.D. [id number]
[2023-11-12 14:09] VITALS: BP 126/83; PULSE 60; RESP 14; O2SAT 96
--- NOTE | 2023-11-14 07:18 | DCPLANNER ---
A message was sent to heart care on 11/14/23 at 0718 am. Clinic to contact patient for appt.
== END 2023-11-12 14:06 | disposition home or self-care (01) ==
PROVIDERS: Emergency Provider Emergency Medicine; PCP Physician Assistant
DX: R07.9 Chest pain, unspecified (principal); Z79.02 Long term (current) use of antithrombotics/antiplatelets; Z79.82 Long term (current) use of aspirin; Z87.891 Personal history of nicotine dependence; Z95.0 Presence of cardiac pacemaker; I25.2 Old myocardial infarction; E78.5 Hyperlipidemia, unspecified; I10 Essential (primary) hypertension; J44.9 Chronic obstructive pulmonary disease, unspecified
CPT/HCPCS: 36415; 71045; 80048; 83880; 84484; 85025; 93005; 99285

== ENCOUNTER → 2023-12-01 14:38 | Outpatient (BNVA) | payer OTHER, SELFPAY | PROVIDERS: PCP Physician Assistant; Visit Provider Nurse Practitioner Family | DX: I25.10 Atherosclerotic heart disease of native coronary artery without angina pectoris (principal); Z95.0 Presence of cardiac pacemaker; I10 Essential (primary) hypertension; Z87.891 Personal history of nicotine dependence | CPT/HCPCS: 93005; 93288; 99214 ==

== ENCOUNTER 2023-12-05 12:17 | Outpatient (CLI) | payer OTHER, SELFPAY ==
[2023-12-05 13:19] LABS: Anion Gap 15.7 (5-19); Blood Urea Nitrogen 19 mg/dL (8-23); Carbon Dioxide 24 mmol/L (22-29); Chloride 106 mmol/L (98-107); Glucose 111 mg/dL (65-115); NT Pro B Type Natriuretic Pept 1381 pg/mL (0-450); Osmolality Calculated 295 mOsm/kg (285-295); Potassium 4.7 mmol/L (3.5-5.1); Sodium 141 mmol/L (136-145)
== END 2023-12-05 12:18 | disposition home or self-care (01) ==
LOC: LAB 12:18
PROVIDERS: PCP Physician Assistant; Visit Provider Nurse Practitioner Family
DX: I10 Essential (primary) hypertension (principal); I25.10 Atherosclerotic heart disease of native coronary artery without angina pectoris; Z95.0 Presence of cardiac pacemaker
CPT/HCPCS: 36415; 80048; 83880

== ENCOUNTER → 2023-12-22 14:48 | Outpatient (BNVA) | payer OTHER, SELFPAY | PROVIDERS: PCP Physician Assistant; Visit Provider Internal Medicine Cardiovascular Disease | DX: R07.9 Chest pain, unspecified (principal) | CPT/HCPCS: 93005 ==

== ENCOUNTER 2023-12-22 15:03 | Inpatient (IN) | payer OTHER, SELFPAY ==
--- NOTE | 2023-12-22 15:05 | XR_ITS ---
WS: [id number] Exam: XR chest 1V portable [id number] Date/Time of Exam: 12/22/2023 3:05 PM Reason For Exam: cp Comparison 11/12/2023. The lungs are clear and fully inflated. Unremarkable cardiomediastinal silhouette. No pleural effusio ns. Bony structures are intact. Permanent cardiac pacer superimposes the LEFT chest. IMPRESSION: 1. No acute cardiopulmonary finding.
--- NOTE | 2023-12-22 15:05 | ECG_ITS ---
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 Measurements Intervals [place] Rate: 61 P: 93 [place]: 182 QRS: 265 QRSD: 219 T: 42 QT: 479 QTc: 483 Interpretive Statements ELECTRONIC ATRIAL PACEMAKER ELECTRONIC VENTRICULAR PACEMAKER Compared to ECG 12/22/2023 14:53:14 No significant changes Electronically Signed On 12-22-2023 15:20:48 CDT by Amilcar Ring M.D. [id number]
[2023-12-22 15:33] VITALS: BP 121/76; PULSE 79; RESP 16; O2SAT 96
[2023-12-22 16:03] LABS: Basophils # 0.1 10^3/uL (0.0-0.1); Basophils % 0.8 %; Eosinophils # 0.1 10^3/uL (0.0-0.8); Hematocrit 46.1 % (37-53); Lymphocytes # 2.4 10^3/uL (0.8-4.8); Lymphocytes % 40.4 %; Mean Corpuscular HGB Conc 33.8 g/dL (30-55); Mean Corpuscular Hemoglobin 29.4 pg (27-33); Mean Corpuscular Volume 86.8 fl (82-101); Mean Platelet Volume 9.1 fL (7.4-10.4); Monocytes # 0.7 10^3/uL (0.2-0.9); Monocytes % 12.1 %; Neutrophils # 2.64 10^3/uL (1.8-7.7); Neutrophils % 44.2 %; Nucleated Red Blood Cells % 0 %; Platelet Count 230 10^3/cmm (157-399); Red Blood Count 5.31 10^6/uL (3.85-5.65); Red Cell Distribution Width 12.4 % (12.1-15.1); White Blood Count 5.97 10^3/uL (3.29-11.43)
[2023-12-22 16:21] LABS: Alanine Aminotransferase 19 U/L (0-41); Albumin Level 4.4 g/dL (3.5-5.2); Alkaline Phosphatase 69 U/L (40-130); Anion Gap 14.3 (5-19); Aspartate Amino Transferase 17 U/L (0-40); Blood Urea Nitrogen 16 mg/dL (8-23); Calcium 9.8 mg/dL (8.5-10.5); Carbon Dioxide 28 mmol/L (22-29); Chloride 101 mmol/L (98-107); Creatinine Clr Calc Pharmacy 62.3672; Globulin 2.7 g/dL (1.3-4.6); Glucose 100 mg/dL (65-115); Lipase 61 U/L (13-60); Osmolality Calculated 289 mOsm/kg (285-295); Potassium 4.3 mmol/L (3.5-5.1); Sodium 139 mmol/L (136-145); Total Bilirubin 0.6 mg/dL (0.15-1.2); Total Protein 7.1 g/dL (6.6-8.7)
[2023-12-22 16:25] LABS: Troponin(5th) Baseline 167 ng/L (0-15)
--- NOTE | 2023-12-22 16:32 | ED_ITS ---
HPI - Chest Pain 2 General: Chief Complaint: Chest Pain Stated Complaint: dr reza, chest pain Time Seen by Provider: 12/22/23 15:06 Source: patient Mode of arrival: ambulatory History of Present Illness: 83-year-old male presents emergency room with complaint of chest pain. He is intermittently been having chest pain for the last couple of weeks he noticed whenever he does activity he gets chest discomfort when he stops and rests it resolves after about 15 minutes he states he has noticed he can walk about 350 steps and then he gets chest discomfort. He has a known history of heart disease his previous angioplasty with stenting. He also has a pacemaker. Denies any other recent illness or other ongoing issues. He is a non-smoker he has no history of diabetes mellitus. No chest pain currently at this time initial EKG shows paced rhythm MD complaint: chest pain Onset (ago): minute(s) Timing of current episode: episodic Prior episodes: Yes Onset: during exertion Pain location: substernal and left chest Pain radiation: left arm Quality: aching and dull Relieving factors: rest Exacerbating factors: exertion Associated symptoms: Deny abdominal pain, dyspnea or fever(s) Treatment prior to arrival: none Review of Systems 2 Const: Denies: fever(s) or chills Card: Denies: chest pain Resp: Denies: dyspnea GI: Denies: abdominal pain : Denies: dysuria, urinary frequency or urinary urgency Musc: Denies: neck pain or back pain Skin/Breast: Denies: rash PFSH ED 2 PFSH: Medical History Pacemaker Medtronic dual chamber 04/15/23 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 Chest pain Tobacco abuse, in remission ASHD (arteriosclerotic heart disease) Myocardial infarction Dyslipidemia HTN (hypertension) COPD (chronic obstructive pulmonary disease) Surgical History S/P angioplasty with stent Family History Father , AGE 90 CAD (coronary artery disease) Cancer COLON Mother Stroke Social History Smoking and tobacco/nicotine status: former use of tobacco/nicotine Quit status (tobacco/nicotine): has quit using Alcohol intake: former Substance/Drug Use: never Household members: spouse Marital status: service: Yes Current occupational status: retired Current gender identity: Male Betsey/Cheondoism: Adventist Physical Exam 2 Const: COMMON NORMALS: no acute distress GENERAL APPEARANCE: cooperative and comfortable ORIENTATION/CONSCIOUSNESS: Yes awake, Yes oriented to person, Yes oriented to place and Yes oriented to time HENMT: COMMON NORMALS: normocephalic, atraumatic and hearing grossly normal bilaterally HEAD & SCALP: normocephalic and atraumatic Resp: COMMON NORMALS: normal respiratory effort, No retractions, No use of accessory muscles and clear to auscultation bilaterally AUSCULTATION: clear to auscultation bilaterally Cardio: COMMON NORMALS: regular rate, regular rhythm and No murmurs present (Cardio) RATE: regular rate RHYTHM: regular rhythm GI: COMMON NORMALS: Soft to palpation and No hepatosplenomegaly present A USCULTATION: Yes normoactive bowel sounds PALPATION: Yes Soft to palpation, No Tenderness to palpation present (GI), No Guarding due to palpation present (GI) and Yes No hepatosplenomegaly present Extremity: COMMON NORMALS: normal to inspection, capillary refill normal, no clubbing, cyanosis or edema, no calf tenderness and no pedal edema Neuro: SENSORIUM/ORIENTATION: Yes oriented to person, Yes oriented to place and Yes oriented to time Skin: COMMON NORMALS: no rashes or lesions noted GENERAL SKIN EXAM: no rashes or lesions noted Course 2 Vital Signs: Vital signs: Vital Signs Pulse Rate 79 12/22/23 15:33 Respiratory Rate 16 12/22/23 15:33 Blood Pressure 121/76 12/22/23 15:33 Pulse Oximetry 96 12/22/23 15:33 Oxygen Delivery Me thod Room Air 12/22/23 15:33 MDM - Chest Pain Medical Decision Making EKG shows a paced rhythm with no criteria for ST elevation present. Rhythm is at baseline rate for the pacer. First troponin is elevated at 167. Will heparinize started on nitro levo bedrest admit to Dr. Lam have discussed it with him orders are written. Medical Records I reviewed the patient's medical records. Lab Data I reviewed the patient's lab results. 12/22/23 15:45 12/22/23 15:45 Laboratory Results WBC 5.97 10^3/uL (3.29-11.43) 12/22/23 15:45 RBC 5.31 10^6/uL (3.85-5.65) 12/22/23 15:45 Hgb 15.60 g/dL (11.27-16.99) 12/22/23 15:45 Hct 46.1 % (37-53) 12/22/23 15:45 MCV 86.8 fl (82-101) 12/22/23 15:45 MCH 29.4 pg (27-33) 12/22/23 15:45 MCHC 33.8 g/dL (30-55) 12/22/23 15:45 RDW 12.4 % (12.1-15.1) 12/22/23 15:45 Plt Count 230 10^3/cmm (157-399) 12/22/23 15:45 MPV 9.1 fL (7.4-10.4) 12/22/23 15:45 Neut % (Auto) 44.2 % 12/22/23 15:45 Lymph % (Auto) 40.4 % 12/22/23 15:45 [place] % (Auto) 12.1 % 12/22/23 15:45 Eos % (Auto) 2.0 % 12/22/23 15:45 Baso % (Auto) 0.8 % 12/22/23 15:45 Neut # (Auto) 2.64 10^3/uL (1.8-7.7) 12/22/23 15:45 Lymph # (Auto) 2.4 10^3/uL (0.8-4.8) 12/22/23 15:45 [place] # (Auto) 0.7 10^3/uL (0.2-0.9) 12/22/23 15:45 Eos # (Auto) 0.1 10^3/uL (0.0-0.8) 12/22/23 15:45 Baso # (Auto) 0.1 10^3/uL (0.0-0.1) 12/22/23 15:45 Nucleated RBC % (auto) 0 % 12/22/23 15:45 Nucleated RBCs # 0.0 /100WBC 12/22/23 15:45 Sodium 139 mmol/L (136-145) 12/22/23 15:45 Potassium 4.3 mmol/L (3.5-5.1) 12/22/23 15:45 Chloride 101 mmol/L (98-107) 12/22/23 15:45 Carbon Dioxide 28 mmol/L (22-29) 12/22/23 15:45 Anion Gap 14.3 (5-19) 12/22/23 15:45 BUN 16 mg/dL (8-23) 12/22/23 15:45 Creatinine 1.1 mg/dL (0.7-1.2) 12/22/23 15:45 GFR Calculation Not Reportable 12/22/23 15:45 Glucose 100 mg/dL (65-115) 12/22/23 15:45 Calculated Osmolality 289 mOsm/kg (285-295) 12/22/23 15:45 Calcium 9.8 mg/dL (8.5-10.5) 12/22/23 15:45 Total Bilirubin 0.6 mg/dL (0.15-1.2) 12/22/23 15:45 AST 17 U/L (0-40) 12/22/23 15:45 ALT 19 U/L (0-41) 12/22/23 15:45 Alkaline Phosphatase 69 U/L (40-130) 12/22/23 15:45 Troponin T Baseline 167 ng/L (0-15) H* 12/22/23 15:45 Total Protein 7.1 g/dL (6.6-8.7) 12/22/23 15:45 Albumin 4.4 g/dL (3.5-5.2) 12/22/23 15:45 Globulin 2.7 g/dL (1.3-4.6) 12/22/23 15:45 Lipase 61 U/L (13-60) H 12/22/23 15:45 All radiology interpretation(s) finalized by discharge Discharge Plan Discharge Patient Disposition: Admitted As Inpatient Clinical Impression: Non-ST elevation [place] (NSTEMI), Atherosclerotic heart disease [place] coronary artery w/angina pectoris, Pacemaker, HTN (hypertension) Condition: Stable Prescriptions: No Action pantoprazole 40 mg tablet,delayed release (DR/EC) 40 mg PO DAILY saw palmetto 450 mg capsule 450 mg PO DAILY enalapril maleate 10 mg tablet 10 mg PO DAILY tamsulosin 0.4 mg capsule 0.4 mg PO DAILY PRN (Reason: Urinary Retention) cyanocobalamin (vitamin B-12) 5,000 mcg capsule 5,000 mcg PO DAILY nitroglycerin [Nitrostat] 0.4 mg tablet, sublingual 0.4 mg SUBLINGUAL Q5M PRN (Reason: chest pain) Qty: 25 6RF cetirizine [Zyrtec] 10 mg tablet 10 mg PO DAILY isosorbide dinitrate 30 mg tablet 30 mg PO BID Rx Instructions: allow nitrate-free interval of 12-14 hrs per 24-hr period ranolazine 500 mg tablet extended release 12 hr 500 mg PO BID clopidogrel 75 mg tablet 75 mg PO DAILY Qty: 90 3RF metoprolol tartrate 25 mg tablet See Rx Instructions .ROUTE .COMPLEX Qty: 60 5RF Dose Instruction: TAKE 1 TABLET BY MOUTH TWICE DAILY Rx Instructions: TAKE 1 TABLET BY MOUTH TWICE DAILY furosemide 40 mg tablet 40 mg PO DAILY Qty: 30 3RF aspirin 81 mg tablet,chewable 81 mg PO DAILY Qty: 90 1RF fluticasone propionate 50 mcg/actuation spray,suspension 1 spray INTRANASAL BID PRN (Reason: ALLERGIES) Glucosamine 1500 Complex 500-400 mg Capsule 1 cap PO DAILY Rx Instructions: (1500MG) rosuvastatin 40 mg tablet 40 mg PO DAILY Referrals: Angelika Johnson PA [Primary Care Provider] - Patient Instructions: Opioid Safety, Pain Management Coding Level of Care Code ED Magnetic Observer for Beti España
--- NOTE | 2023-12-22 17:13 | ECG_ITS ---
[facility] Test Date: 2023-12-22 Pat Name: Ashish Armijo Department: Room: 103 Gender: Male Bulk Folder: : 1940 Requested By: Deena Rsoales Order Number: [id number] Kimberly MD: Amilcar Ring M.D. Measurements Intervals [place] Rate: 75 P: 81 [place]: 182 QRS: -89 QRSD: 220 T: 46 QT: 458 QTc: 513 Interpretive Statements ELECTRONIC ATRIAL PACEMAKER ELECTRONIC VENTRICULAR PACEMAKER Compared to ECG 12/22/2023 15:13:58 No significant changes Electronically Signed On 12-22-2023 17:25:08 CDT by Amilcar Ring M.D. [id number]
[2023-12-22] MEDS: heparin 5,000 unit/mL INJ 1 mL IV (17:24)
[2023-12-22] MEDS: heparin drip 25,000 UNIT/500 ML PREMIX 28.0700000000000003 UNIT IV (17:38)
[2023-12-22] MEDS: nitroglycerin drip 50 MG/250 ML PREMIX IV (17:40)
[2023-12-22 17:44] VITALS: BP 132/80; PULSE 60; O2SAT 95
[2023-12-22 19:50] LABS: Troponin 5 2HR 177.4 ng/L (0-15); Troponin 5 2HR Delta 10.4 ABS# (0-10)
[2023-12-22 20:00] VITALS: BP 143/78; PULSE 60; RESP 20; TEMP 36.4; O2SAT 95
--- NOTE | 2023-12-22 20:25 | P.HP_ITS ---
Providers/Chief Complaint 2 Admitting Physician: Karolina Lam MD Primary Care Provider: Angelika Johnson Chief Complaint: dr reza, chest pain History of Present Illness Ashish Armijo is a 83 year old male with a history of hypertension, dyslipidemia, atherosclerotic heart disease, multiple PCI's, he is admitted to the hospital through the emergency room where he presented with increasing episodes of chest pain. This patient has a longstanding history of atherosclerotic heart disease. He had initial coronary intervention in 2011. He had intervention of the proximal left anterior sending artery at that time. He presented with unstable anginal symptoms in number of 2021. The cardiac catheterization revealed high-grade in- stent stenosis in the left anterior descending artery. He underwent angioplasty of the lesion with excellent results. In May of last year, the patient again presented with unstable anginal symptoms. Repeat cardiac catheterization revealed high-grade lesion which was intervened by balloon angioplasty and stent placement. He started complaining of chest pain a month later. Myocardial perfusion imaging in August of last year revealed areas of fixed defects with a very small areas of reversible defect. It was opted to treat him medically at that time. For the last couple of weeks, he been having episodes of chest pain with exertion. The pain usually lasts for 3 to 4 minutes and then subside spontaneously with rest. But lately the pain seems to be getting more severe and lasting longer. Today had 3 episodes of chest pain each of them lasting for 10 to 15 minutes. He was seen initially in my office where he was complaining of chest pain. His EKG was uninterpretable due to the pacing artifact. He was sent to the emergency room for further evaluation. He was found to have elevated troponin T at the baseline. He is admitted to hospital for further evaluation management. According the patient, even with minimal activities, he started getting chest pain which is mid substernal, pressure-like, moderate intensity, radiating across the chest and at times rating to the left arm. He has intermittent left arm numbness. Also complaining of dyspnea on exertion and easy fatigability. No orthopnea PND. No fever, chills or cough. No other specific complaints. He has been compliant with medications. His pacemaker function was found to be appropriate. Review of Systems 2 Narrative: CONSTITUTIONAL: No fever or chills. EYES: No blurring of vision or other visual disturbances lately. ENT: No hoarseness of voice, auditory disturbances or sore throat. CARDIOVASCULAR: As mentioned above. RESPIRATORY: No significant cough. GASTROINTESTINAL: No hematemesis or melena. GENITOURINARY: No dysuria or hematuria. INTEGUMENTARY: No skin rashes or history of skin cancer. NEURO: No transient ischemic attacks or amaurosis. PSYCHIATRIC: No history of psychosis or major depression. HEMATOLOGIC: No bleeding disorders or significant anemia. ENDOCRINE: No history of polyuria or polydipsia. MUSCULOSKELETAL: No recent joint pain or swelling. ALLERGY/IMMUNOLOGY: As mentioned above. Medications/Allergies Home Medications Medication Instructions Recorded Confirmed Last Taken Type pantoprazole 40 mg tablet,delayed 40 mg PO DAILY 10/01/19 12/22/23 12/22/23 History release enalapril maleate 10 mg tablet 10 mg PO DAILY 03/30/21 12/22/23 12/22/23 History cyanocobalamin (vitamin B-12) 5,000 mcg PO DAILY 07/13/22 12/22/23 12/22/23 History 5,000 mcg capsule nitroglycerin 0.4 mg sublingual 0.4 mg sublingual Q5M PRN chest 07/13/22 12/22/23 Unknown Rx tablet (Nitrostat) pain #25 tabs saw palmetto 450 mg capsule 450 mg PO DAILY 07/13/22 12/22/23 12/22/23 History tamsulosin 0.4 mg capsule 0.4 mg PO DAILY PRN Urinary 07/13/22 12/22/23 1 Day Ago History Retention ~12/21/23 aspirin 81 mg chewable tablet 81 mg PO DAILY #90 tabs 07/27/22 12/22/23 12/22/23 Rx cetirizine 10 mg tablet (Zyrtec) 10 mg PO DAILY Allergy Symptoms 02/16/23 12/22/23 12/22/23 History ranolazine 500 mg tablet,extended 500 mg PO BID 06/13/23 12/22/23 12/22/23 History release,12 hr clopidogrel 75 mg tablet 75 mg PO DAILY #90 tabs 07/20/23 12/22/23 12/22/23 Rx fluticasone propionate 50 1 spray intranasal BID PRN 11/12/23 12/22/23 Unknown History mcg/actuation nasal ALLERGIES spray,suspension grvjjranceh-mcyyzmpft-ney C-Mn 500 1 cap PO DAILY 11/12/23 12/22/23 12/22/23 History mg-400 mg capsule rosuvastatin 40 mg tablet 40 mg PO DAILY 11/12/23 12/22/23 12/22/23 History metoprolol tartrate 25 mg tablet See Rx Instructions .Route 11/18/23 12/22/23 12/22/23 Rx .COMPLEX #60 tabs furosemide 40 mg tablet 40 mg PO DAILY #30 tabs 12/05/23 12/22/23 12/22/23 Rx isosorbide dinitrate 30 mg tablet 30 mg PO BID 12/22/23 12/22/23 12/22/23 History Allergies Allergy/AdvReac Type Severity Reaction Status Date / Time Penicillins Allergy Unknown Unknown Verified 12/22/23 15:36 PFSH Acute 2 PFSH: Medical History Pacemaker Medtronic dual chamber 04/15/23 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 Chest pain Tobacco abuse, in remission ASHD (arteriosclerotic heart disease) Myocardial infarction Dyslipidemia HTN (hypertension) COPD (chronic obstructive pulmonary disease) Surgical History S/P angioplasty with stent Family History Father , AGE 90 CAD (coronary artery disease) Cancer COLON Mother Stroke Social History Smoking and tobacco/nicotine status: former use of tobacco/nicotine Quit status (tobacco/nicotine): has quit using Alcohol intake: former Substance/Drug Use: never Household members: spouse Marital status: service: Yes Current occupational status: retired Current gender identity: Male Betsey/Yazidi: Orthodox Vitals/I&O/Wt Last Vital Signs Temp 97.6 F 12/22/23 20:00 Pulse 60 12/22/23 20:00 Resp 20 H 12/22/23 20:00 BP 143/78 12/22/23 20:00 Pulse Ox 95 12/22/23 20:00 O2 Del Method Room Air 12/22/23 19:24 Weight last 48 hrs Weight 222 lb Weight 221 lb Physical Exam 2 Narrative: GENERAL: The patient is alert and oriented times three. Not in any acute distress. HEENT: No significant pallor, icterus or lymphadenopathy.Oral cavity: There are no mucous membrane lesions. NECK: Trachea appears to be central. No masses noted. No JVD or thyromegaly appreciated. RESPIRATORY: Chest is symmetrical. No intercostals muscle retraction or any accessory muscle activation. There is no chest wall tenderness. Breath sounds are heard bilaterally. No rales or rhonchi heard. No evidence of any consolidation. BREASTS: Deferred. HEART: The heart sounds are normal. No S3 or S4. Short systolic murmur in the left upper border. No diastolic murmurs. No pericardial rub ABDOMEN: No vessel pulsations or distention. No tenderness. No organomegaly appreciated. Bowel sounds are normally heard. : Deferred. RECTAL: Deferred. LYMPHATIC: No lymphadenopathy noted in the neck. EXTREMITIES: No edema or cyanosis. No clubbing. MUSCULOSKELETAL: No acute joint deformities or swelling SKIN: There are no significant rashes or ecchymosis NEUROPSYCHIATRIC: The patient is alert and oriented x3. Appears to be in a good mood. No tremors or rigidity noted. Data 12/22/23 15:45 12/22/23 15:45 Other Labs: Laboratory Last Values WBC 5.97 10^3/uL (3.29-11.43) 12/22/23 15:45 RBC 5.31 10^6/uL (3.85-5.65) 12/22/23 15:45 Hgb 15.60 g/dL (11.27-16.99) 12/22/23 15:45 Hct 46.1 % (37-53) 12/22/23 15:45 MCV 86.8 fl (82-101) 12/22/23 15:45 MCH 29.4 pg (27-33) 12/22/23 15:45 MCHC 33.8 g/dL (30-55) 12/22/23 15:45 RDW 12.4 % (12.1-15.1) 12/22/23 15:45 Plt Count 230 10^3/cmm (157-399) 12/22/23 15:45 MPV 9.1 fL (7.4-10.4) 12/22/23 15:45 Neut % (Auto) 44.2 % 12/22/23 15:45 Lymph % (Auto) 40.4 % 12/22/23 15:45 [place] % (Auto) 12.1 % 12/22/23 15:45 Eos % (Auto) 2.0 % 12/22/23 15:45 Baso % (Auto) 0.8 % 12/22/23 15:45 Neut # (Auto) 2.64 10^3/uL (1.8-7.7) 12/22/23 15:45 Lymph # (Auto) 2.4 10^3/uL (0.8-4.8) 12/22/23 15:45 [place] # (Auto) 0.7 10^3/uL (0.2-0.9) 12/22/23 15:45 Eos # (Auto) 0.1 10^3/uL (0.0-0.8) 12/22/23 15:45 Baso # (Auto) 0.1 10^3/uL (0.0-0.1) 12/22/23 15:45 Nucleated RBC % (auto) 0 % 12/22/23 15:45 Nucleated RBCs # 0.0 /100WBC 12/22/23 15:45 Sodium 139 mmol/L (136-145) 12/22/23 15:45 Potassium 4.3 mmol/L (3.5-5.1) 12/22/23 15:45 Chloride 101 mmol/L (98-107) 12/22/23 15:45 Carbon Dioxide 28 mmol/L (22-29) 12/22/23 15:45 Anion Gap 14.3 (5-19) 12/22/23 15:45 BUN 16 mg/dL (8-23) 12/22/23 15:45 Creatinine 1.1 mg/dL (0.7-1.2) 12/22/23 15:45 GFR Calculation Not Reportable 12/22/23 15:45 Glucose 100 mg/dL (65-115) 12/22/23 15:45 Calculated Osmolality 289 mOsm/kg (285-295) 12/22/23 15:45 Calcium 9.8 mg/dL (8.5-10.5) 12/22/23 15:45 Total Bilirubin 0.6 mg/dL (0.15-1.2) 12/22/23 15:45 AST 17 U/L (0-40) 12/22/23 15:45 ALT 19 U/L (0-41) 12/22/23 15:45 Alkaline Phosphatase 69 U/L (40-130) 12/22/23 15:45 Troponin T Baseline 167 ng/L (0-15) H* 12/22/23 15:45 Troponin T 120 Minute 177.4 ng/L (0-15) H 12/22/23 18:19 Delta Troponin T 10.4 ABS# (0-10) H* 12/22/23 18:19 Total Protein 7.1 g/dL (6.6-8.7) 12/22/23 15:45 Albumin 4.4 g/dL (3.5-5.2) 12/22/23 15:45 Globulin 2.7 g/dL (1.3-4.6) 12/22/23 15:45 Lipase 61 U/L (13-60) H 12/22/23 15:45 Other data: The EKG from today 100% AV paced rhythm. Further interpretation is not possible Myocardial perfusion imaging in August 2023 1. Myocardial perfusion imaging revealing a moderate to large area of moderate to severely decreased tracer uptake involving the inferior, inferolateral, inferoseptal and apical segments with subtle areas of reversibility suggesting extensive myocardial scarring in the distribution of all the 3 coronary arteries with a subtle areas of bret-infarction ischemia. 2. Diminished LV ejection fraction of 32%. 3. Multiple wall motion normalities as mentioned above 4. Moderately dilated LV cavity with an end-systolic volume of 121 ml. Compared to the study from 05/12/2022, there seems to be some infarct expansion and a decline in the LV ejection fraction Most recent cardiac catheterization in May 2023 * The left main is a short medium caliber vessel with no significant stenotic lesions. * The left anterior descending artery is an elongated vessel which appearsto wrap around the LV apex minimally. The proximal to the mid LAD was foundto have extensive stenting. There was a high-grade in-stent stenosis of around 80% in the mid LAD. Just distal to the stented segment, there was 60 to70% bret stent stenosis. The first diagonal vessel appears to be a relativelysmall caliber vessel with severe diffuse disease proximally with a high-grade ostial stenosis, possibly a jailed lesion. The distal left and descendingartery was found to have around 50% segmental narrowing. * The left circumflex artery is a medium caliber vessel which was found tohave a 30 to 40% diffuse irregular narrowing proximally. The first obtusemarginal branch is a relatively large vessel with multiple side branches.One of the branches were found to have around 60% narrowing at the ostium. * The right coronary artery is a medium caliber dominant vessel which wasfound to have a long stented area in the proximal to the mid segment. Thestent was found to be patent. There was an area of in-stent stenosis ofaround 50% proximally. The PLV branch of the artery was found to have [id number]% n stenosis distally. The distal artery appears to be bifurcating. At thebifurcation, there was 70 to 90% stenosis. The PDA branch was found to have mild diffuse intimal irregularities with no significant stenotic lesions. PCI Status: Urgent PCI Indication: Other Interventional Findings * Mid Left Anterior Descendin-80% stenosis treated with a MDT NC EUPHORA RX 3.53B50VW BALLOON, AB TREK 2.50X12 RX BALLOON, MDT R ARGENIS 3.5X30 ETHAN, and MDT NC EUPHORA RX 3.68H24AD BALLOON. 0% residual stenosis, STEVEN: 3 Echocardiogram in April 2023 Normal LV size with a borderline low ejection fraction of 71%. Hypokinetic basal inferolateral wall segment segment.Grade I/IV diastolic dysfunction (abnormal relaxation filling pattern), normal to mildly elevated filling pressures. Minimally thickened mitral valve. Thickened aortic valve. There is no pericardial effusion. Compared to the study from 01/11/2019, the wall motion abnormality appears to be new A&P Assessment and plan (1) Atherosclerotic heart disease of [place] coronary artery with unstable angina pectoris: Patient's symptoms has a history of unstable angina. Most likely he may have restenosis of the LAD lesions. He may be treated with a IV heparin, beta- hugo, aspirin, Plavix, nitrates and other symptomatic measures. He may be continued on the current medications. Qualifiers: [place] vs. transplanted heart: [place] heart Qualified Code(s): I25.110 - Atherosclerotic heart disease of [place] coronary artery with unstable angina pectoris (2) Non-ST elevation [place] (NSTEMI): Patient has features of a recent myocardial infarction with postinfarction angina. I may go ahead and do a limited 2D echocardiogram to evaluate the LV function and to rule out any other pathology. (3) Dyslipidemia: Will continue on the current medications. (4) HTN (hypertension): Will try to optimize his antihypertensive medications. Qualifiers: Hypertension type: essential hypertension Qualified Code(s): I10 - Essential (primary) hypertension (5) Pacemaker: The pacemaker function was found to be appropriate. Continue on the current monitoring schedule Plan Based on the clinical progress and the results of the above, further management decisions will be made. Patient requires a cardiac catheterization to further evaluate his coronary status and decide on further management. The need for the study was discussed with the patient. The risk of bleeding, hematoma, vascular injury, myocardial infarction, myocardial perforation, malignant cardiac arrhythmias ,CVA, renal failure and other concomitant complications were explained in detail. Patient and the family understood this well and consented to proceed. We may go ahead and do schedule the tests sometime tomorrow. Attestations 2 Medical Necessity Statement*: Patient requires continued hospital stay for close monitoring and further management Coding Level of Care Code 42604 Diagnoses Atherosclerosis of [place] coronary artery of [place] heart with unstable angina pectoris I25.110 [place] vs. transplanted heart: [place] heart Non-ST elevation [place] (NSTEMI) I21.4 Dyslipidemia E78.5 Essential hypertension I10 Hypertension type: essential hypertension Pacemaker Z95.0
[2023-12-22] MEDS: acetaminophen 325 mg Tablet 650 MG PO (20:33)
[2023-12-22 22:00] VITALS: PULSE 81
[2023-12-22 23:33] VITALS: BP 121/70; PULSE 59; RESP 12; TEMP 36.4; O2SAT 96
[2023-12-23] VITALS (7 sets, daily range): BP systolic 112–147; BP diastolic 58–84; PULSE 60–65; RESP 17–20; TEMP 36.6; O2SAT 92–95
[2023-12-23 00:10] LABS: Partial Thromboplastin Time 161.7 SECONDS (23.9-36.7)
--- NOTE | 2023-12-23 00:20 | PC.NURSE ---
PTT came back critical at 161.7, notified MD LUZMARIA gave orders to shut off for 4 hours and repeat PTT heparin drip shut off at 0015
[2023-12-23 04:00] LABS: Basophils # 0.1 10^3/uL (0.0-0.1); Basophils % 1.1 %; Eosinophils # 0.1 10^3/uL (0.0-0.8); Eosinophils % 2.5 %; Lymphocytes # 2.6 10^3/uL (0.8-4.8); Lymphocytes % 45.4 %; Mean Corpuscular HGB Conc 34.2 g/dL (30-55); Mean Corpuscular Hemoglobin 29.2 pg (27-33); Mean Corpuscular Volume 85.2 fl (82-101); Mean Platelet Volume 8.9 fL (7.4-10.4); Monocytes # 0.6 10^3/uL (0.2-0.9); Monocytes % 11.3 %; Neutrophils # 2.22 10^3/uL (1.8-7.7); Nucleated Red Blood Cells % 0 %; Platelet Count 203 10^3/cmm (157-399); Red Blood Count 5.28 10^6/uL (3.85-5.65); Red Cell Distribution Width 12.5 % (12.1-15.1); White Blood Count 5.68 10^3/uL (3.29-11.43)
[2023-12-23 04:17] LABS: Partial Thromboplastin Time 38.8 SECONDS (23.9-36.7)
[2023-12-23 04:25] LABS: Anion Gap 13.3 (5-19); Blood Urea Nitrogen 15 mg/dL (8-23); Calcium 9.3 mg/dL (8.5-10.5); Carbon Dioxide 27 mmol/L (22-29); Chloride 104 mmol/L (98-107); Creatinine Clr Calc Pharmacy 62.4979; Glucose 114 mg/dL (65-115); Osmolality Calculated 292 mOsm/kg (285-295); Potassium 4.3 mmol/L (3.5-5.1); Sodium 140 mmol/L (136-145)
--- NOTE | 2023-12-23 09:12 | PC.SOCIAL ---
IMM Update Pg. 2 of IMM updated and reviewed with patient, who verbalized understanding. Copy provided.
--- NOTE | 2023-12-23 09:20 | PC.CHAP ---
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 [] Patient/Family/Request visit [] Outpatient visit [] Follow-up visit [] Physician referral [] Code/Alert [x] Routine visit [] Staff referral [] Actively dying [] Patient sleeping [x] Family support [] [] Out of room [] Palliative care [] [] Receiving care in room [] Pre-surgical visit [] Trauma [] Long length of stay [] ICU visit [] Other: Relational/Emotional Strength [x] Patient feels connected with others/family/visitors/staff [] Distress [] Loneliness/isolation [] Abandonment Spirituality of Patient [x] Person of Betsey [] Attends Adventist of their Betsey [x] Believes in Prayer [] Reads Bible or Sikh materials [] There are Spiritual issues to be addressed Systems Technician Interventions [x] Prayer [x] Active listening [] Non-anxious presence [x] Spiritual/emotional support [] Crisis/trauma care [] Spiritual counseling [] Bereavement support [] Provided bereavement packet [] Provided Bible/devotional materials [] Provided toy/stuffed animal, coloring book to patient or family member [] Provided Communion [] Anointing/[place] [] Salvation [x] Completed spiritual assessment [] Other: Impact on Illness or Injury [] Angry [] Fearful [] Anxious [] Often cries [] Exhaustion [] Unable to work [] Unable to attend church [] Unable to walk/stand [] Unable to read [] Unable to drive [] Unable to eat/drink [] Unable to sleep [] Unable to be with family [] Patient intubated [] Other: Summary Time spent with patient 10 min
--- NOTE | 2023-12-23 09:39 | P.PN_ITS ---
Subjective 2 Subjective: Patient is feeling okay. Has not had any chest pain since last evening. Vital signs are remaining stable. No new arrhythmias on the monitor. Medications: Medication Review Details: Current Medications Acetaminophen (Acetaminophen 325 Mg Tablet) 650 mg PO Q6H PRN PRN Reason: MILD PAIN Last Admin: 12/22/23 20:33 Dose: 650 mg Aspirin (Aspirin 81 Mg Chew Tablet) 81 mg PO DAILY [facility] Atorvastatin Calcium (Atorvastatin 40 Mg Tablet) 80 mg PO DAILY [facility] Cetirizine HCl (Cetirizine 10 Mg Tablet) 10 mg PO DAILY [facility] Clopidogrel Bisulfate (Clopidogrel 75 Mg Tablet) 75 mg PO DAILY [facility] Cyanocobalamin (Cyanocobalamin 1,000 Mcg Tablet) 5,000 mcg PO DAILY [facility] Diphenhydramine HCl (Diphenhydramine 50 Mg Capsule) 50 mg PO ONCE ONE Stop: 12/23/23 12:01 Fluticasone Propionate (Fluticasone Nasal [place] 16gm Btl) 1 spray INTRANASAL BID PRN PRN Reason: ALLERGIES Furosemide (Furosemide 40 Mg Tablet) 40 mg PO DAILY [facility] Heparin Sodium (Porcine) (Heparin 5,000 Unit/Ml Inj 1 Ml) 0 unit IV PRN PRN; Protocol PRN Reason: Heparin weight-base protocol Last Admin: 12/22/23 17:24 Dose: 5,000 unit Heparin Sodium/Sodium Chloride (Heparin Drip) 25,000 unit in 500 mls @ 0 mls/hr IV .Q0M [facility]; Protocol Last Titration: 12/23/23 04:25 Dose: 13.97 unit/kg/hr, 28 mls/hr Nitroglycerin/Dextrose (Nitroglycerin Drip) 50 mg in 250 mls @ 0 mls/hr IV .Q0M [facility]; Protocol Last Admin: 12/22/23 17:40 Dose: 10 mcg/min, 3 mls/hr Sodium Chloride (Sodium Chloride 0.9%) 1,000 mls @ 50 mls/hr IV .Q20H ONE Stop: 12/24/23 07:59 Lisinopril (Lisinopril 20 Mg Tablet) 20 mg PO DAILY [facility] Metoprolol Tartrate (Metoprolol Tartrate 25 Mg Tablet) 25 mg PO BID [facility] Morphine Sulfate (Morphine 4 Mg/Ml Sdv 1 Ml) 2 mg IVP Q4H PRN PRN Reason: SEVERE PAIN Nitroglycerin (Nitroglycerin 0.4 Mg Sublingual Tablet) 0.4 mg SUBLINGUAL Q5M PRN PRN Reason: chest pain Non-Formulary Medication (Jvggxhvfrfa-Djahawlib-Lma C-Mn) 1 cap PO DAILY [facility] Non-Formulary Medication (Saw Phil[place]) 450 mg PO DAILY [facility] Ondansetron HCl (Ondansetron 2 Mg/Ml Sdv 2 Ml) 4 mg IVP Q6H PRN PRN Reason: NAUSEA AND VOMITING Pantoprazole Sodium (Pantoprazole Dr 40 Mg Tablet) 40 mg PO DAILY [facility] Ranolazine (Ranolazine (12hr) 500 Mg Tablet) 500 mg PO BID [facility] Tamsulosin HCl (Tamsulosin 0.4 Mg Capsule) 0.4 mg PO DAILY PRN PRN Reason: Urinary Retention Vitals/I&O/Wt Last Vital Signs Temp 97.8 F 12/23/23 08:00 Pulse 60 12/23/23 08:00 Resp 20 H 12/23/23 08:00 BP 147/84 12/23/23 08:00 Pulse Ox 93 12/23/23 08:00 O2 Del Method Room Air 12/23/23 08:00 12/22/23 12/23/23 12/23/23 22:59 06:59 14:59 Intake Total 240 / 240 185.262 / 425.262 Output Total 550 / 550 Balance 240 / 240 -364.738 / -124.738 Weight last 48 hrs Weight 221 lb 6 oz Weight 222 lb Weight 221 lb Physical Exam 2 Narrative: GENERAL: The patient is alert and oriented times three. Not in any acute distress. HEENT: No significant pallor, icterus or lymphadenopathy.Oral cavity: There are no mucous membrane lesions. NECK: Trachea appears to be central. No masses noted. No JVD or thyromegaly appreciated. RESPIRATORY: Chest is symmetrical. No intercostals muscle retraction or any accessory muscle activation. There is no chest wall tenderness. Breath sounds are heard bilaterally. No rales or rhonchi heard. No evidence of any consolidation. BREASTS: Deferred. HEART: The heart sounds are normal. No S3 or S4. Short systolic murmur in the left upper border. No diastolic murmurs. No pericardial rub ABDOMEN: No vessel pulsations or distention. No tenderness. No organomegaly appreciated. Bowel sounds are normally heard. : Deferred. RECTAL: Deferred. LYMPHATIC: No lymphadenopathy noted in the neck. EXTREMITIES: No edema or cyanosis. No clubbing. MUSCULOSKELETAL: No acute joint deformities or swelling SKIN: There are no significant rashes or ecchymosis NEUROPSYCHIATRIC: The patient is alert and oriented x3. Appears to be in a good mood. No tremors or rigidity noted. Data 12/23/23 03:54 12/23/23 03:54 Other Labs: Laboratory Last Values WBC 5.68 10^3/uL (3.29-11.43) 12/23/23 03:54 RBC 5.28 10^6/uL (3.85-5.65) 12/23/23 03:54 Hgb 15.40 g/dL (11.27-16.99) 12/23/23 03:54 Hct 45.0 % (37-53) 12/23/23 03:54 MCV 85.2 fl (82-101) 12/23/23 03:54 MCH 29.2 pg (27-33) 12/23/23 03:54 MCHC 34.2 g/dL (30-55) 12/23/23 03:54 RDW 12.5 % (12.1-15.1) 12/23/23 03:54 Plt Count 203 10^3/cmm (157-399) 12/23/23 03:54 MPV 8.9 fL (7.4-10.4) 12/23/23 03:54 Neut % (Auto) 39.0 % 12/23/23 03:54 Lymph % (Auto) 45.4 % 12/23/23 03:54 [place] % (Auto) 11.3 % 12/23/23 03:54 Eos % (Auto) 2.5 % 12/23/23 03:54 Baso % (Auto) 1.1 % 12/23/23 03:54 Neut # (Auto) 2.22 10^3/uL (1.8-7.7) 12/23/23 03:54 Lymph # (Auto) 2.6 10^3/uL (0.8-4.8) 12/23/23 03:54 [place] # (Auto) 0.6 10^3/uL (0.2-0.9) 12/23/23 03:54 Eos # (Auto) 0.1 10^3/uL (0.0-0.8) 12/23/23 03:54 Baso # (Auto) 0.1 10^3/uL (0.0-0.1) 12/23/23 03:54 Nucleated RBC % (auto) 0 % 12/23/23 03:54 Nucleated RBCs # 0.0 /100WBC 12/23/23 03:54 APTT 38.8 SECONDS (23.9-36.7) H D 12/23/23 03:54 Sodium 140 mmol/L (136-145) 12/23/23 03:54 Potassium 4.3 mmol/L (3.5-5.1) 12/23/23 03:54 Chloride 104 mmol/L (98-107) 12/23/23 03:54 Carbon Dioxide 27 mmol/L (22-29) 12/23/23 03:54 Anion Gap 13.3 (5-19) 12/23/23 03:54 BUN 15 mg/dL (8-23) 12/23/23 03:54 Creatinine 1.1 mg/dL (0.7-1.2) 12/23/23 03:54 GFR Calculation Not Reportable 12/23/23 03:54 Glucose 114 mg/dL (65-115) 12/23/23 03:54 Calculated Osmolality 292 mOsm/kg (285-295) 12/23/23 03:54 Calcium 9.3 mg/dL (8.5-10.5) 12/23/23 03:54 Total Bilirubin 0.6 mg/dL (0.15-1.2) 12/22/23 15:45 AST 17 U/L (0-40) 12/22/23 15:45 ALT 19 U/L (0-41) 12/22/23 15:45 Alkaline Phosphatase 69 U/L (40-130) 12/22/23 15:45 Troponin T Baseline 167 ng/L (0-15) H* 12/22/23 15:45 Troponin T 120 Minute 177.4 ng/L (0-15) H 12/22/23 18:19 Delta Troponin T 10.4 ABS# (0-10) H* 12/22/23 18:19 Troponin T Hi Sens 6Hr 172.0 ng/L (0-15) H 12/22/23 22:03 Troponin T Hi Sens 6Hr Delta 5.0 ng/L (0-12) 12/22/23 22:03 Total Protein 7.1 g/dL (6.6-8.7) 12/22/23 15:45 Albumin 4.4 g/dL (3.5-5.2) 12/22/23 15:45 Globulin 2.7 g/dL (1.3-4.6) 12/22/23 15:45 Lipase 61 U/L (13-60) H 12/22/23 15:45 A&P Assessment and plan (1) Atherosclerotic heart disease of [place] coronary artery with unstable angina pectoris: Patient's symptoms has a history of unstable angina. Most likely he may have restenosis of the LAD lesions. He may be treated with a IV heparin, beta- hugo, aspirin, Plavix, nitrates and other symptomatic measures. He may be continued on the current medications. Patient is currently remaining stable. Scheduled for the cardiac colorization this afternoon. Qualifiers: [place] vs. transplanted heart: [place] heart Qualified Code(s): I25.110 - Atherosclerotic heart disease of [place] coronary artery with unstable angina pectoris (2) Non-ST elevation MT (NSTEMI): Patient has features of a recent myocardial infarction with postinfarction angina. I may go ahead and do a limited 2D echocardiogram to evaluate the LV function and to rule out any other pathology. Echocardiogram is still pending. Will continue on the current management. (3) Dyslipidemia: Will continue on the current medications. (4) HTN (hypertension): Will try to optimize his antihypertensive medications. Qualifiers: Hypertension type: essential hypertension Qualified Code(s): I10 - Essential (primary) hypertension (5) Pacemaker: The pacemaker function was found to be appropriate. Continue on the current monitoring schedule Plan Cardiac catheterization this afternoon. The risk of bleeding, hematoma, vascular injury, myocardial infarction, myocardial perforation, malignant cardiac arrhythmias ,CVA, renal failure and other concomitant complications were explained in detail. Patient understood this well and consented to proceed. Based on the angiogram findings, further recommendations will be made Attestations 2 Medical Necessity Statement*: Patient requires continued hospital stay for close monitoring and further management Coding Level of Care Code 27729 Diagnoses Atherosclerosis of [place] coronary artery of [place] heart with unstable angina pectoris I25.110 [place] vs. transplanted heart: [place] heart Non-ST elevation MT (NSTEMI) I21.4 Dyslipidemia E78.5 Essential hypertension I10 Hypertension type: essential hypertension Pacemaker Z95.0
--- NOTE | 2023-12-23 09:42 | USCV_ITS ---
Ashish Armijo Age: 83 Gender: M : 1940 Exam Date: 12/23/2023 11:09 Ordering Phys: Karolina Lam MD ([email or web address]) Technologist: CT Exam Location[place] [facility] [place]ication: BP: 112 / 78 HR: Rhythm: Sinus Technical Quality: Adequate MEASUREMENTS (Male / Female) Normal Values 2D ECHO LVOT Diameter 2.5 cm LV Ejection Fraction MOD 2C 27.6 % LV Ejection Fraction 2C AL 29.0 % LA Diameter 3.9 cm RA Systolic Volume 4C AL 46.1 ml RA Systolic Volume 4C MOD 43.2 ml Aorta at Sinotubular Diameter 3.2 cm M-MODE LA Ao Ratio MM 1.1 AV Cusp Separation MM 2.2 cm FINDINGS Left Ventricle Severe diffuse hypokinesia of the left ventricle, most of the septum, anteroseptum and inferior wall segments. The overall LV ejection fraction around 28% Right Ventricle The right ventricle is normal in size and function. Right Atrium The right atrium is normal in size. Left Atrium The left atrium is normal in size. Mitral Valve Thickened mitral valve. Aortic Valve Thickened aortic valve. Tricuspid Valve No gross abnormalities Pulmonic Valve No gross abnormalities Pericardium Normal pericardium without effusion. Aorta Normal ascending aorta dimension. IVC Inferior vena cava not visualized. CONCLUSIONS Severe diffuse hypokinesia of the left ventricle, most of the septum, anteroseptum and inferior wall segments. The overall LV ejection fraction around 28%. Thickened mitral valve. Thickened aortic valve. There is no pericardial effusion. There are no intracardiac masses. Compared to the study from 04/14/2023, there is a marked drop in the LV ejection fraction from 71% to 28%. Dr Karolina Lam MD [facility] (Electronically Signed) Final Date: 23 December 2023 11:58 S
[2023-12-23] MEDS: cyanocobalamin 1,000 mcg Tablet 5000 MCG PO (11:03)
[2023-12-23] MEDS: atorvastatin 40 mg Tablet 80 MG PO (11:04)
[2023-12-23] MEDS: metoprolol tartrate 25 mg Tablet PO ×2 (11:04→17:47)
[2023-12-23] MEDS: ranolazine (12HR) 500 mg Tablet PO ×2 (11:04→17:47)
[2023-12-23] MEDS: cetirizine 10 mg Tablet PO (11:04)
[2023-12-23] MEDS: lisinopril 20 mg Tablet PO (11:04)
[2023-12-23] MEDS: clopidogrel 75 mg Tablet PO (11:04)
[2023-12-23] MEDS: aspirin 81 mg Chew Tablet PO (11:05)
[2023-12-23] MEDS: pantoprazole DR 40 mg Tablet PO (11:05)
[2023-12-23 11:58] LABS: Partial Thromboplastin Time 80.5 SECONDS (23.9-36.7)
[2023-12-23] MEDS: sodium chloride 0.9% 1,000 ML 50 ML IV (12:21)
[2023-12-23] MEDS: diphenhydrAMINE 50 mg Capsule PO (12:21)
--- NOTE | 2023-12-23 12:42 | W.PM.OPSUD ---
Surgery/Procedure H&P Update DATE OF PROCEDURE: December 23, 2023 DATE H&P PERFORMED: 12/22/23 H&P UPDATE INFORMATION: I have reviewed H&P completed within last 30 days, I have examined patient prior to procedure and No changes to prior documentation PREOP DIAGNOSIS: ASHD PRIMARY INDICATION FOR PROCEDURE: Unstable angina /non-ST elevation myocardial infarction/cardiomyopathy PLANNED PROCEDURE: Left heart catheterization with a left and right coronary angiogram and possible PCI PATIENT REASSESSED PRIOR TO SEDATION, WITH NO CHANGE NOTED: Yes PHYSICAL EXAM: alert, oriented x 3 and clear to auscultation bilaterally AIRWAY EVAL/ANESTHESIA PLAN: normal airway, see other exam findings, ASA IV, Monitored Anesthesia, Local Anesthesia, Risks, benefits & alternatives of sedation and/or procedure discussed and Patient agrees to continue as planned
--- NOTE | 2023-12-23 13:20 | XACV_ITS ---
Exam Room: [facility] Ht: 183 cm Wt: 100 kg BSA: 2.28 m2 Gender: Male : 1940 Any Known Allergies: Penicillins Exam Priority: Routine Procedure(s): Procedure Description: Diagnostic procedure Procedure Description: Left Heart Catheterization Procedure Description: Miscellaneous Procedure Description: ACT Procedure Description: Coronary Angiography Genaro SIERRA; Diagnostic Cath Status: Urgent Diagnostic Findings * The left main is a short medium caliber vessel which bifurcates to the left under descending artery and circumflex artery. * The left and descending artery is a medium caliber vessel which appears to wraparound the LV apex medially. There is a long stented area involving the proximal and mid segment of the artery. There is a high-grade in-stent stenosis of around 95% in the proximal LAD. Right after the first septal senior boiler operator, there is another high-grade in-stent stenosis of around 80%. The distal artery was found to have a tubular narrowing of around 40% mid to the LV apex. No other significant stenotic lesions were noted. The first diagonal branch is a likely small caliber vessel which has an ostial jailed lesion of around 90%. * The circumflex artery is a medium caliber nondominant vessel which was found to have 30 to 40% diffuse irregular narrowing proximally. No other significant stenotic lesions were noted in this artery. * Right coronary artery medium caliber dominant vessel which bifurcates distally into the PLV and PDA branches. The PLV branch was found to have a distal around 50% stenosis. It bifurcates terminally and one of the bifurcation branches was found to have around 70 to 80% lesion. The PDA branch was found to have minimal tubular narrowing proximally.. Conclusions 1. 83-year-old white male with a history of atherosclerotic heart disease, status post multiple coronary interventions, presenting with unstable anginal symptoms and features of a non-ST elevation myocardial infarction. His echocardiogram revealed a significant drop in the LV ejection fraction from 71% (in April of last year )to 28%. For further evaluation of his coronary status, a cardiac catheterization was recommended.. 2. The patient underwent left heart catheterization with left and coronary angiogram today. The findings are as follows. Extremely short left main. High-grade, in-stent, tandem lesions of 95% and 80% in the proximal and mid left anterior descending artery. I high-grade ostial jailed lesion in the first diagonal branch, likely small caliber vessel. Mild disease in circumflex artery. High-grade lesion in one of the branches of the RPLV. LVEDP of 19 mmHg. 3. I discussed and reviewed the cardiac catheterization data with the Dr. Keen. Because of the multiple stents in the proximal to mid LAD, and also the fact that the patient developed restenosis within few months of the last intervention, it was thought to be appropriate to consider surgical revascularization. The patient's family is agreeable for this. After discussing with the patient, a final decision will be made. Interventional RX Recommendation: CABG LV EDP: 19 mmHg Left Ventriculography Findings: * LV gram was not performed. The LV ejection fraction was 28% by echocardiogram. The LVEDP was 19 mmHg. Pressures Phase:Rest AO : 78 / 51 ( 60 ) @ 2:51:00 PM 101 / 64 ( 79 ) @ 3:01:00 PM 102 / 49 ( 73 ) @ 3:01:00 PM LV : 103 / 8 / 20 @ 3:01:00 PM 102 / 10 / 19 @ 3:01:00 PM Valves Phase:DefaultPhase AV : 2.0 @ 2:23:30 PM 2.0 @ 2:23:30 PM AV Mean Gradient: 10.0 @ 2:23:30 PM 10.0 @ 2:23:30 PM Clinical Evaluation EBL: 5mL-10mL Procedural Details Pre-Procedure Time Out. Identified patient by full name and date of as verbalized by the patient/guarantor. Does the consent match the physician's order: Yes. Accurate & Complete Informed Consent: Yes. Inpatient/Outpatient History & Physical on Chart: Yes. If H&P is completed, is and addenduem needed: No; If yes, is the addendum complete: N/A. Visualize and Verify Site with Patient/Guarantor: N/A. Relevant Radiology Images available: Yes. Pre-op teaching completed and patient verbalized understanding. The risks, benefits, and alternatives of sedation and/or procedure were discussed by physician. The patient agrees to continue. Procedure started. [facility] Clinical Fraility Score: 4: Vulnerable. [employer] Customer Service Indications: Other. Chest Pain Symptom Assessment: Atypical Angina. Correct patient, site and procedure confirmed by cath team. PERRLA. 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 Lungs clear x 5 lobes. IV Site on Arrival: 18 gauge in the left anticubital. IV Fluids: 0.9% NaCl at KVO. 0 mL infused prior to recyclable products sorter. Oxygen started at 2liters/min via nasal canula. right groin was prepped with chloroprep then draped in the usual sterile fashion. right radial was prepped with chloroprep then draped in the usual sterile fashion. Baseline sample Acquired. HR: 65 BPM. Current Diagnosis : NSTEMI. Physician arrived. Physician scrubbed in. Immediate Pre-Procedure Time Out. Correct Patient: Yes; Correct Procedure: Yes; Correct Site: Yes; Correct Patient Position: Yes; Correct Supplies: Yes; Dried Flammable Prep: Yes; Blood Products Available: Yes;. Lidocaine 1% infiltrated to the right radial. Arterial access obtained. A 5 angolan Yung catheter in over wire. Multiple views taken of left coronary artery. Catheter redirected to the RCA. Catheter removed over the exchange wire. A 5 angolan JR4 catheter in over wire. ACT drawn. Results 214 seconds. Therapeutic limits - pre-heparin administration 90-150 seconds and monitoring heparin during a vascular procedure >250 seconds. Multiple views taken of right coronary artery. EDP Sample taken: LV 103/8,20; HR: 60 BPM; SpO2: 94%. Pullback taken: LV 102/10,19; AO 101/64(79); Mean: 10mmHg, Peak to Peak: 2mmHg, SEP: 6sec/min; HR: 60 BPM; SpO2: 94%. Catheter removed over the exchange wire. Dr. Lam scrubbed out. Dr. Lam and Dr. Keen talking to the family. Vital chart was stopped. A TR Band was successful obtaining hemostatsis at the Right Radial artery insertion site. PERRLA. 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 No VTE prophylaxis required. Medication's Wasted: Lidocaine 1% = 17 mL. Medication's Wasted: Heparin = 6000 units. Medication's Wasted: Nitro = 49.8 mg. Total IV fluids: 52 mL. Post-op diagnosis: CAD. Complications: None. Estimated blood loss: 5mL-10mL. Responsiveness - Normal response to verbal stimuli; alert and oriented, PERRLA. Airway - Unaffected, no intervention required; spontaneous ventilation. Circulation: W/N/L, pulses unchanged. Nausea/Vomiting: No. Procedure completed. Patient transferred by wheelchair to 1st floor. Access Site Site: Right Radial artery Sheath Size: 6 Fr Hemostasis Method: TR Band Hemostasis Success: Successful Procedure Medications Start: 1:32 PM Stop: 1:32 PM Medication: Fentanyl Amount: 50 mcg Route: I.V. Start: 1:44 PM Stop: 1:44 PM Medication: Versed Amount: 1 mg Route: I.V. Start: 1:44 PM Stop: 1:44 PM Medication: Fentanyl Amount: 50 mcg Route: I.V. Start: 1:44 PM Stop: 1:44 PM Medication: Versed Amount: 1 mg Route: I.V. Start: 1:48 PM Stop: 1:48 PM Medication: Verapamil Amount: 5 mg Route: I.A. Start: 1:48 PM Stop: 1:48 PM Medication: Nitrogylcerin Amount: 200 mcg Route: I.A. I, the attending physician, have reviewed and verified all procedure medications. Yes, all medications given per verbal order History/Risk Factors Hypertension: Yes Dyslipidemia: No Peripheral Arterial Disease (PAD): No Myocardial Infarction (NE): No Obesity: No Renal Disease: No Prior Interventions PCI: Yes CABG: No Valve Surgery: No Date of PCI: 05/31/2023 Report Signatures Finalized by Dr Karolina Lam MD [facility] on 12/23/2023 02:53 PM
[2023-12-23] MEDS: FUROsemide 40 mg Tablet PO (17:47)
[2023-12-24] VITALS: BP 102/51; PULSE 60; RESP 18; O2SAT 93
[2023-12-24 04:00] VITALS: BP 129/78; PULSE 60; RESP 14; TEMP 36.4; O2SAT 93
[2023-12-24 04:14] VITALS: PULSE 60
[2023-12-24 04:17] LABS: Platelet Count 219 10^3/cmm (157-399)
[2023-12-24 07:03] VITALS: BP 124/71; PULSE 63; RESP 14; TEMP 36.4; O2SAT 95
[2023-12-24] MEDS: cyanocobalamin 1,000 mcg Tablet 5000 MCG PO (08:30)
[2023-12-24] MEDS: atorvastatin 40 mg Tablet 80 MG PO (08:30)
[2023-12-24] MEDS: lisinopril 20 mg Tablet PO (08:30)
[2023-12-24] MEDS: metoprolol tartrate 25 mg Tablet PO (08:31)
[2023-12-24] MEDS: cetirizine 10 mg Tablet PO (08:31)
[2023-12-24] MEDS: clopidogrel 75 mg Tablet PO (08:31)
[2023-12-24] MEDS: ranolazine (12HR) 500 mg Tablet PO (08:31)
[2023-12-24] MEDS: pantoprazole DR 40 mg Tablet PO (08:31)
[2023-12-24] MEDS: FUROsemide 40 mg Tablet PO (08:31)
[2023-12-24] MEDS: aspirin 81 mg Chew Tablet PO (08:31)
[2023-12-24 11:32] VITALS: BP 103/82; PULSE 62; RESP 16; TEMP 36.4; O2SAT 93
--- NOTE | 2023-12-24 14:46 | PC.NURSE ---
Patient left with [facility] ambulance headed to [facility] in [place]. Report called at [id number] to 3rd floor room 345-1 at [facility]. Patient condition at time of transfer was stable, all vitals within normal limits. with patient at bedside.
--- NOTE | 2023-12-24 14:57 | PM.TDS ---
Transfer Summary Providers Date of Admission: 12/22/23 16:49 Date of Discharge/Transfer: 12/24/23 Attending Provider at Admission: Karolina Lam MD Attending Provider at Transfer: Karolina Lam MD Primary Care Provider: Angelika Johnson Transfer Plans: Anticipated date of transfer: 12/24/23. Diagnoses at Discharge Discharge Diagnosis (1) Atherosclerotic heart disease of [place] coronary artery with unstable angina pectoris: Status: Acute Qualifiers: [place] vs. transplanted heart: [place] heart Qualified Code(s): I25.110 - Atherosclerotic heart disease of [place] coronary artery with unstable angina pectoris (2) Non-ST elevation ME (NSTEMI): Status: Acute (3) Dyslipidemia: Status: Acute (4) HTN (hypertension): Status: Acute Qualifiers: Hypertension type: essential hypertension Qualified Code(s): I10 - Essential (primary) hypertension (5) Pacemaker: Status: Acute Permanent problem details: Medtronic dual chamber 04/15/23 Reason for Visit Reason for Visit dr reza, chest pain Brief History: Harris has known coronary artery disease. He has had stents placed to his LAD in the remote past. Last May he had stents within the stents of the LAD for recurrent unstable angina. He was seeing Dr. Lam in the office 2 days ago when he told Dr. Lam about recurrent angina. He was placed in the hospital for purposes of coronary angiography and reassessment. Hospital Course Hospital Course Repeat angiography yesterday revealed restenosis of the stents of the LAD in 2 areas both greater than 95% stenosis. There is also some disease in the distal right coronary artery which is stable and chronic. Because of the situation where there are already stents within the stents in the LAD and that he has developed significant left ventricular dysfunction as a result of this it was thought better for him to have open heart surgery. Dr. Lam contacted the surgeons at [facility] in [place] and he was excepted there. He was transferred today by ambulance. Physical Exam Narrative: GENERAL: In general he looks and feels well HEENT: Exam within normal limits. NECK: Supple without jugular vein distention. The carotid upstroke is normal without bruits. BACK: Exam normal. LUNGS: Clear. HEART: Regular rate and rhythm. ABDOMEN: Benign without organomegaly or tenderness. EXTREMITIES: No edema. NEUROLOGIC: Exam normal. SKIN: Unremarkable. 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 echo limited [id number] Routine Ultrasound 12/23/23 09:42 Completed Laboratory Last Values WBC 5.68 10^3/uL (3.29-11.43) 12/23/23 03:54 RBC 5.28 10^6/uL (3.85-5.65) 12/23/23 03:54 Hgb 15.40 g/dL (11.27-16.99) 12/23/23 03:54 Hct 45.0 % (37-53) 12/23/23 03:54 MCV 85.2 fl (82-101) 12/23/23 03:54 MCH 29.2 pg (27-33) 12/23/23 03:54 MCHC 34.2 g/dL (30-55) 12/23/23 03:54 RDW 12.5 % (12.1-15.1) 12/23/23 03:54 Plt Count 219 10^3/cmm (157-399) 12/24/23 03:39 MPV 8.9 fL (7.4-10.4) 12/23/23 03:54 Neut % (Auto) 39.0 % 12/23/23 03:54 Lymph % (Auto) 45.4 % 12/23/23 03:54 Lyman % (Auto) 11.3 % 12/23/23 03:54 Eos % (Auto) 2.5 % 12/23/23 03:54 Baso % (Auto) 1.1 % 12/23/23 03:54 Neut # (Auto) 2.22 10^3/uL (1.8-7.7) 12/23/23 03:54 Lymph # (Auto) 2.6 10^3/uL (0.8-4.8) 12/23/23 03:54 Lyman # (Auto) 0.6 10^3/uL (0.2-0.9) 12/23/23 03:54 Eos # (Auto) 0.1 10^3/uL (0.0-0.8) 12/23/23 03:54 Baso # (Auto) 0.1 10^3/uL (0.0-0.1) 12/23/23 03:54 Nucleated RBC % (auto) 0 % 12/23/23 03:54 Nucleated RBCs # 0.0 /100WBC 12/23/23 03:54 APTT 80.5 SECONDS (23.9-36.7) H D 12/23/23 09:20 Sodium 140 mmol/L (136-145) 12/23/23 03:54 Potassium 4.3 mmol/L (3.5-5.1) 12/23/23 03:54 Chloride 104 mmol/L (98-107) 12/23/23 03:54 Carbon Dioxide 27 mmol/L (22-29) 12/23/23 03:54 Anion Gap 13.3 (5-19) 12/23/23 03:54 BUN 15 mg/dL (8-23) 12/23/23 03:54 Creatinine 1.1 mg/dL (0.7-1.2) 12/23/23 03:54 GFR Calculation Not Reportable 12/23/23 03:54 Glucose 114 mg/dL (65-115) 12/23/23 03:54 Calculated Osmolality 292 mOsm/kg (285-295) 12/23/23 03:54 Calcium 9.3 mg/dL (8.5-10.5) 12/23/23 03:54 Total Bilirubin 0.6 mg/dL (0.15-1.2) 12/22/23 15:45 AST 17 U/L (0-40) 12/22/23 15:45 ALT 19 U/L (0-41) 12/22/23 15:45 Alkaline Phosphatase 69 U/L (40-130) 12/22/23 15:45 Troponin T Baseline 167 ng/L (0-15) H* 12/22/23 15:45 Troponin T 120 Minute 177.4 ng/L (0-15) H 12/22/23 18:19 Delta Troponin T 10.4 ABS# (0-10) H* 12/22/23 18:19 Troponin T Hi Sens 6Hr 172.0 ng/L (0-15) H 12/22/23 22:03 Troponin T Hi Sens 6Hr Delta 5.0 ng/L (0-12) 12/22/23 22:03 Total Protein 7.1 g/dL (6.6-8.7) 12/22/23 15:45 Albumin 4.4 g/dL (3.5-5.2) 12/22/23 15:45 Globulin 2.7 g/dL (1.3-4.6) 12/22/23 15:45 Lipase 61 U/L (13-60) H 12/22/23 15:45 Recent Clincial Data Last Vital Signs Temp 97.6 F 12/24/23 11:32 Pulse 62 12/24/23 11:32 Resp 16 12/24/23 11:32 BP 103/82 12/24/23 11:32 Pulse Ox 93 12/24/23 11:32 O2 Del Method Room Air 12/24/23 11:32 Vital Signs Temp Pulse Resp BP Pulse Ox O2 Del Method 12/24/23 11:32 97.6 F 62 16 103/82 93 Room Air 12/24/23 07:03 97.5 F L 63 14 124/71 95 Room Air 12/24/23 04:14 60 12/24/23 04:00 97.5 F L 60 14 129/78 93 Room Air Intake & Output/Weight 12/22/23 12/23/23 12/24/23 12/25/23 06:59 06:59 06:59 06:59 Intake Total 425.262 / 257.228 9170.738 / 2744.738 480 / 480 Output Total 550 / 550 550 / 550 Balance -124.738 / -242.171 7483.738 / 2194.738 480 / 480 Weight 221 lb 6 oz 218 lb 3.2 oz Procedures Performed Coronary angiography Vitals Last Vital Signs Temp 97.6 F 12/24/23 11:32 Pulse 62 12/24/23 11:32 Resp 16 12/24/23 11:32 BP 103/82 12/24/23 11:32 Pulse Ox 93 12/24/23 11:32 O2 Del Method Room Air 12/24/23 11:32 TS Medications Medications Discontinued Medications Acetaminophen (Acetaminophen 325 Mg Tablet) 650 mg PO Q6H PRN PRN Reason: MILD PAIN Last Admin: 12/22/23 20:33 Dose: 650 mg Al Hydrox/Mg Hydrox/Simethicone (Kigz-Lhq-Fczpzoofi-Alexander 30 Ml Udc) 30 ml PO Q15M PRN PRN Reason: INDIGESTION Aspirin (Aspirin 81 Mg Chew Tablet) 81 mg PO DAILY [facility] Last Admin: 12/24/23 08:31 Dose: 81 mg Atorvastatin Calcium (Atorvastatin 40 Mg Tablet) 80 mg PO DAILY [facility] Last Admin: 12/24/23 08:30 Dose: 80 mg Atropine Sulfate (Atropine 1 Mg/Ml Sdv 1 Ml) 0.5 mg IVP PRN PRN PRN Reason: Symptomatic bradycardia Cetirizine HCl (Cetirizine 10 Mg Tablet) 10 mg PO DAILY [facility] Last Admin: 12/24/23 08:31 Dose: 10 mg Clopidogrel Bisulfate (Clopidogrel 75 Mg Tablet) 75 mg PO DAILY [facility] Last Admin: 12/24/23 08:31 Dose: 75 mg Cyanocobalamin (Cyanocobalamin 1,000 Mcg Tablet) 5,000 mcg PO DAILY [facility] Last Admin: 12/24/23 08:30 Dose: 5,000 mcg Diphenhydramine HCl (Diphenhydramine 50 Mg Capsule) 50 mg PO ONCE ONE Stop: 12/22/23 20:46 Last Admin: 12/22/23 21:36 Dose: Not Given Diphenhydramine HCl (Diphenhydramine 50 Mg Capsule) 50 mg PO ONCE ONE Stop: 12/23/23 12:01 Last Admin: 12/23/23 12:21 Dose: 50 mg Fentanyl (Fentanyl 50 Mcg/Ml Inj 2ml) Confirm Administered Dose 100 mcg .ROUTE .STK-MED ONE Stop: 12/23/23 13:03 Fluticasone Propionate (Fluticasone Nasal [place] 16gm Btl) 1 spray INTRANASAL BID PRN PRN Reason: ALLERGIES Furosemide (Furosemide 40 Mg Tablet) 40 mg PO DAILY [facility] Last Admin: 12/24/23 08:31 Dose: 40 mg Heparin Sodium (Porcine) (Heparin 5,000 Unit/Ml Inj 1 Ml) 0 unit IV PRN PRN; Protocol PRN Reason: Heparin weight-base protocol Last Admin: 12/22/23 17:24 Dose: 5,000 unit Heparin Sodium (Porcine) (Heparin 5,000 Unit/Ml Inj 1 Ml) Confirm Administered Dose 5,000 unit .ROUTE .STK-MED ONE Stop: 12/23/23 11:34 Heparin Sodium (Porcine) (Heparin 5,000 Unit/Ml Inj 1 Ml) Confirm Administered Dose 5,000 unit .ROUTE .STK-MED ONE Stop: 12/23/23 13:03 Heparin Sodium/Sodium Chloride (Heparin Drip) 25,000 unit in 500 mls @ 0 mls/hr IV .Q0M [facility]; Protocol Last Titration: 12/23/23 19:33 Dose: Infused Nitroglycerin/Dextrose (Nitroglycerin Drip) 50 mg in 250 mls @ 0 mls/hr IV .Q0M [facility]; Protocol Last Titration: 12/23/23 19:33 Dose: Infused Sodium Chloride (Sodium Chloride 0.9%) 1,000 mls @ 50 mls/hr IV .Q20H ONE Stop: 12/23/23 16:44 Last Admin: 12/22/23 21:37 Dose: Not Given Sodium Chloride (Sodium Chloride 0.9%) 1,000 mls @ 50 mls/hr IV .Q20H ONE Stop: 12/24/23 07:59 Last Infusion: 12/23/23 19:33 Dose: Infused Lidocaine HCl (Xylocaine) Confirm Administered Dose 20 mls @ as directed .ROUTE .Paper Hunter-MED ONE Stop: 12/23/23 13:03 Lisinopril (Lisinopril 20 Mg Tablet) 20 mg PO DAILY [facility] Last Admin: 12/24/23 08:30 Dose: 20 mg Magnesium Hydroxide (Magnesium Hydroxide 30 Ml Udc) 30 ml PO DAILY PRN PRN Reason: CONSTIPATION Metoprolol Tartrate (Metoprolol Tartrate 25 Mg Tablet) 25 mg PO BID [facility] Last Admin: 12/24/23 08:31 Dose: 25 mg Midazolam HCl (Midazolam 1 Mg/Ml Inj 2 Ml) Confirm Administered Dose 2 mg .ROUTE .Paper Hunter-MED ONE Stop: 12/23/23 13:03 Morphine Sulfate (Morphine 4 Mg/Ml Sdv 1 Ml) 2 mg IVP Q4H PRN PRN Reason: SEVERE PAIN Naloxone HCl (Naloxone 0.4 Mg/Ml Sdv) 0.1 mg IVP Q2M PRN PRN Reason: RESPIRATORY RATE < 8/MIN Nitroglycerin (Nitroglycerin 0.4 Mg Sublingual Tablet) 0.4 mg SUBLINGUAL Q5M PRN PRN Reason: chest pain Nitroglycerin (Nitroglycerin 5 Mg/Ml Sdv 10 Ml) Confirm Administered Dose 50 mg .ROUTE .STPaper Hunter-MED ONE Stop: 12/23/23 13:03 Nitroglycerin (Nitroglycerin 0.4 Mg Sublingual Tablet) 0.4 mg SUBLINGUAL Q5M PRN PRN Reason: CHEST PAIN Non-Formulary Medication (Plivsisigzd-Ufapudtup-Tku C-Mn) 1 cap PO DAILY [facility] Last Admin: 12/24/23 08:33 Dose: Not Given Non-Formulary Medication (Saw Anthon) 450 mg PO DAILY [facility] Last Admin: 12/24/23 08:33 Dose: Not Given Ondansetron HCl (Ondansetron 2 Mg/Ml Sdv 2 Ml) 4 mg IVP Q6H PRN PRN Reason: NAUSEA AND VOMITING Pantoprazole Sodium (Pantoprazole Dr 40 Mg Tablet) 40 mg PO DAILY [facility] Last Admin: 12/24/23 08:31 Dose: 40 mg Ranolazine (Ranolazine (12hr) 500 Mg Tablet) 500 mg PO BID [facility] Last Admin: 12/24/23 08:31 Dose: 500 mg Tamsulosin HCl (Tamsulosin 0.4 Mg Capsule) 0.4 mg PO DAILY PRN PRN Reason: Urinary Retention Temazepam (Temazepam 15 Mg Capsule) 15 mg PO BEDTIME PRN PRN Reason: INSOMNIA Verapamil HCl (Verapamil 2.5 Mg/Ml Inj 2ml) Confirm Administered Dose 5 mg .ROUTE .STK-MED ONE Stop: 12/23/23 13:33 Allergies Penicillins Allergy (Unknown, Verified 12/22/23 15:36) Unknown Home Medications pantoprazole 40 mg tablet,delayed release 40 mg PO DAILY 10/01/19 [History Confirmed 12/22/23] enalapril maleate 10 mg tablet 10 mg PO DAILY 03/30/21 [History Confirmed 12/22/23] cyanocobalamin (vitamin B-12) 5,000 mcg capsule 5,000 mcg PO DAILY 07/13/22 [History Confirmed 12/22/23] nitroglycerin 0.4 mg sublingual tablet (Nitrostat) 0.4 mg sublingual Q5M PRN chest pain #25 tabs 07/13/22 [Rx Confirmed 12/22/23] saw palmetto 450 mg capsule 450 mg PO DAILY 07/13/22 [History Confirmed 12/22/23] tamsulosin 0.4 mg capsule 0.4 mg PO DAILY PRN Urinary Retention 07/13/22 [History Confirmed 12/22/23] aspirin 81 mg chewable tablet 81 mg PO DAILY #90 tabs 07/27/22 [Rx Confirmed 12/22/23] cetirizine 10 mg tablet (Zyrtec) 10 mg PO DAILY Allergy Symptoms 02/16/23 [History Confirmed 12/22/23] ranolazine 500 mg tablet,extended release,12 hr 500 mg PO BID 06/13/23 [History Confirmed 12/22/23] clopidogrel 75 mg tablet 75 mg PO DAILY #90 tabs 07/20/23 [Rx Confirmed 12/22/23] fluticasone propionate 50 mcg/actuation nasal spray,suspension 1 spray intranasal BID PRN ALLERGIES 11/12/23 [History Confirmed 12/22/23] yqzrqkwhdlo-dhamnlnzb-wzu C-Mn 500 mg-400 mg capsule 1 cap PO DAILY 11/12/23 [History Confirmed 12/22/23] rosuvastatin 40 mg tablet 40 mg PO DAILY 11/12/23 [History Confirmed 12/22/23] metoprolol tartrate 25 mg tablet See Rx Instructions .Route .COMPLEX #60 tabs 11/18/23 [Rx Confirmed 12/22/23] furosemide 40 mg tablet 40 mg PO DAILY #30 tabs 12/05/23 [Rx Confirmed 12/22/23] isosorbide dinitrate 30 mg tablet 30 mg PO BID 12/22/23 [History Confirmed 12/22/23] Discharge Plan Discharge Patient Disposition: Xfer Other Condition: Stable Prescriptions: Continued pantoprazole 40 mg tablet,delayed release (DR/EC) 40 mg PO DAILY saw palmetto 450 mg capsule 450 mg PO DAILY enalapril maleate 10 mg tablet 10 mg PO DAILY tamsulosin 0.4 mg capsule 0.4 mg PO DAILY PRN (Reason: Urinary Retention) cyanocobalamin (vitamin B-12) 5,000 mcg capsule 5,000 mcg PO DAILY nitroglycerin [Nitrostat] 0.4 mg tablet, sublingual 0.4 mg SUBLINGUAL Q5M PRN (Reason: chest pain) Qty: 25 6RF cetirizine [Zyrtec] 10 mg tablet 10 mg PO DAILY isosorbide dinitrate 30 mg tablet 30 mg PO BID Rx Instructions: allow nitrate-free interval of 12-14 hrs per 24-hr period metoprolol tartrate 25 mg tablet See Rx Instructions .ROUTE .COMPLEX Qty: 60 5RF Dose Instruction: TAKE 1 TABLET BY MOUTH TWICE DAILY Rx Instructions: TAKE 1 TABLET BY MOUTH TWICE DAILY furosemide 40 mg tablet 40 mg PO DAILY Qty: 30 3RF aspirin 81 mg tablet,chewable 81 mg PO DAILY Qty: 90 1RF fluticasone propionate 50 mcg/actuation spray,suspension 1 spray INTRANASAL BID PRN (Reason: ALLERGIES) jzbvwumljbo-smtcylbha-ttr C-Mn [Glucosamine 1500 Complex] 500-400 mg Capsule 1 cap PO DAILY Rx Instructions: (1500MG) rosuvastatin 40 mg tablet 40 mg PO DAILY Discontinued ranolazine 500 mg tablet extended release 12 hr 500 mg PO BID clopidogrel 75 mg tablet 75 mg PO DAILY Qty: 90 3RF Discharge Orders: Discharge Order (Routine); Ordered 12/24/23 Ordered By: Chester Keen Referrals: Prerna Shoemaker FNP [Nurse Practitioner] - 01/09/24 3:00 pm Angelika Johnson PA [Primary Care Provider] - Discharge Diet: Cardiac Discharge Activity: Limit activity as instructed Patient Instructions: Coronary Angioplasty (DC), Post Angiogram Home Care Instructions, Pain Management, Post Heart Attack Stoplight Transfer Attestations Time Spent in Transfer Care: greater than 30 min Quality Metrics Clinical Quality Measures [ No reported AMI, CVA or VTE this stay] Coding Level of Care Code 20646 Total time (in minutes) for Discharge: 35 Diagnoses Atherosclerosis of [place] coronary artery of [place] heart with unstable angina pectoris I25.110 [place] vs. transplanted heart: [place] heart Non-ST elevation ME (NSTEMI) I21.4 Dyslipidemia E78.5 Essential hypertension I10 Hypertension type: essential hypertension Pacemaker Z95.0
== END 2023-12-24 14:45 | disposition short-term general hospital (02) | DRG 282 ==
LOC: ER 17:00 → CSU 17:13
PROVIDERS: Emergency Medicine; Student in an Organized Health Care Education/Training Program; Admitting Provider Internal Medicine Cardiovascular Disease; Emergency Provider Family Medicine; PCP Physician Assistant; Visit Provider Internal Medicine Cardiovascular Disease
PROC: 4A023N7 Measurement of Cardiac Sampling and Pressure, Left Heart, Percutaneous Approach (ICD-10-PCS; principal; 2023-12-23 13:30)
DX: I25.110 Atherosclerotic heart disease of native coronary artery with unstable angina pectoris (principal); I21.4 Non-ST elevation (NSTEMI) myocardial infarction; Z87.891 Personal history of nicotine dependence; E78.5 Hyperlipidemia, unspecified; I10 Essential (primary) hypertension; Z95.0 Presence of cardiac pacemaker; Z95.5 Presence of coronary angioplasty implant and graft; J44.9 Chronic obstructive pulmonary disease, unspecified
CPT/HCPCS: 36415; 71045; 80048; 80053; 83690; 84484; 85025; 85049; 85347; 85730; 93005; 93308; 93458; 96365; 96367; 96374; 96375; 99152; 99153; 99285; C1769; C1887; C1894; J1644; J2250; J3010; J3490; J7030; Q0163; Q9967

== ENCOUNTER 2024-01-25 09:47 | Outpatient (CLI) | payer OTHER, SELFPAY ==
[2024-01-25 11:02] LABS: Anion Gap 15.4 (5-19); Blood Urea Nitrogen 12 mg/dL (8-23); Calcium 8.8 mg/dL (8.5-10.5); Carbon Dioxide 26 mmol/L (22-29); Chloride 101 mmol/L (98-107); Glucose 90 mg/dL (65-115); NT Pro B Type Natriuretic Pept 2829 pg/mL (0-450); Osmolality Calculated 285 mOsm/kg (285-295); Potassium 4.4 mmol/L (3.5-5.1); Sodium 138 mmol/L (136-145)
== END 2024-01-25 09:48 | disposition home or self-care (01) ==
LOC: LAB 09:48
PROVIDERS: PCP Physician Assistant; Visit Provider Internal Medicine Cardiovascular Disease
DX: I25.110 Atherosclerotic heart disease of native coronary artery with unstable angina pectoris (principal); J44.9 Chronic obstructive pulmonary disease, unspecified
CPT/HCPCS: 36415; 80048; 83880

== ENCOUNTER 2024-02-13 09:40 | Outpatient (CLI) | payer OTHER, SELFPAY ==
[2024-02-13 10:37] LABS: Anion Gap 16.3 (5-19); Blood Urea Nitrogen 12 mg/dL (8-23); Carbon Dioxide 27 mmol/L (22-29); Chloride 103 mmol/L (98-107); Glucose 97 mg/dL (65-115); NT Pro B Type Natriuretic Pept 2529 pg/mL (0-450); Osmolality Calculated 294 mOsm/kg (285-295); Potassium 4.3 mmol/L (3.5-5.1); Sodium 142 mmol/L (136-145)
== END 2024-02-13 09:41 | disposition home or self-care (01) ==
LOC: LAB 09:41
PROVIDERS: PCP Physician Assistant; Visit Provider Internal Medicine Cardiovascular Disease
DX: I10 Essential (primary) hypertension (principal); I25.10 Atherosclerotic heart disease of native coronary artery without angina pectoris
CPT/HCPCS: 36415; 80048; 83880

== ENCOUNTER → 2024-02-14 11:32 | Outpatient (BNVA) | payer OTHER, SELFPAY | PROVIDERS: PCP Physician Assistant; Visit Provider Internal Medicine Cardiovascular Disease | DX: I25.10 Atherosclerotic heart disease of native coronary artery without angina pectoris (principal); I10 Essential (primary) hypertension; E78.5 Hyperlipidemia, unspecified; Z95.0 Presence of cardiac pacemaker; Z87.891 Personal history of nicotine dependence | CPT/HCPCS: 99214 ==

== ENCOUNTER 2024-02-28 10:09 | Outpatient (CLI) | payer OTHER, SELFPAY ==
[2024-02-28 10:55] LABS: Anion Gap 16.3 (5-19); Blood Urea Nitrogen 15 mg/dL (8-23); Calcium 9.6 mg/dL (8.5-10.5); Carbon Dioxide 28 mmol/L (22-29); Chloride 100 mmol/L (98-107); Glucose 109 mg/dL (65-115); NT Pro B Type Natriuretic Pept 2711 pg/mL (0-450); Osmolality Calculated 291 mOsm/kg (285-295); Potassium 4.3 mmol/L (3.5-5.1); Sodium 140 mmol/L (136-145)
== END 2024-02-28 10:10 | disposition home or self-care (01) ==
LOC: LAB 10:13
PROVIDERS: PCP Physician Assistant; Visit Provider Internal Medicine Cardiovascular Disease
DX: I25.110 Atherosclerotic heart disease of native coronary artery with unstable angina pectoris (principal); I25.10 Atherosclerotic heart disease of native coronary artery without angina pectoris; I10 Essential (primary) hypertension
CPT/HCPCS: 36415; 80048; 83880

== ENCOUNTER 2024-04-09 10:31 | Outpatient (CLI) | payer OTHER, SELFPAY ==
[2024-04-09 11:23] LABS: Anion Gap 15.4 (5-19); Blood Urea Nitrogen 18 mg/dL (8-23); Calcium 8.9 mg/dL (8.5-10.5); Carbon Dioxide 23 mmol/L (22-29); Chloride 103 mmol/L (98-107); Glucose 95 mg/dL (65-115); Osmolality Calculated 286 mOsm/kg (285-295); Potassium 4.4 mmol/L (3.5-5.1); Sodium 137 mmol/L (136-145)
== END 2024-04-09 10:32 | disposition home or self-care (01) ==
LOC: LAB 10:32
PROVIDERS: PCP Physician Assistant; Visit Provider Internal Medicine Cardiovascular Disease
DX: I25.110 Atherosclerotic heart disease of native coronary artery with unstable angina pectoris (principal); I10 Essential (primary) hypertension
CPT/HCPCS: 36415; 80048

== ENCOUNTER 2024-04-25 09:46 | Outpatient (CLI) | payer OTHER, SELFPAY ==
[2024-04-25 10:30] LABS: NT Pro B Type Natriuretic Pept 2649 pg/mL (0-450)
== END 2024-04-25 09:47 | disposition home or self-care (01) ==
LOC: LAB 09:47
PROVIDERS: PCP Physician Assistant; Visit Provider Internal Medicine Cardiovascular Disease
DX: I25.110 Atherosclerotic heart disease of native coronary artery with unstable angina pectoris (principal); I25.10 Atherosclerotic heart disease of native coronary artery without angina pectoris
CPT/HCPCS: 36415; 83880

== ENCOUNTER → 2024-05-15 13:42 | Outpatient (BNVA) | payer OTHER, SELFPAY | PROVIDERS: PCP Physician Assistant; Visit Provider Internal Medicine Cardiovascular Disease | DX: E78.5 Hyperlipidemia, unspecified (principal); I25.110 Atherosclerotic heart disease of native coronary artery with unstable angina pectoris; I10 Essential (primary) hypertension; J44.9 Chronic obstructive pulmonary disease, unspecified; Z95.0 Presence of cardiac pacemaker | CPT/HCPCS: 99214 ==

== ENCOUNTER 2024-05-16 07:56 | Outpatient (CLI) | payer OTHER, SELFPAY ==
[2024-05-16 08:35] LABS: Alanine Aminotransferase 15 U/L (0-41); Albumin Level 4.3 g/dL (3.5-5.2); Alkaline Phosphatase 81 U/L (40-130); Aspartate Amino Transferase 15 U/L (0-40); Cholesterol 151 mg/dL (0-200); Globulin 3.2 g/dL (1.3-4.6); HDL Cholesterol 52 mg/dL (60-100); LDL Cholesterol Calculated 77 mg/dL (50-129); LDL HDL Ratio 1.48 RATIO (0.00-3.22); Total Bilirubin 0.7 mg/dL (0.15-1.2); Total Protein 7.5 g/dL (6.6-8.7); Triglycerides 110 mg/dL (0-150)
== END 2024-05-16 07:57 | disposition home or self-care (01) ==
LOC: LAB 07:57
PROVIDERS: PCP Physician Assistant; Visit Provider Internal Medicine Cardiovascular Disease
DX: E78.5 Hyperlipidemia, unspecified (principal)
CPT/HCPCS: 80061; 80076

== ENCOUNTER → 2024-11-22 09:58 | Outpatient (BNVA) | payer OTHER, SELFPAY | PROVIDERS: PCP Physician Assistant; Visit Provider Nurse Practitioner Family | DX: R07.9 Chest pain, unspecified (principal); I10 Essential (primary) hypertension; Z95.0 Presence of cardiac pacemaker | CPT/HCPCS: 36415; 80048; 83880; 85025; 93005; 99214 ==

== ENCOUNTER 2024-12-04 09:57 | Outpatient (CLI) | payer OTHER, MEDICARE, SELFPAY ==
[2024-12-04 11:06] LABS: Anion Gap 13.3 (5-19); Blood Urea Nitrogen 16 mg/dL (8-23); Calcium 9.1 mg/dL (8.5-10.5); Carbon Dioxide 28 mmol/L (22-29); Chloride 105 mmol/L (98-107); Glucose 98 mg/dL (65-115); Osmolality Calculated 295 mOsm/kg (285-295); Potassium 4.3 mmol/L (3.5-5.1); Sodium 142 mmol/L (136-145)
== END 2024-12-04 09:58 | disposition home or self-care (01) ==
PROVIDERS: PCP Physician Assistant; Visit Provider Nurse Practitioner Family
DX: I10 Essential (primary) hypertension (principal)
CPT/HCPCS: 36415; 80048

== ENCOUNTER 2024-12-10 10:36 | Outpatient (CLI) | payer OTHER, SELFPAY ==
[2024-12-10 11:09] LABS: Basophils # 0.1 10^3/uL (0.0-0.1); Basophils % 0.8 %; Eosinophils # 0.1 10^3/uL (0.0-0.8); Eosinophils % 1.5 %; Hematocrit 46.6 % (37-53); Lymphocytes # 2.4 10^3/uL (0.8-4.8); Lymphocytes % 36.1 %; Mean Corpuscular HGB Conc 32.6 g/dL (30-55); Mean Corpuscular Hemoglobin 27.5 pg (27-33); Mean Corpuscular Volume 84.4 fl (82-101); Mean Platelet Volume 9.3 fL (7.4-10.4); Monocytes # 0.8 10^3/uL (0.2-0.9); Monocytes % 11.5 %; Neutrophils # 3.27 10^3/uL (1.8-7.7); Neutrophils % 49.5 %; Nucleated Red Blood Cells % 0 %; Platelet Count 220 10^3/cmm (157-399); Red Blood Count 5.52 10^6/uL (3.85-5.65); Red Cell Distribution Width 13.5 % (12.1-15.1)
== END 2024-12-10 10:37 | disposition home or self-care (01) ==
LOC: LAB 10:37
PROVIDERS: PCP Physician Assistant; Visit Provider Nurse Practitioner Family
DX: I25.10 Atherosclerotic heart disease of native coronary artery without angina pectoris (principal)
CPT/HCPCS: 36415; 85025

== ENCOUNTER → 2024-12-26 09:53 | Outpatient (BNVA) | payer OTHER, SELFPAY | PROVIDERS: PCP Physician Assistant; Visit Provider Internal Medicine Cardiovascular Disease | DX: I25.110 Atherosclerotic heart disease of native coronary artery with unstable angina pectoris (principal); I25.5 Ischemic cardiomyopathy; I48.0 Paroxysmal atrial fibrillation; Z79.01 Long term (current) use of anticoagulants; Z95.0 Presence of cardiac pacemaker; I10 Essential (primary) hypertension; E78.5 Hyperlipidemia, unspecified; J44.9 Chronic obstructive pulmonary disease, unspecified; Z87.891 Personal history of nicotine dependence | CPT/HCPCS: 99214 ==

== ENCOUNTER 2024-12-28 06:35 | Outpatient (CLI) | payer OTHER, SELFPAY ==
--- NOTE | 2024-12-28 06:45 | USCV_ITS ---
Ashish Armijo Age: 84 Gender: M : 1940 Exam Date: 12/28/2024 06:44 Ordering Phys: Karolina Lam MD ([email or web address]) Technologist: BRIAN [place] [facility] [place]: Pre op. BP: 114 / 75 HR: 60 Rhythm: Sinus Technical Quality: Adequate MEASUREMENTS (Male / Female) Normal Values 2D ECHO LV Diastolic Diameter PLAX 6.0 cm 4.2 - 5.9 / 3.9 - 5.3 cm IVS Diastolic Thickness 1.5 cm 0.6 - 1.0 / 0.6 - 0.9 cm IVS Systolic Thickness 1.4 cm LVPW Diastolic Thickness 1.4 cm 0.6 - 1.0 / 0.6 - 0.9 cm LVPW Systolic Thickness 1.7 cm LVOT Diameter 2.4 cm LV Ejection Fraction 2D Teich 24.3 % LV Ejection Fraction MOD 4C 29.2 % LV Ejection Fraction MOD 2C 28.0 % LV Ejection Fraction 2C AL 27.5 % LA Diameter 4.2 cm RA Systolic Volume 4C AL 32.9 ml RA Systolic Volume 4C MOD 31.7 ml LA Sys Volume AL 48.9 cm cubed LA Sys Volume Index AL 21.4 cm cubed/m squared Aorta at Sinotubular Diameter 3.2 cm IVC Diameter 2.3 cm M-MODE LA Ao Ratio MM 1.6 AV Cusp Separation MM 1.2 cm DOPPLER AV Peak Velocity 98.0 cm/s LVOT Peak Velocity 77.0 cm/s AV Area Cont Eq vti 3.9 cm squared AV Area Cont Eq pk 3.4 cm squared MV Peak Velocity 114.0 cm/s MV Area PHT 4.8 cm squared Mitral E to A Ratio 0.6 TR Peak Velocity 75.0 cm/s TR Peak Gradient 2.3 mmHg TV Peak E Velocity 47.0 cm/s PV Peak Velocity 117.0 cm/s FINDINGS Left Ventricle Severe diffuse hypokinesia of the left ventricle with ejection fraction of 29%. Mildly dilated LV cavity. Mild coronary left- ventricular hypertrophy Right Ventricle Normal right ventricular size and systolic function. Right Atrium Normal right atrial size. Left Atrium Normal left atrial size. Mitral Valve No gross abnormalities no Aortic Valve Aortic leaflets appears to be thickened. Could not be visualized well. Tricuspid Valve No gross abnormalities Pulmonic Valve Pulmonic valve not well visualized. Pericardium No pericardial effusion. Aorta Normal aortic annulus size. IVC Normal IVC dimension with <50% respiratory change of the inferior vena cava. CONCLUSIONS Severe diffuse hypokinesia of the left ventricle with ejection fraction of 29%. Mildly dilated LV cavity. Mild coronary left-ventricular hypertrophy. Aortic leaflets appears to be thickened. Could not be visualized well. There is no pericardial effusion. Estimated RA pressure of 10 mmHg Compared to the study from 12/23/2023, no significant change in the LV ejection fraction. Dr Karolina Lam MD FAC (Electronically Signed) Final Date: 30 December 2024 22:08 S
== END 2024-12-28 06:36 | disposition home or self-care (01) ==
PROVIDERS: PCP Physician Assistant; Visit Provider Internal Medicine Cardiovascular Disease
DX: R07.9 Chest pain, unspecified (principal); I21.4 Non-ST elevation (NSTEMI) myocardial infarction; R93.1 Abnormal findings on diagnostic imaging of heart and coronary circulation; I42.2 Other hypertrophic cardiomyopathy; I42.0 Dilated cardiomyopathy
CPT/HCPCS: 93306

== ENCOUNTER → 2025-01-11 09:41 | Outpatient (BNVA) | payer OTHER, SELFPAY | PROVIDERS: PCP Physician Assistant; Visit Provider Nurse Practitioner Family | DX: I25.110 Atherosclerotic heart disease of native coronary artery with unstable angina pectoris (principal); I10 Essential (primary) hypertension; I25.5 Ischemic cardiomyopathy; I48.0 Paroxysmal atrial fibrillation; Z95.0 Presence of cardiac pacemaker; E78.5 Hyperlipidemia, unspecified; J44.9 Chronic obstructive pulmonary disease, unspecified; Z79.01 Long term (current) use of anticoagulants | CPT/HCPCS: 99214 ==

== ENCOUNTER 2025-01-16 08:06 | Outpatient (CLI) | payer OTHER, SELFPAY ==
--- NOTE | 2025-01-16 | ECG_ITS ---
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 The perfusion scan will be documented separately. DATA: Baseline heart rate was 72 beats per minute. Baseline blood pressure was 126/80 millimeters of mercury. Target heart rate was 136. Maximum heart rate achieved was 80. which was 58 % of the predicted target heart rate. Maximum blood pressure was 126/80 millimeters of mercury. The reason for ending the test was completion of the protocol. The patient did not experience any symptoms. ELECTROCARDIOGRAM: BASELINE: Sinus rhythm. Left axis. Left bundle branch block EXERCISE: After Lexiscan injection, no ST-T changes suggestive of ischemic noted. No arrhythmia noted. CONCLUSION: Please note due to baseline abnormality of the EKG specificity and sensitivity of the EKG portion of LexiScan MIBI stress test will be low 1. EKG not suggestive of ischemia 2. Lexiscan injection unremarkable. 3. Perfusion scan will be documented separately. Electronically Signed On 02-05-2025 22:14:45 CDT by DAGOBERTO HAYES [email or web address]
[2025-01-16 08:44] VITALS: BMI 29.8
--- NOTE | 2025-01-16 08:45 | NMCV_ITS ---
NM raudel perf SPECT r/s* [id number] Ashish Armijo Age: 84 Gender: M : 1940 Exam Date: 01/16/2025 09:09 Ordering Phys: Dianne Tapia NP Technologist: JOEY Paz Exam Location: [facility] Indications: cp STRESS TEST Please see separate stress test report in [facility] for full findings IMAGE PROTOCOL Rest/Stress 1 Lexiscan Day Radiopharmaceutical Dose (mCi) Administration Site Administered by Rest: Tc-99m 10.5 IV Julisa Berg, HORN PLAYER Sestamibi Stress:Tc-99m 32.6 IV Julisa Mcclaingle, HORN PLAYER Sestamibi Rest: 16-Jan-2025 60 Discovery 630 Stress: 16-Jan-2025 30 Discovery 630 0.4mg Lexiscan. Images obtained in supine and prone position. SPECT RESULTS Technical Quality: Good Raw Data Analysis: Normal Image Corrections: No attenuation or motion correction applied Summed Stress Score: 15 Summed Rest Score: 13 Summed Difference Score: 4 PERFUSION FINDINGS Large area of fixed perfusion defect noted in basal to distal inferior and inferolateral wall suggestive of old myocardial infarction versus scarring. No ischemia noted FUNCTIONAL RESULTS (calculated via Gated SPECT) Stress Image LV EF (%): 24 Stress EDV (mL):274 TID: 1.08 Stress ESV (mL):209 FUNCTIONAL FINDINGS: Inferior wall akinesis IMPRESSIONS Old myocardial infarction versus scarring noted in basal distal inferior and inferolateral wall without bret-infarct ischemia. This study is negative for ischemia. Ace Malagon MD (Electronically Signed) Final Date: 17 Jan 2025 17:07 S
[2025-01-16] MEDS: regadenoson 0.4 Mg/5 ml Syringe IVP (09:47)
[2025-01-16 09:57] VITALS: BP 111/68; PULSE 60
== END 2025-01-16 08:07 | disposition home or self-care (01) ==
PROVIDERS: PCP Physician Assistant; Visit Provider Nurse Practitioner Family
DX: R07.9 Chest pain, unspecified (principal); R93.1 Abnormal findings on diagnostic imaging of heart and coronary circulation
CPT/HCPCS: 36415; 78452; 93017; 93296; 96374; A9500; J2785

== ENCOUNTER 2025-01-22 15:02 | Outpatient (CLI) | payer OTHER, SELFPAY ==
[2025-01-22 16:58] LABS: Anion Gap 17.3 (5-19); Blood Urea Nitrogen 13 mg/dL (8-23); Calcium 9.2 mg/dL (8.5-10.5); Carbon Dioxide 23 mmol/L (22-29); Chloride 106 mmol/L (98-107); Glucose 94 mg/dL (65-115); Osmolality Calculated 294 mOsm/kg (285-295); Potassium 4.3 mmol/L (3.5-5.1); Sodium 142 mmol/L (136-145)
== END 2025-01-22 15:03 | disposition home or self-care (01) ==
LOC: LAB 15:03
PROVIDERS: PCP Physician Assistant; Visit Provider Nurse Practitioner Family
DX: I10 Essential (primary) hypertension (principal)
CPT/HCPCS: 36415; 80048

== ENCOUNTER → 2025-03-25 14:53 | Outpatient (BNVA) | payer OTHER, SELFPAY | PROVIDERS: PCP Physician Assistant; Visit Provider Internal Medicine Cardiovascular Disease | DX: I25.10 Atherosclerotic heart disease of native coronary artery without angina pectoris (principal); I25.5 Ischemic cardiomyopathy; I48.91 Unspecified atrial fibrillation; Z79.01 Long term (current) use of anticoagulants; I10 Essential (primary) hypertension; E78.5 Hyperlipidemia, unspecified; J44.9 Chronic obstructive pulmonary disease, unspecified; Z95.0 Presence of cardiac pacemaker; Z95.5 Presence of coronary angioplasty implant and graft; Z87.891 Personal history of nicotine dependence; I25.2 Old myocardial infarction; R06.02 Shortness of breath; I42.9 Cardiomyopathy, unspecified | CPT/HCPCS: 36415; 80048; 83880; 99214 ==

== ENCOUNTER 2025-03-28 15:33 | Outpatient (CLI) | payer OTHER, SELFPAY ==
--- NOTE | 2025-03-28 15:45 | USCV_ITS ---
Zofia Ashish Age: 84 Gender: M : 1940 Exam Date: 03/28/2025 15:53 Ordering Phys: Karolina Lam MD ([email or web address]) Technologist: BRIAN [place] [facility] [place]ication: Cardiomyopathy BP: 110 / 74 HR: Rhythm: Sinus Technical Quality: Adequate MEASUREMENTS (Male / Female) Normal Values 2D ECHO LV Diastolic Diameter PLAX 6.0 cm 4.2 - 5.9 / 3.9 - 5.3 cm IVS Diastolic Thickness 1.5 cm 0.6 - 1.0 / 0.6 - 0.9 cm IVS Systolic Thickness 2.0 cm LVPW Diastolic Thickness 1.9 cm 0.6 - 1.0 / 0.6 - 0.9 cm LVPW Systolic Thickness 2.4 cm LVOT Diameter 2.1 cm LV Ejection Fraction 2D Teich 45.3 % LV Ejection Fraction MOD 4C 34.2 % LV Ejection Fraction MOD 2C 33.8 % LV Ejection Fraction 2C AL 34.7 % LA Diameter 4.6 cm RA Systolic Volume 4C AL 31.5 ml RA Systolic Volume 4C MOD 31.0 ml LA Sys Volume AL 74.4 cm cubed LA Sys Volume Index AL 32.9 cm cubed/m squared Aorta at Sinotubular Diameter 2.9 cm IVC Diameter 2.7 cm M-MODE LA Ao Ratio MM 1.3 AV Cusp Separation MM 1.8 cm FINDINGS Left Ventricle Right Ventricle Right Atrium Left Atrium Mitral Valve Aortic Valve Tricuspid Valve Pulmonic Valve Pericardium Aorta IVC CONCLUSIONS Limited echocardiogram performed to assess LV systolic function. LV systolic function is moderate to severely reduced with EF of 30 to 35%. Moderate-severe global hypokinesis seen. Amilcar Ring MD (Electronically Signed) Final Date: 29 March 2025 12:25 S
== END 2025-03-28 15:34 | disposition home or self-care (01) ==
LOC: RAD 15:35
PROVIDERS: PCP Physician Assistant; Visit Provider Internal Medicine Cardiovascular Disease
DX: I42.9 Cardiomyopathy, unspecified (principal)
CPT/HCPCS: 93308

== ENCOUNTER 2025-03-29 02:15 | Observation (INO) | payer OTHER, MEDICARE, SELFPAY ==
[2025-03-29] VITALS (25 sets, daily range): BP systolic 95–148; BP diastolic 58–86; PULSE 55–82; RESP 12–21; O2SAT 90–97; BMI 25.7
--- NOTE | 2025-03-29 02:19 | ECG_ITS ---
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
--- OUTSIDE RECORDS SUMMARY | 2025-03-29 02:19 | XMS_ITS | Encounter Summary ---
Author Organization [facility] Address [address] [place] [address] Care Team Providers Care Agriculture Department Chair Name Role Phone Unavailable Primary Care Provider Unavailabl e Encounter Details Date Type Department Care Team (Late st Contact Info) Description 09/03/2002 Outpatient Historical [facility] [employer] [address] 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
--- OUTSIDE RECORDS SUMMARY | 2025-03-29 02:19 | XMS_ITS | Clinical Summary ---
Author Organization [facility] Address [address] [facility] Attn: [place] [address] Care Team Providers Care Malt Specifications Control Assistant Name Role Phone Unavailable Primary Care Provider Unavailabl e Allergies Active Allergy Reactions Criticality Noted Date Comments Penicillins Rash Low 02/27/2009 Medications No known medications Active Problems Problem Noted Date Diagnosed Date Actinic keratosis 11/25/2010 Personal history of other malignant neoplasm of skin 05/08/2010 Social History Tobacco Use Types Packs/Day Years Used Date Smoking Tobacco: Former Smokeless Tobacco: Former Alcohol Use Standard Drinks/Week Comments Yes 5.8 (1 standard drink = 0.6 oz p ure alcohol) Sex and Gender Information Value Date Recorded Sex Assigned at Not on file 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 Gender Identity Not on file Sexual Orientation Not on file Last Filed Vital Signs Vital Sign Reading Time Taken Comments Blood Pressure 163/98 03/09/2016 10:47 AM CDT Pulse 55 11/18/2015 11:38 AM CDT Temperature - - Respiratory Rate - - Oxygen Saturation 97% 08/02/2023 1:18 PM 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 Inhaled Oxygen Concentration - - Weight 90.7 kg (200 lb) 03/09/2016 10:47 AM CDT Height 182.9 cm (6') 03/09/2016 10:47 AM CDT Body Mass Index 27.12 03/09/2016 10:47 AM CDT Plan of Treatment Health Maintenance Due Date Last Done Comments RSV VACCINE (60+ or ) (1 - 1-dose 75+ series) 12/09/2015 PNEUMOCOCCAL VACCINE 50+ YEA RS (2 of 2 - PCV) 09/04/2020 09/04/2019 COVID-19 Vaccine (4 - 2023-2 5 season) 2024 07/17/2021, 10/30/2020, 10/01/2020 INFLUENZA VACCINE (#1) 2025 2, 06/22/2021, 06/18/2020, Additional history exists DTAP/TDAP/TD VACCINES (2 - T d or Tdap) 08/11/2026 08/11/2016 ZOSTER VACCINE Completed 12/29/2021, 01/2022, 07/11/2013 Medical Devices Implanted Type Area Contract Forester Device Identifier Shelf Expiration Date Model / Serial / Lot Medtronic Rv Lead 5076-58-04/15/20 23 Implanted:04/15 (Quantity not on file) Lead [employer] 5076-58 / [id number] / Medtronic Ra Lead [id number]/15/20 23 Implanted:04/15 (Quantity not on file) Lead [employer] 5076-52 / [id number] / Pacemaker Medtronic [id number]/11/202 3 Implanted:04/15 (Quantity not on file) Pacemaker [employer] [id number] / [id number] / [phone], fax [phone] Insurance [facility] [place] [employer]
--- OUTSIDE RECORDS SUMMARY | 2025-03-29 02:19 | XMS_ITS | Encounter Summary ---
Author Organization [facility] Address [address] [place] [address] Care Team Providers Care Investigation Clerk Name Role Phone Unavailable Primary Care Provider Unavailabl e Encounter Details Date Type Department Care Team (Late st Contact Info) Description 07/31/2008 Outpatient Historical [facility] [address] [place] [address] Jens Randle MD [address] [place] [address] Social History Tobacco Use Types Packs/Day Years Used Date Smoking Tobacco: Never Assessed Sex and Gender Information Value Date Recorded Sex Assigned at Not on file 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 Gender Identity Not on file Sexual Orientation Not on file documented as of this encounter Plan of Treatment Not on file documented as of this encounter Procedures Procedure Name Priority Date/Time Associated Diagnosis Comments PATHOLOGY Routine 07/31/2008 1:48 PM PATTERN REPAIR PERSON documented in this encounter Results * PATHOLOGY (07/31/2008 1:48 PM PATTERN REPAIR PERSON) PATHOLOGY/CYT OLOGY REPORT [facility] Anatomic Pathology Dept [facility] [facility] [address] Patient: RAJ ARMIJO Accn No: [id number] Collected: 07/31/2008 1:48:00 PM DERMATOPATHOLOGY FINAL REPORT Diagnosis A. 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 BASAL CELL CARCINOMA, SUPERFICIAL PATTERN (173.5) (RIGHT MIDDLE BACK) C. SOLAR KERATOSIS (702.0) (RIGHT LOWER EXTREMITY) Jens Randle MD (Electronically signed by) Verified: 08/03/08 RP /WLS Clinical Information A. Basal cell carcinoma. Treated by C&D x 1. B. Basal cell carcinoma. Treated by C&D x 1. C. Basal cell carcinoma. Treated by C&D x 1. Specimen Source A. RIGHT SHOULDER B. RIGHT MIDDLE BACK C. RIGHT LOWER EXTREMITY Gross Description A. Received in formalin is a pink and white papule measuring 0.8 x 0.8 x 0.1 cm. The specimen is sectioned into four pieces and submitted in cassette A1.B. Received in formalin is a scaly pinkish-white fragment of skin measuring 1.2 x 0.9 x 0.1 cm. The specimen is sectioned into six pieces and submitted in cassette B1.C. Received in formalin is a pinkish- white fragment of skin measuring 0.7 x 0.5 x 0.1 cm. The specimen is trisected and submitted in cassette C1. *Gross examination performed at [facility], [facility] [place] [address] DI RP /WLS Microscopic Description A. Sections show an intraepithelial proliferation of atypical keratinocytes, relatively confluently arrayed within the epidermis. B. Sections show aggregates of atypical, peripherally palisaded basaloid cells near the junctional zone. C. Sections show an intraepithilial proliferation of atypical keratinocytes that is largely confined to the interadnexal epidermis. INTERFACE SYSTEM 07/31/2008 1:48 PM PATTERN REPAIR PERSON us Jens Randle MD PATHOLOGY/CYTOLOGY ORDERABL ES Final Result INTERFACE SYSTEM Refer to clinic/hospital department documented in this encounter Visit Diagnoses Not on filedocumented in this encounter
--- OUTSIDE RECORDS SUMMARY | 2025-03-29 02:19 | XMS_ITS | Encounter Summary ---
Author Organization [facility] Address [address] [place] [address] Care Team Providers Care Eeo Officer Name Role Phone Unavailable Primary Care Provider Unavailabl e Encounter Details Date Type Department Care Team (Late st Contact Info) Description 09/03/2002 Outpatient Historical [facility] Henry, Ben Sams MD [address] [id number] ACTINIC KERATOSIS (Primary Dx); Benign jonah skin leg Social History Tobacco Use Types Packs/Day Years Used Date Smoking Tobacco: Never Assessed Sex and Gender Information Value Date Recorded Sex Assigned at Not on file 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
--- OUTSIDE RECORDS SUMMARY | 2025-03-29 02:19 | XMS_ITS | Clinical Summary ---
Author Organization [facility] Address [address] [place] [address] Care Team Providers Care Field Software Engineer Name Role Phone Unavailable Primary Care Provider Unavailabl e Allergies Active Allergy Reactions Criticality Noted Date Comments Penicillins Rash Low 02/27/2009 Medications ALLOPURINOL PO Take by mouth. Active MULTIVITAMINS (MULTIVITAMIN PO) Take by mouth. Active isosorbide mononitrate (IMDUR) 15 mg Oral Tb24 Take 15 mg by mouth daily. Active pantoprazole (PROTONIX) 40 mg Oral TbEC Take 40 mg by mouth daily. Active aspirin (AUREA) 81 mg Oral Tab Take by mouth. Active pravastatin (PRAVACHOL) 40 mg Oral tablet Take 40 mg by mouth Daily LATE. 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 Gender Identity Not on file Sexual Orientation Not on file Last Filed Vital Signs Vital Sign Reading Time Taken Comments Blood Pressure 163/98 03/09/2016 10:47 AM CDT Pulse 55 11/18/2015 11:38 AM CDT Temperature - - Respiratory Rate - - Oxygen Saturation - - Inhaled Oxygen Concentration - - Weight 90.7 kg (200 lb) 03/09/2016 10:47 AM CDT Height 182.9 cm (6') 03/09/2016 10:47 AM CDT Body Mass Index 27.12 03/09/2016 10:47 AM CDT Plan of Treatment Health Maintenance Due Date Last Done Comments DTAP/TDAP/TD VACCINES (1 - Tdap) 12[birth year]09/1959 PNEUMOCOCCAL VACCINE 50+ YEARS (1 of 1 - PCV) 12/08/18 91 ZOSTER VACCINE (1 of 2) 1990 RSV VACCINE (60+ or ) (1 - 1-dose 75+ series) 12/09/2015 INFLUENZA VACCINE (#1) 2025 Insurance [facility] [place] [address] [id number] HMO
--- OUTSIDE RECORDS SUMMARY | 2025-03-29 02:20 | XMS_ITS | Data Portability ---
Author Organization [facility] De Leon [facility], [facility], [facility] Address [address] [address] Care Team Providers Care Client Analyst Name Role Phone ANGELIKA JOHNSON Primary Care Provider [phone] Assessment No assessment recorded. Plan of Treatment Reminders Order Date Submit Date Provider Last Modified By Organization Details Last Modified Time Details Appointments OFFICE VISIT 2024 10:00A M ANGELIKA JOHNSON PA-C Not available Not available Not available Lab CMP, serum or plasma 2024 025 [facility], [address], [place], [address], 03/01/2025 10:22:01 lipid panel, blood 2024 025 [facility], [address], [place], [address], 03/01/2025 10:22:04 CMP, serum or plasma 2023 024 [facility], [address], [place], [address], 07/19/2024 14:31:02 CBC 2023 024 [facility], [address], [place], [address], 07/19/2024 12:04:01 TSH, serum or plasma 2023 024 [facility] ([facility]), [address] [facility], [place], [address], 07/19/2024 15:43:44 PSA, serum or plasma 2023 024 [facility], [address] [facility] , [address], [place], [address], 07/20/2024 06:33:27 Referral None recorded. Procedures None recorded. Surgeries None recorded. Imaging None recorded. Medication Orders MediHoney (honey) 80 % topical gel 2024 025 [facility], [address], [place], [address], 02/19/2025 10:42:58 mupirocin 2 % topical ointment 2024 025 [facility], [address], [place], [address], 01/27/2025 12:46:09 doxycycli ne hyclate 100 mg capsule 2024 025 [facility], [address], [place], [address], 02/13/2025 05:01:06 Patient TargetsNo targets recorded. Patient Instructions Encounter Date Encounter Id Patient Instructions Last Modified By Organization Details Last Modified Time 02/19/2025 [id number] ([id number]) ankle brachial index* - to be done at [facility] but [place] , let them know. [email or web address] Not available 02/26/2025 07:19:42 Reason for Referral None Reported. Results Created Date Observation Date Name Description Value Unit Range Abnormal Flag Note LastModifiedBy Organization Detail LastModifiedTime 03/01/2003/01/2025 CMP (MALE ) glucose 109.0 mg/dL 60.0-9 9.0 high Not Available [facility] [address] [facility], [place], [address], 03/01/2025 10:22:01 03/01/20 25 03/01/2025 CMP (MALE ) BUN (blood urea nitrogen) 17.0 mg/dL 10.0-2 6.0 Not Available [facility] [address] [facility] 1, [place], [address], 03/01/2025 10:22:01 03/01/20 25 03/01/2025 CMP (MALE ) creatinine (serum) 1.0 mg/dL 0.4-1. 5 Not Available [facility] [address] [facility] 1, [place], [address], 03/01/2025 10:22:01 03/01/20 25 03/01/2025 CMP (MALE ) BUN/creatini ne ratio 17.00 ratio Not Available [facility] [address] [facility] 1, [place], [address], 03/01/2025 10:22:01 03/01/20 25 03/01/2025 CMP (MALE ) eGFR calculated 75.7 Not Available [facility] [address] [facility] 1, [place], [address], 03/01/2025 10:22:01 03/01/20 25 03/01/2025 CMP (MALE ) total protein 7.3 g/dL 6.0-8. 5 Not Available [facility] [address] [facility] 1, [place], [address], 03/01/2025 10:22:01 03/01/20 25 03/01/2025 CMP (MALE ) total bilirubin 1.0 mg/dL 0.2-1. 3 Not Available [facility] [address] [facility] 1, [place], [address], 03/01/2025 10:22:01 03/01/20 25 03/01/2025 CMP (MALE ) albumin 4.2 g/dL 3.5-5. 5 Not Available [facility] [address] [facility] 1, [place], [address], 03/01/2025 10:22:01 03/01/20 25 03/01/2025 CMP (MALE ) globulin 3.1 calc Not Available [facility] [address] [facility] 1, [place], [address], 03/01/2025 10:22:01 03/01/20 25 03/01/2025 CMP (MALE ) AST (SGOT) 28.0 U/L 0.0-46 .0 Not Available [facility] [address] [address], [place], [address], 03/01/2025 10:22:01 03/01/20 25 03/01/2025 CMP (MALE ) altv (SGPT) 19.0 U/L 13.0-6 9.0 normal Not Available [facility] [address] [address], [place], [address], 03/01/2025 10:22:01 03/01/20 25 03/01/2025 CMP (MALE ) A/G ratio 1.4 ratio Not Available [facility] [address] [address], [place], [address], 03/01/2025 10:22:01 03/01/20 25 03/01/2025 CMP (MALE ) ALP phos 67.0 U/L 30.0-1 40.0 normal Not Available [facility] [address] [facility] 1, [place], [address], 03/01/2025 10:22:01 03/01/20 25 03/01/2025 CMP (MALE ) calcium 9.3 mg/dL 8.4-10 .5 Not Available [facility] [address] [facility], [place], [address], 03/01/2025 10:22:01 03/01/20 25 03/01/2025 CMP (MALE ) sodium 141.0 mmol/ L 136.0- 145.0 Not Available [facility] [address] [facility], [place], [address], 03/01/2025 10:22:03/01/20 25 03/01/2025 CMP (MALE ) potassium 4.3 mmol/ L 3.5-5. 1 Not Available [facility] [address] [facility], [place], [address], 03/01/2025 10:22:01 03/01/20 25 03/01/2025 CMP (MALE ) chloride 106.0 mmol/ L 98.0-1 10.0 normal Not Available [facility] [address] [facility], [place], [address], 03/01/2025 10:22:01 03/01/20 25 03/01/2025 CMP (MALE ) C02 27.0 mmol/ L 22.0-3 1.0 Not Available [facility] [address] [facility], [place], [address], 03/01/2025 10:22:01 03/01/20 25 03/01/2025 CMP (MALE ) anion gap 8.0 calc Not Available [facility] [address] [facility], [place], [address], 03/01/2025 10:22:01 03/01/20 25 03/01/2025 CMP (MALE ) osmolality 293.1 calc Not Available [facility] [address] [facility], [place], [address], 03/01/2025 10:22:01 03/01/20 25 03/01/2025 LIPID PROFI LE (MALE ) cholesterol 149.0 mg/dL 0.0-20 0.0 Not Available [facility] [address] [facility] 1, [place], [address], 03/01/2025 10:22:04 03/01/20 25 03/01/2025 LIPID PROFI LE (MALE ) trig 116.0 mg/dL 0.0-15 0.0 Not Available [facility] [address] [facility], [place], [address], 03/01/2025 10:22:04 03/01/20 25 03/01/2025 LIPID PROFI LE (MALE ) HDL - direct 39.0 mg/dL >40.0 low Not Available [facility] [address] [facility] 1, [place], [address], 03/01/2025 10:22:04 03/01/20 25 03/01/2025 LIPID PROFI LE (MALE ) VLDL - direct 23.2 mg/dL Not Available [facility] [address] [facility] 1, [place], [address], 03/01/2025 10:22:04 03/01/20 25 03/01/2025 LIPID PROFI LE (MALE ) LDL - direct 86.8 mg/dL 0.0-13 0.0 Not Available [facility] [address] [facility] 1, [place], [address], 03/01/2025 10:22:04 07/19/20 24 07/19/2024 CBC WBC 6.7 x10 4.5-10 .5 Not Available [facility] [address] [facility] 1, [place], [address], 07/19/2024 12:04:01 07/19/20 24 07/19/2024 CBC RBC 5.64 x10 4.30-5 .90 Not Available [facility] [address], [place], [address], 07/19/2024 12:04:01 07/19/2007/19/2024 CBC HGB 16.0 g/dL 13.5-1 8.0 Not Available [facility] [address] [facility], [place], [address], 07/19/2024 12:04:01 07/19/2007/19/2024 CBC HCT 47.2 % 35.0-6 0.0 Not Available [facility] [address] [facility], [place], [address], 07/19/2024 12:04:01 07/19/2007/19/2024 CBC MCV 83.7 fL 80.0-9 9.9 Not Available [facility] [address] [facility], [place], [address], 07/19/2024 12:04:01 07/19/20 24 07/19/2024 CBC MCH 28.4 pg 27.0-3 2.0 Not Available [facility] [address] [facility], [place], [address], 07/19/2024 12:04:01 07/19/20 24 07/19/2024 CBC MCHC 34.0 g/dL 32.0-3 6.0 Not Available [facility] [address] [facility], [place], [address], 07/19/2024 12:04:01 07/19/2007/19/2024 CBC RDW 15.5 % 11.5-1 4.5 high Not Available [facility] [address] [facility], [place], [address], 07/19/2024 12:04:01 07/19/2007/19/2024 CBC plt 200.9 x10 150.0- 451.0 Not Available [facility] [address] [facility], [place], [address], 07/19/2024 12:04:01 07/19/2007/19/2024 CBC lymphocytes % 35.7 % 20.0-5 0.0 Not Available [facility] [address] [facility], [place], [address], 07/19/2024 12:04:01 07/19/20 24 07/19/2024 CBC granulcytes % 52.1 % 30.0-7 0.0 Not Available [facility] [address] [facility], [place], [address], 07/19/2024 12:04:01 07/19/2007/19/2024 CBC monocytes % 10.6 % 2.0-16 .0 Not Available [facility] [address] [facility], [place], [address], 07/19/2024 12:04:01 07/19/2007/19/2024 CBC granulcytes# 3.5 x10 Not Keara ilable [facility] [address] [facility], [place], [address], 07/19/2024 12:04:01 07/19/20 24 07/19/2024 CBC lymphocytes # 2.4 x10 Not Available [facility] [address] [facility] 1, [place], [address], 07/19/2024 12:04:01 07/19/2007/19/2024 CBC monocytes # 0.7 x10 Not Avai lable [facility] [address] [facility], [place], [address], 07/19/2024 12:04:01 07/19/2007/19/2024 CMP (MALE ) glucose 100.0 mg/dL 60.0-9 9.0 high Not Available [facility] [address] [facility], [place], [address], 07/19/2024 14:31:02 07/19/20 24 07/19/2024 CMP (MALE ) BUN (blood urea nitrogen) 13.0 mg/dL 10.0-2 6.0 Not Available [facility] [address] [facility], [place], [address], 07/19/2024 14:31:02 07/19/20 24 07/19/2024 CMP (MALE ) creatinine (serum) 1.0 mg/dL 0.4-1. 5 Not Available [facility] [address] [facility], [place], [address], 07/19/2024 14:31:02 07/19/20 24 07/19/2024 CMP (MALE ) BUN/creatini ne ratio 13.00 ratio Not Available [facility] [address] [facility], [place], [address], 07/19/2024 14:31:02 07/19/20 24 07/19/2024 CMP (MALE ) eGFR calculated 75.8 Not Available [facility] [address] [facility] 1, [place], [address], 07/19/2024 14:31:02 07/19/20 24 07/19/2024 CMP (MALE ) total protein 7.7 g/dL 6.0-8. 5 Not Available [facility] [address] [facility], [place], [address], 07/19/2024 14:31:02 07/19/20 24 07/19/2024 CMP (MALE ) total bilirubin 0.9 mg/dL 0.2-1. 3 Not Available [facility] [address] [facility] [address] [address], [place], [address], 07/19/2024 14:31:02 07/19/20 24 07/19/2024 CMP (MALE ) albumin 4.6 g/dL 3.5-5. 5 Not Available [facility] [address] [facility], [place], [address], 07/19/2024 14:31:02 07/19/20 24 07/19/2024 CMP (MALE ) globulin 3.1 calc Not Available [facility] [address] [facility], [place], [address], 07/19/2024 14:31:02 07/19/20 24 07/19/2024 CMP (MALE ) AST (SGOT) 21.0 U/L 0.0-46 .0 Not Available [facility] [address] [facility], [place], [address], 07/19/2024 14:31:02 07/19/20 24 07/19/2024 CMP (MALE ) altv (SGPT) 15.0 U/L 13.0-6 9.0 normal Not Available [facility] [address] [facility], [place], [address], 07/19/2024 14:31:02 07/19/20 24 07/19/2024 CMP (MALE ) A/G ratio 1.5 ratio Not Available Norm [facility] [address] [facility], [place], [address], 07/19/2024 14:31:02 07/19/20 24 07/19/2024 CMP (MALE ) ALP phos 79.0 U/L 30.0-1 40.0 normal Not Available [facility] [address] [facility], [place], [address], 07/19/2024 14:31:02 07/19/20 24 07/19/2024 CMP (MALE ) calcium 9.9 mg/dL 8.4-10 .5 Not Available [facility] [address] [facility], [place], [address], 07/19/2024 14:31:02 07/19/20 24 07/19/2024 CMP (MALE ) sodium 139.0 mmol/ L 136.0- 145.0 Not Available [facility] [address] [facility], [place], [address], 07/19/2024 14:31:02 07/19/2007/19/2024 CMP (MALE ) potassium 4.6 mmol/ L 3.5-5. 1 Not Available [facility] [address] [facility], [place], [address], 07/19/2024 14:31:02 07/19/20 24 07/19/2024 CMP (MALE ) chloride 102.0 mmol/ L 98.0-1 10.0 normal Not Available [facility] [address] [facility], [place], [address], 07/19/2024 14:31:02 07/19/20 24 07/19/2024 CMP (MALE ) C02 30.0 mmol/ L 22.0-3 1.0 Not Available [facility] [address] [facility], [place], [address], 07/19/2024 14:31:02 07/19/20 24 07/19/2024 CMP (MALE ) anion gap 7.0 calc Not Available [facility] [address] [facility], [place], [address], 07/19/2024 14:31:02 07/19/20 24 07/19/2024 CMP (MALE ) osmolality 287.3 calc Not Available [facility] [address] [facility], [place], [address], 07/19/2024 14:31:02 07/19/20 24 07/20/2024 PSA, TOTAL PSA, total 0.85 NG/mL < or = 4.00 normal The total PSA value from this assay syste m is stand ardiz ed again st the WHO stand lavell. The test resul t will be appro ximat jose 20% lower when ryley red to the equim olar- stand ardiz ed total PSA (Vargas man Coult er). Ryley rison of seria l PSA resul ts shoul d be inter prete d with this fact in mind. This test was perfo rmed using the [employer] ns chemi lumin escen t metho d. Value s obtai abdiaziz from diffe rent assay metho ds canno t be used inter munoz eably . PSA level s, regar dless of value , shoul d not be inter prete d as absol vicenta evide nce of the prese nce or absen ce of disea se. Not Available [facility] [address] [place], [address], 07/20/2024 06:33:27 07/19/20 24 07/19/2024 TSH, serum or plasm a TSH 1.81 uIU/m L 0.49-3 [address] [facility] ([facility]) [address] [place], [address], 07/19/2024 11:13:15 Result Notes None recorded. 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 5 10:00:03 History of angiopla sty 173148684 Completed 2024 ADINA HAEFFNER null, [facility] 5 16:07:32 Coronary arterios clerosis 94965539 Active ADINA HAEFFNER null, [facility] 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 5 10:00:38 Hernia of abdomina l cavity 69325672 Completed 202010/28/2020 HERNIA - Status is Inactive ; Story: left groin; Recorded 10/28/19 8:52AM by Angelika Johnson PA-C, Annotati on/Adden dum; Promoted ; acuity set as *; Not Available [facility] 3 03:16:13 Syncope and collapse 085869714 Completed 202010/28/2020 NEAR SYNCOPE - Status is Resolved ; Resolved Date: 10/28/19; Recorded 10/28/19 8:54AM by Angelika Johnson PA-C, Annotati on/Adden dum; Promoted ; acuity set as *; Not Available [facility] 3 03:16:14 Retentio n of urine 871462760 Completed 202010/28/2020 URINARY RETENTIO N - Status is Resolved ; Resolved Date: 10/28/19; 10/28/19 8:54AM by Angelika Johnson PA-C, Annotati on/Adden dum; Promoted ; acuity set as *; Not Available [facility] 3 03:16:14 Carotid artery occlusio n 213837687 Completed 202010/28/2020 CAROTID STENOSIS , BILATERA L - Status is Resolved ; Resolved Date: 10/28/19; Recorded 10/28/19 8:54AM by Angelika Johnson PA-C, Annotati on/Adden dum; Promoted ; acuity set as *; Not Available [facility] 3 03:16:14 Kidney stone 02488239 Completed 202010/28/2020 KIDNEY STONES - Status is Inactive ; 10/28/19 8:52AM by Angelika Johnson PA-C, Annotati on/Adden dum; Promoted ; acuity set as *; Not Available [facility] 3 03:16:15 Primary malignan t neoplasm of skin 18933911 Completed 202010/28/2020 SKIN CANCER - Status is Resolved ; Resolved Date: 10/28/19; 10/28/19 8:54AM by Angelika Johnson PA-C, Annotati on/Adden dum; Promoted ; acuity set as *; Not Available [facility] 3 03:16:15 Gouty arthropa thy 203786694 Completed 202008/05/2021 GOUT, ARTHRITI S - Status is Inactive ; Recorded 08/05/20 11:24AM by Angelika Johnson PA-C, Annotati on/Adden dum; Promoted ; acuity set as *; Not Available [facility] 3 03:16:14 Hyperten sive disorder 92454646 Active 2021 HYPERTEN SARITA; Recorded 08/31/20 22 1:24PM by Angelika Johnson PA-C, Office Visit; Promoted ; acuity set as *; [facility] 5 10:00:35 Squamous cell carcinom a of skin 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 5 10:01:03 Hyperlip idemia 21510951 Active 2021 HYPERLIP IDEMIA; Recorded 08/31/20 1:24PM by Angelika Johnson PA-C, Office Visit; Promoted ; acuity set as *; ADINA mancera [facility] 5 10:00:31 Systolic heart failure 262117522 Active 2021 SYSTOLIC CHF WITH REDUCED LEFT VENTRICU LAR FUNCTION , NYHA CLASS 2; Recorded 08/31/20 1:24PM by Angelika Johnson PA-C, Office Visit; Promoted ; acuity set as *; ADINA mancera [facility] 5 10:01:06 Coronary atherosc lerosis 534938627 Active 2021 CORONARY ARTERY DISEASE; Recorded 08/31/20 1:24PM by Angelika Johnson PA-C, Office Visit; Promoted ; acuity set as *; ADINA mancera [facility] 5 10:00:16 Large prostate 043636645 Active 2021 BPH (BENIGN PROSTATI C HYPERPLA FRED); Recorded 08/31/20 1:24PM by Angelika Johnson PA-C, Office Visit; Promoted ; acuity set as *; ADINA mancera [facility] 5 10:00:41 Myocardi al infarcti on 84387535 Completed 202108/31/2022 MYOCARDI AL INFARCTI ON - Status is Inactive ; Recorded 08/31/20 1:23PM by Angelika Johnson PA-C, Annotati on/Adden dum; Promoted ; acuity set as *; ADINA mancera [facility] 5 16:08:01 Gastroes ophageal reflux disease 307182248 Active 2021 GERD (GASTROE SOPHAGEA L REFLUX DISEASE) ; Recorded 08/31/20 22 1:24PM by Angelika Johnson PA-C, Office Visit; Promoted ; acuity set as *; [facility]:00:22 Acute bronchit is 28739774 Completed 202210/18/2024 Removal Reason: [facility] 09:59:59 Problem Notes None recorded. Procedures Surgical History Date Name Laterality Status Provider Name and Address Organization Details Recorded Time procedure on heart completed Kenyetta Clifford [facility], Emily 02/21/2024 10:34:32 open heart surgery completed ANGELIKA JOHNSON PA-C [address] [place] [address], [id number], LJoeLJoeCJoe 03/13/2024 09:54:19 operation on heart valve completed [facility], LJoeLJoeCJoe 02/21/2024 10:37:21 Pacemaker completed [facility] 02/21/2024 10:37:26 Stent completed [facility], LJoeLJoeCJoe 02/21/2024 10:37:42 Hernia Repair completed [facility], L.LJoeC. 02/21/2024 10:38:07 Imaging Results None recorded. Procedure Notes None recorded. Medical Equipment None Reported. Allergies Allergen ID Allergen Name Allergen Category Reaction Reaction Severity Criticality Documentation Date Start Date Code Code System Note Provider Name and Address Organization Details Recorded Time 2552 Product containin g penicilli n (product) medicatio n rash mild low 01/07/2023 84306 8001 SN[facility]ED [facility], Emiyl 4 10:35:34 04680 penicilli n G sodium medicatio n rash Not available Not available 04/02/2023 9900 RxNorm Leigh [place] [facility], [facility], [facility] 4 10:35:29 Medications Name Sig Start Date Stop Date Status Note LastModified by Organization Details LastModified Time furosemid e 40 mg tablet TAKE 1 TABLET BY MOUTH EVERY DAY 02/20 completed Not Available Not Available Not Available promethaz ine-DM 6.25 mg-15 mg/5 mL oral syrup every six hours, as needed 06/06 completed VO AT/tg; Recorded 08/13/20 22 8:29AM by Gretta Roberts, Office Visit; Refill Quantity : 0; Not Available Not Available Not Available doxycycli ne hyclate 100 mg capsule Take 1 capsule twice a day by oral route for 10 days. 02/13 completed Not Available Not Available Not Available enalapril maleate 10 mg tablet 02/20 completed Not Available Not Available Not Available acitretin 10 mg capsule take 1 capsule BY MOUTH EVERY DAY active Not Available Not Available No t Available potassium chloride ER 8 mEq capsule,e xtended release take 1 capsule BY MOUTH EVERY DAY with furosemi de 07/19 completed Not Available Not Available Not Available cetirizin e 10 mg tablet TAKE 1 TABLET BY MOUTH EVERY DAY 02/19 completed Not Available Not Available Not Available azithromy román 250 mg tablet TAKE 2 TABLETS BY MOUTH ON DAY 1, THEN TAKE 1 TABLET DAILY ON DAYS 2-5 02/15 completed Not Available Not Available Not Available hydrocodo ne 5 mg-acetam inophen 325 mg tablet 02/20 completed Not Available Not Available Not Available prednison e 20 mg tablet TAKE 2 TABLETS BY MOUTH EVERY DAY for 7 days 03/13 completed Not Available Not Available Not Available isosorbid e mononitra te ER 30 mg tablet,ex tended release 24 hr TAKE 1 TABLET BY MOUTH EVERY DAY 02/20 completed Not Available Not Available Not Available fluoroura cil 5 % topical cream 02/20 completed Not Available Not Available Not Available Children' s Aspirin 81 mg chewable tablet TAKE ONE TABLET BY MOUTH EVERY DAY active Not Available Not Available No t Available clopidogr el 75 mg tablet TAKE 1 TABLET BY MOUTH EVERY DAY active Not Available Not Available No t Available spironola ctone 25 mg tablet take 1/2 tablet BY MOUTH EVERY DAY active Not Available Not Available No t Available pravastat in 80 mg tablet TAKE 1 TABLET AT BEDTIME 06/06 completed Not Available Not Available Not Available prednisol one acetate 1 % eye drops,jesi pension instill 1 drop INTO LEFT EYE FOUR TIMES DAILY 02/20 completed Not Available Not Available Not Available potassium chloride ER 8 mEq tablet,ex tended release TAKE 1 TABLET BY MOUTH EVERY DAY active Not Available Not Available No t Available tamsulosi n 0.4 mg capsule take 1 capsule BY MOUTH EVERY DAY DIRECTED 04/17 completed Not Available Not Available Not Available cephalexi n 500 mg capsule TAKE ONE CAPSULE BY MOUTH EVERY 6 HOURS FOR 5 DAYS 06/06 completed Not Available Not Available Not Available pantopraz ole 40 mg tablet,de layed release TAKE ONE TABLET BY MOUTH DAILY active Not Available Not Available No t Available neomycin- polymyxin -dexameth 3.5 mg/mL-10, 000 unit/mL-0 .1% eye drops instill 5 drops in right ear TWICE DAILY 02/15 completed Not Available Not Available Not Available nitroglyc kanwal 0.4 mg sublingua l tablet DISSOLVE 1 TABLET UNDER THE TONGUE EVERY 5 MINUTES NEEDED FOR CHEST PAIN. DO NOT EXCEED A TOTAL OF 3 DOSES IN 15 MINUTES. active Not Available Not Available No t Available monteluka st 10 mg tablet TAKE 1 TABLET BY MOUTH AT BEDTIME active Not Available Not Available No t Available mupirocin 2 % topical ointment APPLY A SMALL AMOUNT TOPICALL Y TO THE AFFECTED AREA THREE TIMES DAILY FOR 7 DAYS active Not Available Not Available No t Available furosemid e 20 mg tablet TAKE 1 TABLET BY MOUTH EVERY DAY active Not Available Not Available No t Available levofloxa román 500 mg tablet TAKE 1 TABLET BY MOUTH every 24 hours for 10 days 03/13 completed Not Available Not Available Not Available albuterol sulfate HFA 90 mcg/actua tion aerosol inhaler INHALE TWO PUFFS EVERY 4 HOURS NEEDED 10/18 completed Not Available Not Available Not Available fluticaso ne propionat e 50 mcg/actua tion nasal spray,jesi pension USE 1 SPRAY IN EACH NOSTRIL EVERY DAY active Not Available Not Available No t Available lisinopri l 2.5 mg tablet 02/20 completed Not Available Not Available Not Available Restasis 0.05 % eye drops in a dropperet te instill 1 drop IN EACH EYE TWICE DAILY 02/15 completed Not Available Not Available Not Available rosuvasta tin 40 mg tablet TAKE 1 TABLET BY MOUTH EVERY DAY stop pravasta tin active Not Available Not Available No t Available metoprolo l tartrate 25 mg tablet TAKE 1 TABLET BY MOUTH TWICE DAILY active Not Available Not Available No t Available aspirin daily 06/06 completed 0; Recorded 08/13/20 22 9:30AM by Gretta Roberts, Office Visit; Not Available Not Available Not Available Plavix daily 06/06 completed 0; Recorded 08/13/20 22 9:29AM by Gretta Roberts, Office Visit; Not Available Not Available Not Available enalapril maleate daily 06/06 completed vo ARJUN/tito /regulo; [id number]; Recorded 11/10/19 23 12:41PM by Adina Rogel LPN (Authori nico through Angelika Johnson PA-C), Refill Request; Mail Order Quantity : 90 Tablet; Refill Quantity : 30; Tablet; Not Available Not Available Not Available niacinami de 500 02/20 completed Not Available Not Available Not Available pravastat in at bedtime 06/06 completed ARJUN/tito /KASHIF; [id number]; Recorded 08/13/20 22 8:29AM by Gretta Roberts (Authori nico through Angelika Johnson PA-C), Office Visit; Mail Order Quantity : 90 Tablet; Refill Quantity : 90; Tablet; Not Available Not Available Not Available Multivita mins daily 06/06 completed 0; Recorded 08/13/20 22 8:29AM by Gretta Roberts, Office Visit; Not Available Not Available Not Available Ginkoba daily 06/06 completed 60 mg; 0; Recorded 08/13/20 22 8:29AM by Gretta Roberts, Office Visit; Not Available Not Available Not Available Vitamin B12 Take 1 tablet by mouth daily active Not Available Not Available No t Available ranolazin e ER 500 mg tablet,ex tended release,1 2 hr Take 500 mg by oral route. 02/20 completed Not Available Not Available Not Available saw palmetto 450 mg capsule Take 1 capsule by mouth daily active Not Available Not Available No t Available glucosami ne HCl 1,500 mg tablet Take 1 tablet by mouth daily active Not Available Not Available No t Available Eliquis 5 mg tablet TAKE 1 TABLET BY MOUTH TWICE DAILY active Not Available Not Available No t Available MediHoney (honey) 80 % topical gel Apply 1 applicat ion every day by topical route for 30 days. 2024 active Not Available Not Available Not Avai lable Vitamins Plus Low Iron 27 mg iron-1 mg tablet TAKE ONE TABLET BY MOUTH EVERY DAY FOR FOURTEEN DAYS 06/06 completed Not Available Not Available Not Available Entresto 24 mg-26 mg tablet TAKE 1 TABLET BY MOUTH TWICE DAILY active Not Available Not Available No t Available Vitals Date Recorded Body height Body mass index (BMI) Body weight Oxygen saturation Oxygen saturation in Arterial blood by Pulse oximetry Heart rate Respiratory rate Body temperature Systolic And Diastolic Provider Name and Address Organization Details Last Updated DateTime 5 182.88 cm 29.7 kg/m2 87459.7 3 g 98 % 98 % 76 /min 20 /min 98 [degF] 128/70 mm[Hg] ADINA ROGEL [facility] 5 09:59:14 Date Recorded Body height Body mass index (BMI) Body weight Body temperature Heart rate Oxygen saturation Oxygen saturation in Arterial blood by Pulse oximetry Respiratory rate Systolic And Diastolic Provider Name and Address Organization Details Last Updated DateTime 5 182.88 cm 30.6 kg/m2 841527. 08 g 98.2 [degF] 87 /min 97 % 97 % 17 /min 128/70 mm[Hg] Ayaka Foreman [facility] 5 12:19:13 Date Recorded Body height Body mass index (BMI) Body weight Oxygen saturation Oxygen saturation in Arterial blood by Pulse oximetry Heart rate Respiratory rate Body temperature Systolic And Diastolic Provider Name and Address Organization Details Last Updated DateTime 5 182.88 cm 31.3 kg/m2 926338. 84 g 97 % 97 % 80 /min 18 /min 98 [degF] 120/88 mm[Hg] ADINA ROGEL [facility] 5 09:40:36 Date Recorded Body height Body mass index (BMI) Body weight Oxygen saturation Oxygen saturation in Arterial blood by Pulse oximetry Heart rate Respiratory rate Body temperature Systolic And Diastolic Provider Name and Address Organization Details Last Updated DateTime 4 182.88 cm 29.4 kg/m2 50474.5 4 g 99 % 99 % 72 /min 20 /min 97 [degF] 130/80 mm[Hg] ADINA ROGEL [facility] 4 10:31:45 Social History Question Answer Notes LastModified by [employer] Details LastModified Time Tobacco Smoking Status Never Smoker Leigh Felix mancera [facility] 02/21/2024 10:37:03 What Was The Date Of Your Most Recent Tobacco Screening? 01/27/2025 [email or web address] Information not available 01/27/2025 Sex: Unknown Functional Status Question Answer Note LastModified by [employer] Details LastModified Time Do you use any illicit or recreational drugs? No Information not available 02/21/2024 What is your level of alcohol consumption? Occasional Information not available 02/21/2024 Mental Status None recorded. Family History Nothing Reported. Medical History Condition Response Coronary Artery Disease N Other Y Gout N Kidney Stones N Blood Diseases N Hyperthyroidism N Breast Cancer N Blood Transfusion N Depression N Hypothyroidism N Lung Disease N COPD Y Developmental or Behavioral Disorders N Defects or Inherited Disease N Breast Problem N Difficulty Swallowing N Anesthesia Complications N Anxiety Disorder N Meniere's disease N Muscle, Joint, or Bone Problems N Vision or Eye Problems N Arthritis N Infertility N Polyps N Cancer Y Stroke N Varicosities N Endometriosis N Bladder or Kidney Problems N High Cholesterol Y Liver Disease N Fibromyalgia N Headaches N Kidney Disease N Allergies/Hayfever N Heart Problems Y Ear or Hearing Problems N Hospitalizations N Thyroid Problems N GI Problems N ADD/ADHD N Skin Problems N Eating Disorder N Anemia N Constipation N Mental Illness N Ovarian Cancer N Diabetes N Bedwetting N Seizures/Epilepsy N Tuberculosis N Eczema N Diverticulitis N Abuse/Domestic Violence N Asthma N Reflux/GERD Y Hepatitis N Heart Disease Y Pulmonary Embolism N Pre-Eclampsia N Hypertension Y Chronic Ear Infections N Osteoporosis N Chicken Pox N Autism Spectrum Disorder (ASD) N Thrombophilias N Immunizations Vaccine Type Date Status Note Provider Nam e and Address Organization Details Recorded Time Pneumococcal conjugate PCV20, polysaccharide VTA127 conjugate, adjuvant, PF 3 completed ANGELIKA JOHNSON PA-C [address] [place], [address], [facility] 02/15/2023 11:14:24 Influenza, high-dose, quadrivalent, PF 3 [facility]/28/2024 11:26:58 Influenza, high-dose, trivalent, PF 4 completed Not Available [facility] 02/19/2025 09:36:12 zoster recombinant 2 completed ANGELIKA JOHNSON PA-C [address] [place], [address], [facility] 02/15/2023 10:32:01 zoster recombinant 2 completed ANGELIKA JOHNSON PA-C [address] [place], [address], [facility] 02/15/2023 10:32:01 Influenza, high-dose, quadrivalent, PF 2 completed ANGELIKA JOHNSON PA-C [address] [place], [address], [facility] 02/15/2023 10:32:01 COVID-19, mRNA, LNP-S, PF, 100 mcg/0.5mL dose or 50 mcg/0.25mL dose 1 completed ANGELIKA JOHNSON PA-C [address] [place], [address], [facility] 02/15/2023 10:32:01 COVID-19, mRNA, LNP-S, PF, 100 mcg/0.5mL dose or 50 mcg/0.25mL dose 1 completed ANGELIKA JOHNSON PA-C [address] [place], [address], [facility] 02/15/2023 10:32:01 COVID-19, mRNA, LNP-S, PF, 100 mcg/0.5mL dose or 50 mcg/0.25mL dose 1 completed ANGELIKA JOHNSON PA-C [address] [place], [address], [facility] 02/15/2023 10:32:01 zoster live 3 completed ANGELIKA JOHNSON PA-C [address] [place], [address], [facility] 02/15/2023 10:32:01 Influenza, split virus, trivalent, preservative 0 completed ANGELIKA JOHNSON PA-C [address] [place] [address], [address], [facility] 02/15/2023 10:32:01 Influenza, split virus, quadrivalent, PF 1 completed ANGELIKA JOHNSON PA-C [address] [place], [address], [facility] 02/15/2023 10:32:01 Tdap 6 completed Not Available [facility] 06/06/2023 13:43:10 Influenza, split virus, trivalent, preservative 7 completed Not Available [facility] 06/06/2023 13:43:10 Influenza, split virus, trivalent, preservative 5 completed Not Available [facility] 06/06/2023 13:43:10 Influenza, split virus, trivalent, preservative 8 completed Not Available [facility] 06/06/2023 13:43:10 pneumococcal polysaccharide PPV23 9 completed Not Available [facility] 06/06/2023 13:43:10 Influenza, split virus, trivalent, preservative 4 completed Not Available [facility] 06/06/2023 13:43:10 Influenza, split virus, trivalent, preservative 3 completed Not Available [facility] 06/06/2023 13:43:10 Influenza, split virus, trivalent, preservative 6 completed Not Available [facility] 06/06/2023 13:43:10 Past Encounters Encounter ID Performer Location Encounter Start Date Encounter Closed Date Diagnosis/Indication Diagnosis SNOMED-CT Code Diagnosis ICD10 Code Diagnosis Note [id number] Chava Johnson MD [facility] ([facility]) [address] [place], [place] [address] 01/07/2023 11:31:06 01/07/2023 13:01:02 Acute bronchitis 30852385 J20.9 return if febrile sx worsen or breathing worsensthi s occurred after working out doors shoveling pea gravel and working in a lot of dust for a few days. [id number] ANGELIKA JOHNSON PA-C [facility] ([facility]) [address] [place] [id number] 02/15/2023 09:45:19 02/15/2023 11:35:18 Chronic systolic heart failure 024171351 I50.20 Coronary arteriosclerosis 12921506 I25.110 Obstructiv e sleep apnea syndrome 33556049 G47.33 Administra tion of pneumococcal vaccine 30291281 Z23 Adult heal th examination 569452706 Z00.00 CCA form filled out during today's office visit [id number] NAVID UNDERWOOD NP [facility] ([facility]) [address] [place] [id number] 03/18/2023 18:04:37 03/18/2023 20:05:54 Metal nail puncture wound of skin 332012367 W45.0XXA Advised patient if he is not sure that his tetanus has not been within the last 5 years, he needs to go to the [facility] or get a tetanus here today. Patient believe his tetanus has been within the last 5 years. Discussed taking oral antibiotic as prescribed until completedD iscussed using topical antibiotic as prescribed for 7-10 days.Discu ssed to wash the laceration with soap and water daily.Keep covered if outside to keep wound clean.If you develop any signs of infection such as redness, swelling, increased pain, decreased range of motion, fever, purulent drainage - follow up with PCP or return to walk-in clinic. Return to clinic if any changes, any worsening, any concerns.P atient verbalized understand ing of plan. [id number] Chava Johnson MD [facility] ([facility]) [address] [place] [id number] 06/06/2023 13:42:59 06/06/2023 15:45:36 Stented coronary artery 713438888 Z95.5 Stable angina 891702364 I20.9 Intermitte nt claudication 04427613 I73.9 [id number] ANGELIKA JOHNSON PA-C [facility] ([facility]) [address] [place] [phone] 11/25/2023 11:00:31 11/25/2023 15:29:41 Stable angina 521643572 I20.89 start isosorbide Seeing cardiology in one week. to ER if chest pain does not resolve with one nitro. Chronic sy stolic heart failure 400963173 I50.20 CCA form filled out during today's office visit Peripheral vascular disease 753497101 I73.9 Hyperlipidemia 20590766 E78.5 Essential hypertension 47877837 I10 Multi vess el coronary artery disease 334674527 I25.[address] 9[address]23 Dr. Lam [id number] DARRYN PAULINO [facility] ([facility]) [address] [place] [id number] 02/21/2024 10:31:17 02/21/2024 16:48:13 Acute bacterial bronchitis 332979537 J20.9 Discussed use of antibiotic . Take with food.May use Josh's nasal inserts and also apply on chest. Push oral fluids. [id number] Luiz Abdi DO [facility] ([facility]) [address] [place] [id number] 02/28/2024 11:25:09 02/28/2024 13:09:26 Acute bronchitis 13104257 J20.9 failed initial treatment, high risk due to recent hospitaliz ation. will treat as below. Chronic ob structive pulmonary disease 58937164 J44.9 I counseled pt on diagnosis of acute copd flair up. will start antibiotic s and steroid, use inhalers/n ebs as prescribed . if worsening or no improvemen t in 2-3 days, pt is to f/u or go to ER. [id number] ANGELIKA JOHNSON PA-C [facility] ([facility]) [address] [place] [id number] 03/13/2024 09:15:36 03/13/2024 10:51:45 Orthostatic hypotension 35963242 I95.1 stop the tamsulosin and see if improves his BP dropping and still able to urinate ok. Allergic rhinitis 123312 04 J30.9 salt water gargles tid. Biotene to moisten the mouth. Bilateral tinnitus 94182 89970 102 H93.13 [id number] ANGELIKA JOHNSON PA-C [facility] ([facility]) [address] [place] [id number] 04/17/2024 09:54:10 04/17/2024 10:59:46 Chronic systolic heart failure 575288750 I50.20 monitor for fluid overload with wt gain, swelling and SOB Coronary arteriosclerosis 51928351 I25.110 SP bypass in 4.24 Dr. Lam cardiologbarbie llamas [id number] ANGELIKA JOHNSON PA-C [facility] ([facility]) [address] [place] [id number] 07/19/2024 10:14:34 07/23/2024 09:39:55 Coronary arteriosclerosis 34228159 I25.110 SP bypass in 4.24 Dr. Lam cardiologbarbie llamas Benign pro static hyperplasia 289909683 N40.0 Obstructiv e sleep apnea syndrome 53079795 G47.33 face to face for renewal of CPAP and mask. pt would benefit for continue usage.has daily symptomsEn couraged him to contact his CPAP supplier and have them run a diangnosic on the machine and check the settings to see if working right.We need to get him using his machine nightly again to help with his daily symptoms. [id number] ANGELIKA JOHNSON PA-C [facility] ([facility]) [address] [place] [id number] 10/18/2024 09:45:39 10/18/2024 10:59:53 Chronic systolic heart failure 189666353 I50.20 monitor for fluid overload with wt gain, swelling and SOB Peripheral vascular disease 209819310 I73.9 CCA form filled out during today's office visit Hyperlipidemia 75346721 E78.5 Essential hypertension 74230984 I10 Cardiac pa cemaker in situ 013783038 Z95.0 Coronary arteriosclerosis 79620529 I25.110 SP bypass in 4.24 Dr. Lam cardiologbarbie . Cardiac arrhythmia 17219 7007 I49.5 pacemaker [id number] DARRYN SWARTZ [facility] ([facility]) [address] [place] [id number] 01/27/2025 12:07:39 01/29/2025 11:47:28 Local infection of wound 19367706 T81.49XA Telfa dressing and Coban applied to area. Abx as prescribed for skin infection. Complete full course. Keep site clean and dry. Apply antibiotic ointment as directed. Call [facility] on Tuesday (due to holiday Tuesday) and schedule appt. RTC with any new or worsening symptoms. [id number] ANGELIKA JOHNSON PA-C [facility] ([facility]) [address] [place] [id number] 5 02/19/2025 09:35:21 02/26/2025 12:53:53 Wound dehiscence 354186863 T81.30XA reviewed wet to dry dressings to get thick scabbing off. then start medihoney cover with non stick bandage. 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 Bilateral sciatica 47249 92461 4789190 M54.31 M54.32 worse at hs with sleeping. better in chair. no and symptoms thru the day. declines PT. will monitor for now. Bilateral calf pain 1563 136272 1209158 M79.661 M79.662 Coronary arteriosclerosis 59858111 I25.110 SP bypass in 4. Dr. Lam cardiologbarbie [facility] [id number] ANGELIKA JOHNSON PA-C [facility] ([facility]) [address] [place] [address] 03/01/2025 09:04:32 03/04/2025 09:16:49 Long-term current use of drug therapy 716444253 Z79.899 Health Concerns Section Related Observation LastModified by Organization Detai ls LastModified Time None Recorded Concern Status LastModified by Organization Details LastModified Time None Recorded Advance Directives Directive None Recorded Payers Insurance Date Sequence Insurance Name Policy Number Policy Mane Covered Member ID Mane Member ID Guarantor Name 03/01/2025 1 [employer] (MEDICARE REPLACEMENT/AD VANTAGE - PPO) Ashish Armijo [id number] Ashish Armijo 02/28/2024 1 [place] (MEDICARE REPLACEMENT HMO) [id number] Ashish Armijo [id number] Ashish Armijo Notes Date Note Type Note Provider Name and Address Organization Details Recorded Time 4 text/html Obstructive Sleep ApneaReported by PatientHPIFor associated symptoms, patient reportsawakening short of breath,daytime sleepiness,suddenly falling asleep during the day,excess napping,impaired work performance,loud snoring,gasping for air,witnessed apnea, andpoor concentration. For severity, patient reportssevere. For timing, patient reportschronic. For duration, patient reports___years. For context, patient reportscpap intolerance,history of heart attack,hypertension,obser edie apnea,cardiovascular disease, andimpaired neurocognitive function. For aggravating factors, patient reportspositioning. For alleviating factors, patient reportsnasal strips. For prior tests and treatments, patient reportspolysomnographyand cpap.I don;t think my CPAP is working right. will blow the mask right off my face. HypertensionReported by PatientHPIFor quality, patient reportspressureandweaknes s. For severity, patient reportsgrade 1 (130-139/80-89). For duration, patient reportshas noted for years. For onset/timing, patient reportsgradual onset. For alleviating factors, patient reportsrestandmedication. For self care, patient reportsnot under emotional stress. For associated symptoms, patient reportsno shortness of breath,no fatigue,no palpitations,no decrease in exercise tolerance, andno snoring. Coronary Artery Disease F/UReported by PatientHPIFor context, patient reportscontrolled hypertensionbut reportsnon-smoker. For severity, patient reportsno chest discomfort with daily activitiesandhas not used nitroglycerin. For treatment, patient reportsadheres to lifestyle changesandadheres to medication therapies. For associated symptoms, patient reportsno chest pain,no neck pain,no dyspnea with exertion, andno dizziness. I am falling asleep a lot. I stopped the cpap it was such a struggle, it goes for about 30 minutes and then I got a blast of air, that stays blowing hard and I cant tolerate it, says he still stops breathing she bought a chin strap and its helping some. ANGELIKA JOHNSON PA-C [address] [place] [address], [address], [facility], Emily 07/20/2024 15:19:51 5 text/html Obstructive Sleep ApneaReported by PatientHPIFor severity, patient reportsmoderate. For timing, patient reportsgradual,chronic, andyearly. For duration, patient fibawva9xwqyi,frequent, andcontinuous. For context, patient reportsadequate sleep,history of heart attack,hypertension,obser edie apnea, andcardiovascular disease. For alleviating factors, patient reportspositive airway pressure devices. Care Management - Coronary Artery Disease (CAD)Reported by PatientHPIFor associated symptoms, patient reportsshortness of breathbut reportsno chest pain,no left arm pain, andno back pain. For prognosis, patient reportsexpected outcome: improveandprognosis: good. For self care, patient reportsblood pressure goal: 130/75andusing a beta hugo. For severity, patient reportssymptoms are improving.wishes he had better stamina. very active for his age. HAVENT BEEN ABLE TO USE CPAP LAST 2 NIGHTS THE MASK IS GIVING ME PROBLEMS I WILL TALK TO LOR AT THE [place] ABOUT IT HE TRIES TO HELP ME.Cardiology in November. ANGELIKA JOHNSON PA-C [address] [place], [address], [facility], Nguyen. 10/18/2024 10:59:49 5 text/html ROS as noted in the HPI walk in ptPt had skin cancer removed 6 weeks ago and then 3 weeks ago he had stitches removed from the inside of left knee, it is now starting to open up. Patient states that after this he was placed on doxycycline. He then used steri strips to the area but today area is opening further and draining. DARRYN SWARTZ [address] [place], [address], [facility], Emily 01/27/2025 12:49:51 5 text/html HypertensionReported by PatientHPIFor quality, patient reportspressureandweaknes s. For context, patient reportsexertionandpositio nal. For severity, patient reportselevated (120-129/<80). For duration, patient reportshas noted for years. For onset/timing, patient reportsgradual onset. For alleviating factors, patient reportsmedication. For self care, patient reportsblood pressure goal: 120/70. 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
--- NOTE | 2025-03-29 02:22 | XRR_ITS ---
PROCEDURE INFORMATION: Exam: XR Chest Exam date and time: 03/29/2025 2:27 AM Age: 84 years old Clinical indication: Pain; Chest pressure; Shocked by life vest; Additional info: Chest pain TECHNIQUE: Imaging protocol: Radiologic exam of the chest. Views: 1 view. COMPARISON: CR XR chest 1V portable [id number] 12/22/2023 3:18 PM FINDINGS: Tubes, catheters and devices: Dual-lead cardiac pacer via left subclavian approach is stable in position with the lead tips in the expected locations of the right atrium and right ventricle. Lungs: Stable calcified granulomas in both lungs. No focal consolidation. No pulmonary edema. Pleural spaces: No pleural effusion. No pneumothorax. Heart/Mediastinum: Stable marked enlargement of the cardiac silhouette. Mediastinal contours are unremarkable. Vasculature: Stable vascular calcifications in the aorta. Bones/joints: Poststernotomy changes in the chest. Bones are diffusely osteopenic. Degenerative changes in the spine and shoulders. Osseous findings are stable. XR/XR chest 1V portable [id number] IMPRESSION: 1. No acute cardiopulmonary process. 2. Incidental/nonacute findings are listed in the report.
--- NOTE | 2025-03-29 02:23 | ED_ITS ---
HPI - General Adult 2 General: Chief complaint: Arrhythmia/Palpitations Stated complaint: shocked by life vest Time Seen by Provider: 03/29/25 02:22 History of Present Illness: 84-year-old male presents to the emergen cy room with complaints of his LifeVest having discharged. Patient has severe diffuse cardiomyopathy with an EF on the last echo that was done of 29% with dilation of the left ventricle. He has a LifeVest in place he also has a pacemaker. Tonight while he was sleeping his LifeVest discharged. He has blue dye on the vest and on his chest from the discharge. He has replaced it with another vest. He usually follows with Dr. Lam. He is having no chest pain at this time Associated symptoms: Deny chest pain, dyspnea or rash Related Data Home Medications ?Medication ?Instructions ?Recorded ?Confirmed pantoprazole 40 mg tablet,delayed 40 mg PO DAILY 10/0111/22/24 release cyanocobalamin (vitamin B-12) 5,000 mcg PO DAILY 07/1311/22/24 5,000 mcg capsule saw palmetto 450 mg capsule 450 mg PO DAILY 07/13/22 0 11/22/24 cetirizine 10 mg tablet (Zyrtec) 10 mg PO DAILY Allerg y Symptoms 02/16/23 11/22/24 fluticasone propionate 50 1 spray intranasal BID PRN 0 11/12/23 11/22/24 mcg/actuation nasal ALLERGIES spray,suspension [id number]-zzmzzheii-hce C-Mn 500 1 cap PO DAILY 05/2911/22/24 mg-400 mg capsule rosuvastatin 40 mg tablet 40 mg PO DAILY 11/12/2311/04 acitretin 10 mg capsule 10 mg PO DAILY 01/11/2505/30 Previous Rx's ?Medication ?Instructions ?Recorded furosemide 20 mg tablet 20 mg PO DAILY #90 tabs 02/03 09/28 clopidogrel 75 mg tablet 75 mg PO DAILY #90 tabs 05/06 apixaban 5 mg tablet (Eliquis) 5 mg PO BID #180 tabs 0 12/26/24 nitroglycerin 0.4 mg sublingual 0.4 mg sublingual Q5M PRN chest 01/11/25 tablet (Nitrostat) pain #25 tabs spironolactone 25 mg tablet 12.5 mg (1/2 x 25 mg) PO D AILY #90 02/22/25 tabs metoprolol tartrate 25 mg tablet See Rx Instructions . Route 02/27/25 .COMPLEX #180 tabs sacubitril 24 mg-valsartan 26 mg See Rx Instructions . 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 Pacemaker Medtronic dual chamber 04/15/23 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 Tobacco abuse, in remission ASHD (arteriosclerotic heart disease) Myocardial infarction Dyslipidemia HTN (hypertension) COPD (chronic obstructive pulmonary disease) Surgical History S/P angioplasty with stent Family History Father , AGE 90 CAD (coronary artery disease) Cancer COLON Mother Stroke Social History Smoking and tobacco/nicotine status: former use of tobacco/nicotine Quit status (tobacco/nicotine): has quit using Alcohol intake: former Substance/Drug Use: never Household members: spouse Marital status: service: Yes Current occupational status: retired Current gender identity: Male Betsey/Hindu: Anglican Physical Exam 2 Const: COMMON NORMALS: no acute distress GENERAL APPEARANCE: cooperative and comfortable ORIENTATION/CONSCIOUSNESS: Yes awake, Yes oriented to person, Yes oriented to place and Yes oriented to time HENMT: COMMON NORMALS: normocephalic, atraumatic and hearing grossly normal bilaterally HEAD & SCALP: normocephalic and atraumatic Resp: COMMON NORMALS: normal respiratory effort, No retractions, No use of accessory muscles and clear to auscultation bilaterally AUSCULTATION: clear to auscultation bilaterally Cardio: COMMON NORMALS: regular rate, regular rhythm and No murmurs present (Cardio) RATE: regular rate RHYTHM: regular rhythm GI: COMMON NORMALS: Soft to palpation and No hepatosplenomegaly present A USCULTATION: Yes normoactive bowel sounds PALPATION: Yes Soft to palpation, No Tenderness to palpation present (GI), No Guarding due to palpation present (GI) and Yes No hepatosplenomegaly present Extremity: COMMON NORMALS: normal to inspection, capillary refill normal, no clubbing, cyanosis or edema, no calf tenderness and no pedal edema Neuro: SENSORIUM/ORIENTATION: Yes oriented to person, Yes oriented to place and Yes oriented to time Skin: COMMON NORMALS: no rashes or lesions noted GENERAL SKIN EXAM: no rashes or lesions noted Course 2 Vital Signs: Vital signs: Vital Signs Pulse Rate 76 03/29/25 02:25 Respiratory Rate 20 H 03/29/25 02:25 Blood Pressure 148/86 03/29/25 02:25 Pulse Oximetry 93 03/29/25 02:25 Oxygen Delivery Me thod Room Air 03/29/25 02:21 [facility] - General Adult Medical Decision Making Patient clearly after discharge from LifeVest he still has a blue gel on his chest. He put a new LifeVest on the gel from the previous discharge has discolored the current vest. We are working on analyzing the vest. We did do a pacemaker interrogation. He is not had any other ventricular arrhythmias cardiac labs pending discussed with Dr. Ring will admit observe he will see the patient in the morning. He does not recommend any anticoagulation unless he has a positive delta troponin. Also discussed Dr. Batista orders written Medical Records I reviewed the patient's medical records. CONCLUSIONS Severe diffuse hypokinesia of the left ventricle with ejection fraction of 29%. Mildly dilated LV cavity. Mild coronary left-ventricular hypertrophy. Aortic leaflets appears to be thickened. Could not be visualized well. There is no pericardial effusion. Estimated RA pressure of 10 mmHg Compared to the study from 12/23/2023, no significant change in the LV ejection fraction. Dr Karolina Lam MD [facility] (Electronically Signed) Final Date: 30 December 2024 Lab Data I reviewed the patient's lab results. 03/29/25 02:21 03/29/25 02:21 Laboratory Results WBC 5.92 10^3/uL (3.29-11.43) 03/29/25 02:21 RBC 5.53 10^6/uL (3.85-5.65) 03/29/25 02:21 Hgb 15.50 g/dL (11.27-16.99) 03/29/25 02:21 Hct 47.0 % (37-53) 03/29/25 02:21 MCV 85.0 fl (82-101) 03/29/25 02:21 MCH 28.0 pg (27-33) 03/29/25 02:21 MCHC 33.0 g/dL (30-55) 03/29/25 02:21 RDW 13.7 % (12.1-15.1) 03/29/25 02:21 Plt Count 203 10^3/cmm (157-399) 03/29/25 02:21 MPV 9.6 fL (7.4-10.4) 03/29/25 02:21 Neut % (Auto) 40.0 % 03/29/25 02:21 Lymph % (Auto) 43.6 % 03/29/25 02:21 Pershing % (Auto) 13.5 % 03/29/25 02:21 Eos % (Auto) 1.9 % 03/29/25 02:21 Baso % (Auto) 0.7 % 03/29/25 02:21 Neut # (Auto) 2.37 10^3/uL (1.8-7.7) 03/29/25 02:21 Lymph # (Auto) 2.6 10^3/uL (0.8-4.8) 03/29/25 02:21 Pershing # (Auto) 0.8 10^3/uL (0.2-0.9) 03/29/25 02:21 Eos # (Auto) 0.1 10^3/uL (0.0-0.8) 03/29/25 02:21 Baso # (Auto) 0.0 10^3/uL (0.0-0.1) 03/29/25 02:21 Nucleated RBC % (auto) 0 % 03/29/25 02:21 Nucleated RBCs # 0.0 /100WBC 03/29/25 02:21 Sodium 138 mmol/L (136-145) 03/29/25 02:21 Potassium 4.1 mmol/L (3.5-5.1) 03/29/25 02:21 Chloride 100 mmol/L (98-107) 03/29/25 02:21 Carbon Dioxide 27 mmol/L (22-29) 03/29/25 02:21 Anion Gap 15.1 (5-19) 03/29/25 02:21 BUN 17 mg/dL (8-23) 03/29/25 02:21 Creatinine 1.1 mg/dL (0.7-1.2) 03/29/25 02:21 GFR Calculation Not Reportable 03/29/25 02:21 Glucose 89 mg/dL (65-115) 03/29/25 02:21 Calculated Osmolality 287 mOsm/kg (285-295) 03/29/25 02:21 Calcium 9.4 mg/dL (8.5-10.5) 03/29/25 02:21 Total Bilirubin 0.5 mg/dL (0.15-1.2) 03/29/25 02:21 AST 14 U/L (0-40) 03/29/25 02:21 ALT 14 U/L (0-41) 03/29/25 02:21 Alkaline Phosphatase 74 U/L (40-130) 03/29/25 02:21 Troponin T Baseline 20 ng/L (0-15) H 03/29/25 02:21 Total Protein 7.1 g/dL (6.6-8.7) 03/29/25 02:21 Albumin 4.1 g/dL (3.5-5.2) 03/29/25 02:21 Globulin 3.0 g/dL (1.3-4.6) 03/29/25 02:21 All radiology interpretation(s) finalized by discharge EKG Data EKG 1: Interpretation: Initial EKG paced rhythm with a rate of 73. No further interpretation possible Discharge Plan Discharge Patient Disposition: Placed in Observation Clinical Impression: Ventricular arrhythmia, Presence of permanent cardiac pacemaker, Ischemic cardiomyopathy, ASHD (arteriosclerotic heart disease), Uses LifeVest defibrillator Coding Level of Care Code ED Soccer Player for Chg Patria
[2025-03-29 02:34] LABS: Hematocrit 47.0 % (37-53); Hemoglobin 15.50 g/dL (11.27-16.99); Mean Corpuscular HGB Conc 33.0 g/dL (30-55); Mean Corpuscular Hemoglobin 28.0 pg (27-33); Mean Corpuscular Volume 85.0 fl (82-101); Nucleated Red Blood Cells % 0 %; Platelet Count 203 10^3/cmm (157-399); Red Blood Count 5.53 10^6/uL (3.85-5.65); White Blood Count 5.92 10^3/uL (3.29-11.43)
[2025-03-29 02:50] LABS: Alanine Aminotransferase 14 U/L (0-41); Albumin Level 4.1 g/dL (3.5-5.2); Alkaline Phosphatase 74 U/L (40-130); Anion Gap 15.1 (5-19); Aspartate Amino Transferase 14 U/L (0-40); Blood Urea Nitrogen 17 mg/dL (8-23); Calcium 9.4 mg/dL (8.5-10.5); Carbon Dioxide 27 mmol/L (22-29); Chloride 100 mmol/L (98-107); Creatinine Clr Calc Pharmacy 57.2962; Globulin 3.0 g/dL (1.3-4.6); Glucose 89 mg/dL (65-115); Osmolality Calculated 287 mOsm/kg (285-295); Potassium 4.1 mmol/L (3.5-5.1); Sodium 138 mmol/L (136-145); Total Protein 7.1 g/dL (6.6-8.7)
[2025-03-29 02:51] LABS: Troponin(5th) Baseline 20 ng/L (0-15)
--- NOTE | 2025-03-29 04:33 | ECG_ITS ---
[facility] Test Date: 2025-03-29 Pat Name: Ashish Armijo Department: Room: ED Gender: Male Assignment Editor: : 1940 Requested By: Juma Sandoval Order Number: [id number] Kimberly MD: Amilcar Ring M.D. Measurements Intervals [place] Rate: 62 P: 98 NC: 176 QRS: -86 QRSD: 242 T: 83 QT: 495 QTc: 506 Interpretive Statements ELECTRONIC ATRIAL PACEMAKER ELECTRONIC VENTRICULAR PACEMAKER ABNORMAL RHYTHM ECG Compared to ECG 03/29/2025 02:19:59 No significant changes Electronically Signed On 03-30-2025 08:51:18 CDT by Amilcar Ring M.D. [id number]
[2025-03-29 04:38] LABS: Troponin 5 2HR 18.88 ng/L (0-15)
[2025-03-29 04:40] LABS: Troponin 5 2HR Delta -1.12 ABS# (0-10)
--- NOTE | 2025-03-29 04:55 | PM.HP ---
Providers/Chief Complaint Admitting Physician: Carly Batista MD Primary Care Provider: Angelika Johnson Chief Complaint: shocked by life vest History of Present Illness Ashish Armijo is a 84 year old male with a past medical history of coronary artery disease, dyslipidemia, cardiomyopathy, history of A-fib/a flutter, history of PPM. Patient has been on a LifeVest for the past 2 months without any events. Last evening patient's LifeVest started to alert. Patient states that he had in all 3 episodes last evening with the LifeVest alerted him. 1 of these episodes resulted in delivery of shock, 2 episodes were delayed . Patient denies any chest pain during these episodes however states that he starts to feel as if his head is heavy and some generalized weakness at this time. Assessment patient is currently in a paced rhythm with heart rate at 60 bpm. Vital signs are stable with a blood pressure of 113/79 mmHg. pacemaker interrogation report has been requested. Review of Systems General: Reports: 10 or more systems reviewed and unremarkable except in HPI and below Const: Denies: fever(s), chills or body aches Eyes: Denies: change in vision, blurry vision or photophobia ENMT: Reports: hoarseness; Denies: throat pain, enlarged tonsils, odynophagia or nasal congestion Card: Denies: chest pain, palpitations, irregular heart rhythm, edema, swelling of feet/ankles, lightheadedness, pre-syncope, dyspnea on exertion or orthopnea Resp: Denies: dyspnea, productive cough, non-productive cough, wheezing, stridor, pain on inspiration, change in phlegm color, hemoptysis or chest congestion GI: Denies: abdominal pain, nausea, vomiting, hematemesis, coffee ground emesis, dysphagia, heartburn, diarrhea, constipation, GI cramping, change in stool character, hematochezia or melena : Denies: flank pain, dysuria, urinary frequency, urinary urgency, urinary hesitancy or hematuria Musc: Denies: neck pain, back pain, extremity pain, joint swelling, joint warmth or deformity Neuro: Denies: headache(s), numbness in extremities, weakness in extremities, sensory changes, difficulty walking, frequent falls, dizziness, vertigo, behavioral changes, Slurred speech present or seizure-like activity Psych: Denies: anxiety, depression, suicidal ideation or homicidal ideation Endo: Denies: polyuria, polydipsia, tired all the time, cold intolerance or hot flashes Cheo/Lymph: Denies: easy bruising or easy bleeding Medications/Allergies Home Medications ?Medication ?Instructions ?Recorded ?Confirmed ?Last Taken ?Type pantoprazole 40 mg tablet,delayed 40 mg PO DAILY 10/01/19 11/22/24 12/22/23 History release cyanocobalamin (vitamin B-12) 5,000 mcg PO DAILY 07/13/22 11/22/24 12/22/23 History 5,000 mcg capsule saw palmetto 450 mg capsule 450 mg PO DAILY 07/13/22 11/22/24 12/22/23 History cetirizine 10 mg tablet (Zyrtec) 10 mg PO DAILY Allergy Symptoms 02/16/23 11/22/24 12/22/23 History fluticasone propionate 50 1 spray intranasal BID PRN 11/12/23 11/22/24 Unknown History mcg/actuation nasal ALLERGIES spray,suspension gehltelgvwl-iwbngpnvg-zad C-Mn 500 1 cap PO DAILY 11/12/23 11/22/24 12/22/23 History mg-400 mg capsule rosuvastatin 40 mg tablet 40 mg PO DAILY 11/12/23 11/22/24 12/22/23 History furosemide 20 mg tablet 20 mg PO DAILY #90 tabs 02/14/24 11/22/24 Unknown Rx clopidogrel 75 mg tablet 75 mg PO DAILY #90 tabs 05/15/24 11/22/24 Unknown Rx apixaban 5 mg tablet (Eliquis) 5 mg PO BID #180 tabs 12/26/24 12/26/24 Unknown Rx acitretin 10 mg capsule 10 mg PO DAILY 01/11/25 01/11/25 Unknown History nitroglycerin 0.4 mg sublingual 0.4 mg sublingual Q5M PRN chest 01/11/25 01/11/25 Unknown Rx tablet (Nitrostat) pain #25 tabs spironolactone 25 mg tablet 12.5 mg (1/2 x 25 mg) PO DAILY #90 02/22/25 Unknown Rx tabs metoprolol tartrate 25 mg tablet See Rx Instructions .Route 02/27/25 Unknown Rx .COMPLEX #180 tabs sacubitril 24 mg-valsartan 26 mg See Rx Instructions .Route 03/04/25 Unknown Rx tablet (Entresto) .COMPLEX #60 tabs Allergies Allergy/AdvReac Type Severity Reaction Status Date / Time Penicillins Allergy Unknown Unknown Verified 03/25/25 15:13 PFSH Acute PFSH: Medical History Chest pain Atherosclerotic heart disease jamul coronary artery w/angina pectoris Pacemaker Medtronic dual chamber 04/15/23 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 Tobacco abuse, in remission ASHD (arteriosclerotic heart disease) Myocardial infarction Dyslipidemia HTN (hypertension) COPD (chronic obstructive pulmonary disease) Surgical History S/P angioplasty with stent Family History Father , AGE 90 CAD (coronary artery disease) Cancer COLON Mother Stroke Social History Smoking and tobacco/nicotine status: former use of tobacco/nicotine Quit status (tobacco/nicotine): has quit using Alcohol intake: former Substance/Drug Use: never Household members: spouse Marital status: service: Yes Current occupational status: retired Current gender identity: Male Betsey/Islam: Anabaptism Vitals/I&O/Wt Last Vital Signs Pulse 63 03/29/25 03:30 Resp 15 03/29/25 03:30 BP 113/63 03/29/25 03:30 Pulse Ox 95 03/29/25 03:30 O2 Del Method Room Air 03/29/25 02:21 03/28/25 03/28/25 03/29/25 14:59 22:59 06:59 Intake Total 0 / 0 Balance 0 / 0 Weight last 48 hrs Weight 86.183 kg Physical Exam Narrative: General: No acute distress, AO x3 HEENT: PERRLA, pupils bilaterally equal and reactive, pallors not present Chest: Normal vesicular breath sounds, no added sounds, equal good air entry bilaterally CVS: S1-S2 regular, no murmurs, no tachycardia, no gallops, no rubs Abdomen: Soft, nontender, no organomegaly, bowel sounds present Neuro: No focal deficits, no facial deformity, AO x3, power 5/5 in all limbs Data 03/29/25 02:21 03/29/25 02:21 Other Labs: Radiology Impressions Chest X-Ray 03/29/25 02:22 IMPRESSION: 1. No acute cardiopulmonary process. 2. Incidental/nonacute findings are listed in the report. Laboratory Results WBC 5.92 10^3/uL (3.29-11.43) 03/29/25 02:21 RBC 5.53 10^6/uL (3.85-5.65) 03/29/25 02:21 Hgb 15.50 g/dL (11.27-16.99) 03/29/25 02:21 Hct 47.0 % (37-53) 03/29/25 02:21 MCV 85.0 fl (82-101) 03/29/25 02:21 MCH 28.0 pg (27-33) 03/29/25 02:21 MCHC 33.0 g/dL (30-55) 03/29/25 02:21 RDW 13.7 % (12.1-15.1) 03/29/25 02:21 Plt Count 203 10^3/cmm (157-399) 03/29/25 02:21 MPV 9.6 fL (7.4-10.4) 03/29/25 02:21 Neut % (Auto) 40.0 % 03/29/25 02:21 Lymph % (Auto) 43.6 % 03/29/25 02:21 [place]iscoe % (Auto) 13.5 % 03/29/25 02:21 Eos % (Auto) 1.9 % 03/29/25 02:21 Baso % (Auto) 0.7 % 03/29/25 02:21 Neut # (Auto) 2.37 10^3/uL (1.8-7.7) 03/29/25 02:21 Lymph # (Auto) 2.6 10^3/uL (0.8-4.8) 03/29/25 02:21 [place]iscoe # (Auto) 0.8 10^3/uL (0.2-0.9) 03/29/25 02:21 Eos # (Auto) 0.1 10^3/uL (0.0-0.8) 03/29/25 02:21 Baso # (Auto) 0.0 10^3/uL (0.0-0.1) 03/29/25 02:21 Nucleated RBC % (auto) 0 % 03/29/25 02:21 Nucleated RBCs # 0.0 /100WBC 03/29/25 02:21 Sodium 138 mmol/L (136-145) 03/29/25 02:21 Potassium 4.1 mmol/L (3.5-5.1) 03/29/25 02:21 Chloride 100 mmol/L (98-107) 03/29/25 02:21 Carbon Dioxide 27 mmol/L (22-29) 03/29/25 02:21 Anion Gap 15.1 (5-19) 03/29/25 02:21 BUN 17 mg/dL (8-23) 03/29/25 02:21 Creatinine 1.1 mg/dL (0.7-1.2) 03/29/25 02:21 GFR Calculation Not Reportable 03/29/25 02:21 Glucose 89 mg/dL (65-115) 03/29/25 02:21 Calculated Osmolality 287 mOsm/kg (285-295) 03/29/25 02:21 Calcium 9.4 mg/dL (8.5-10.5) 03/29/25 02:21 Total Bilirubin 0.5 mg/dL (0.15-1.2) 03/29/25 02:21 AST 14 U/L (0-40) 03/29/25 02:21 ALT 14 U/L (0-41) 03/29/25 02:21 Alkaline Phosphatase 74 U/L (40-130) 03/29/25 02:21 Troponin T Baseline 20 ng/L (0-15) H 03/29/25 02:21 Troponin T 120 Minute 18.88 ng/L (0-15) H 03/29/25 04:13 Delta Troponin T -1.12 ABS# (0-10) L 03/29/25 04:13 Total Protein 7.1 g/dL (6.6-8.7) 03/29/25 02:21 Albumin 4.1 g/dL (3.5-5.2) 03/29/25 02:21 Globulin 3.0 g/dL (1.3-4.6) 03/29/25 02:21 A&P Assessment and plan 1. Ventricular arrhythmia: 2. Uses LifeVest defibrillator: 3. Ischemic cardiomyopathy: 4. Pacemaker: Plan: 84-year-old male with a past medical history of ischemic cardiomyopathy, last known ejection fraction of 29% from December 2024 presenting to the emergency room after his LifeVest shocked him overnight. Per review of his rhythm strip from this event it appears shock was delivered after an episode of V. tach. The device is continued to alert him outside of the discharge events additionally. Device interrogation has been ordered and requested including the pacemaker. Cardiology service consulted. Continue home dose of metoprolol 25 mg for now. Holding home dose of Entresto given soft blood pressure at this time. He has received 20 mg of IV Lasix in the emergency room today. Currently clinically appearing to be euvolemic. Continue Eliquis and clopidogrel. Further orders to be dependent on device interrogation report. He has recently been referred as outpatient to [place] for LANDSCAPE ARCHITECT-D. PDMP PDMP Reviewed: Not Reviewed Attestations Medical Necessity Statement*: less than 2 midnight stay currently anticipated Coding Level of Care Code Acute Code for Chg Fwd Moderate MDM includes number and complexity of problems actively addressed during encounter, amount and/or complexity of data reviewed/ordered and described risk of complication, morbidity or mortality of management as documented Diagnoses Ventricular arrhythmia I49.9 Uses LifeVest defibrillator Z95.810 Ischemic cardiomyopathy I25.5 Pacemaker Z95.0
[2025-03-29] MEDS: FUROsemide 10 mg/mL SDV 2mL 20 MG IVP (05:03)
--- NOTE | 2025-03-29 06:11 | PC.NURSE ---
This nurse called [employer] number at and spoke with Miley about an alarm a patient received while in ER. This nurse gave the hospital address and our unit phone number, per Miley, a representive will come here to assess equipment.
[2025-03-29 07:28] LABS: Magnesium 2.1 mg/dL (1.7-2.3)
--- NOTE | 2025-03-29 08:22 | ECG_ITS ---
[facility] Date: 2025-03-29 Pat Name: Ashish Armijo Department: Room: ED Gender: Male Credentials Specialist: : 1940 Requested By: Juma Sandoval Order Number: [id number] Kimberly MD: Amilcar Ring M.D. Measurements Intervals [place] Rate: 65 P: 104 VT: 176 QRS: -86 QRSD: 247 T: 83 QT: 503 QTc: 525 Interpretive Statements ELECTRONIC ATRIAL PACEMAKER ELECTRONIC VENTRICULAR PACEMAKER Compared to ECG 03/29/2025 04:33:12 No significant changes Electronically Signed On 03-30-2025 08:46:41 CDT by Amilcar Ring M.D. [id number]
[2025-03-29 09:24] LABS: Troponin 5 6HR 18.30 ng/L (0-15)
[2025-03-29 09:26] LABS: Troponin 5 6HR Delta -1.70 ng/L (0-12)
--- NOTE | 2025-03-29 09:39 | PC.NURSE ---
this RN contacted Dr. Stafford about patients medications that were scheduled for 0900. 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
[2025-03-29 10:08] LABS: Estmated Average Glucose 128; Hemoglobin A1C 6.1 % (4.0-6.0)
[2025-03-29 10:17] LABS: Thyroid Stimulating Hormone 4.10 uIU/mL (0.27-4.20)
--- NOTE | 2025-03-29 11:59 | P.DS_ITS ---
Discharge Providers Date of Admission: 03/29/25 02:58 Date of Discharge: March 29, 2025 Attending Provider at Admission: Carly Batista MD Attending Provider at Discharge: Donnell Seo MD Consults: Cardiology: Dr. Ring Primary Care Provider: Angelika Johnson Diagnoses at Discharge Discharge Diagnosis 1. Ventricular arrhythmia: 2. Uses LifeVest defibrillator: 3. Ischemic cardiomyopathy: 4. Pacemaker: Reason for Visit Reason for Visit: shocked by life vest Brief History: As per HPI: Ashish Armijo is a 84 year old male with a past medical history of coronary artery disease, dyslipidemia, cardiomyopathy, history of A-fib/a flutter, history of PPM. Patient has been on a LifeVest for the past 2 months without any events. Last evening patient's LifeVest started to alert. Patient states that he had in all 3 episodes last evening with the LifeVest alerted him. 1 of these episodes resulted in delivery of shock, 2 episodes were delayed . Patient denies any chest pain during these episodes however states that he starts to feel as if his head is heavy and some generalized weakness at this time. Assessment patient is currently in a paced rhythm with heart rate at 60 bpm. Vital signs are stable with a blood pressure of 113/79 mmHg. Pacemaker interrogation report has been requested. Hospital Course Hospital Course Patient was roomed to the hospital for evaluation and management. He did not have any further episodes of arrhythmia during hospitalization. Cardiology was consulted. There was a concern that LifeVest was reading spikes from pacemaker hence heart rate was being read twice because of which he was getting alerts from the LifeVest. LifeVest settings were changed by the [employer] sales representative. Patient was cleared for discharge from cardiology standpoint. He is to follow-up with cardiology office in 2 weeks. With duration of LifeVest has been increased by 1 month. He is to be discharged if he remains hemodynamically stable after LifeVest settings have been changed. Physical Exam Narrative: General: No acute distress, AO x3 HEENT: PERRLA, pupils bilaterally equal and reactive, pallors not present Chest: Normal vesicular breath sounds, no added sounds, equal good air entry bilaterally CVS: S1-S2 regular, no murmurs, no tachycardia, no gallops, no rubs Abdomen: Soft, nontender, no organomegaly, bowel sounds present Neuro: No focal deficits, no facial deformity, AO x3, power 5/5 in all limbs Discharge Data Studies Completed and Pending Completed Studies During Hospitalization Category Date Time Status XR chest 1V portable [id number] Stat Exams 03/29/25 02:22 Completed Pending at discharge Category Date Time Status Complete Blood Count w/Auto AM LABS Lab 03/30/25 04:00 Ordered Comprehensive Metabolic Panel AM LABS Lab 03/30/25 04:00 Ordered Folate Level AM LABS Lab 03/30/25 04:00 Ordered MAG [Magnesium] AM LABS Lab 03/30/25 04:00 Ordered MAG [Magnesium] AM LABS Lab 03/31/25 04:00 Ordered MAG [Magnesium] AM LABS Lab 04/01/25 04:00 Ordered Radiology Impressions Chest X-Ray 03/29/25 02:22 IMPRESSION: 1. No acute cardiopulmonary process. 2. Incidental/nonacute findings are listed in the report. Laboratory Results WBC 5.92 10^3/uL (3.29-11.43) 03/29/25 02:21 RBC 5.53 10^6/uL (3.85-5.65) 03/29/25 02:21 Hgb 15.50 g/dL (11.27-16.99) 03/29/25 02:21 Hct 47.0 % (37-53) 03/29/25 02:21 MCV 85.0 fl (82-101) 03/29/25 02:21 MCH 28.0 pg (27-33) 03/29/25 02:21 MCHC 33.0 g/dL (30-55) 03/29/25 02:21 RDW 13.7 % (12.1-15.1) 03/29/25 02:21 Plt Count 203 10^3/cmm (157-399) 03/29/25 02:21 MPV 9.6 fL (7.4-10.4) 03/29/25 02:21 Neut % (Auto) 40.0 % 03/29/25 02:21 Lymph % (Auto) 43.6 % 03/29/25 02:21 Brooks % (Auto) 13.5 % 03/29/25 02:21 Eos % (Auto) 1.9 % 03/29/25 02:21 Baso % (Auto) 0.7 % 03/29/25 02:21 Neut # (Auto) 2.37 10^3/uL (1.8-7.7) 03/29/25 02:21 Lymph # (Auto) 2.6 10^3/uL (0.8-4.8) 03/29/25 02:21 Brooks # (Auto) 0.8 10^3/uL (0.2-0.9) 03/29/25 02:21 Eos # (Auto) 0.1 10^3/uL (0.0-0.8) 03/29/25 02:21 Baso # (Auto) 0.0 10^3/uL (0.0-0.1) 03/29/25 02:21 Nucleated RBC % (auto) 0 % 03/29/25 02:21 Nucleated RBCs # 0.0 /100WBC 03/29/25 02:21 Sodium 138 mmol/L (136-145) 03/29/25 02:21 Potassium 4.1 mmol/L (3.5-5.1) 03/29/25 02:21 Chloride 100 mmol/L (98-107) 03/29/25 02:21 Carbon Dioxide 27 mmol/L (22-29) 03/29/25 02:21 Anion Gap 15.1 (5-19) 03/29/25 02:21 BUN 17 mg/dL (8-23) 03/29/25 02:21 Creatinine 1.1 mg/dL (0.7-1.2) 03/29/25 02:21 GFR Calculation Not Reportable 03/29/25 02:21 Glucose 89 mg/dL (65-115) 03/29/25 02:21 Estimat Average Glucose 128 03/29/25 02:21 Hemoglobin A1c 6.1 % (4.0-6.0) H 03/29/25 02:21 Calculated Osmolality 287 mOsm/kg (285-295) 03/29/25 02:21 Calcium 9.4 mg/dL (8.5-10.5) 03/29/25 02:21 Magnesium 2.1 mg/dL (1.7-2.3) 03/29/25 04:13 Total Bilirubin 0.5 mg/dL (0.15-1.2) 03/29/25 02:21 AST 14 U/L (0-40) 03/29/25 02:21 ALT 14 U/L (0-41) 03/29/25 02:21 Alkaline Phosphatase 74 U/L (40-130) 03/29/25 02:21 Troponin T Baseline 20 ng/L (0-15) H 03/29/25 02:21 Troponin T 120 Minute 18.88 ng/L (0-15) H 03/29/25 04:13 Delta Troponin T -1.12 ABS# (0-10) L 03/29/25 04:13 Troponin T Hi Sens 6Hr 18.30 ng/L (0-15) H 03/29/25 08:59 Troponin T Hi Sens 6Hr Delta -1.70 ng/L (0-12) L 03/29/25 08:59 Total Protein 7.1 g/dL (6.6-8.7) 03/29/25 02:21 Albumin 4.1 g/dL (3.5-5.2) 03/29/25 02:21 Globulin 3.0 g/dL (1.3-4.6) 03/29/25 02:21 TSH 4.10 uIU/mL (0.27-4.20) 03/29/25 02:21 Vitals Last Vital Signs Pulse 65 03/29/25 07:00 Resp 17 03/29/25 07:00 BP 107/66 03/29/25 07:00 Pulse Ox 96 03/29/25 07:00 O2 Del Method Room Air 03/29/25 02:21 Discharge Plan Discharge Patient Disposition: Home Condition: Stable Prescriptions: Continued pantoprazole 40 mg tablet,delayed release (DR/EC) 40 mg PO DAILY saw palmetto 450 mg capsule 450 mg PO DAILY cyanocobalamin (vitamin B-12) 5,000 mcg capsule 5,000 mcg PO DAILY Eliquis 5 mg tablet 5 mg PO BID Qty: 180 3RF acitretin 10 mg capsule 10 mg PO DAILY nitroglycerin [Nitrostat] 0.4 mg tablet, sublingual 0.4 mg SUBLINGUAL Q5M PRN (Reason: chest pain) Qty: 25 6RF clopidogrel 75 mg tablet 75 mg PO DAILY Qty: 90 3RF furosemide 20 mg tablet 20 mg PO DAILY Qty: 90 3RF spironolactone 25 mg tablet 12.5 mg PO DAILY Qty: 90 3RF metoprolol tartrate 25 mg tablet See Rx Instructions .ROUTE .COMPLEX Qty: 180 3RF Dose Instruction: TAKE 1 TABLET BY MOUTH TWICE DAILY Rx Instructions: TAKE 1 TABLET BY MOUTH TWICE DAILY Entresto 24-26 mg tablet See Rx Instructions .ROUTE .COMPLEX Qty: 60 1RF Dose Instruction: TAKE 1 TABLET BY MOUTH TWICE DAILY Rx Instructions: TAKE 2 TABLET BY MOUTH in the am and 1 tablet in the pm for 2 weeks then 2 tabs bid montelukast 10 mg tablet 10 mg PO BEDTIME mupirocin 2 % ointment 1 applic TOPICAL DAILY fluticasone propionate 50 mcg/actuation spray,suspension 1 spray INTRANASAL BID PRN (Reason: ALLERGIES) [id number] C-Mn [Glucosamine 1500 Complex] 500-400 mg Capsule 1 cap PO DAILY Rx Instructions: (1500MG) rosuvastatin 40 mg tablet 40 mg PO DAILY Referrals: Angelika Johnson PA [Primary Care Provider, [facility]] - 4-7 days Dianne Tapia NP [Nurse Practitioner, Cardiology] - 2 weeks Discharge Diet: Cardiac Discharge Activity: Resume usual activity and Increase activity as tolerated Patient Instructions: Opioid Safety, Patient Portal & [facility]os Instructions Discharge Attestations Time Spent in Discharge Care*: greater than 30 min Quality Metrics Clinical Quality Measures [ No reported AMI, CVA or VTE this stay] Coding Level of Care Code Acute Code for Chg Fwd Diagnoses Ventricular arrhythmia I49.9 Uses LifeVest defibrillator Z95.810 Ischemic cardiomyopathy I25.5 Pacemaker Z95.0
--- NOTE | 2025-03-29 12:30 | P.CONIM_ITS ---
<Statement entered by Amilcar Ring M.D - 03/30/25 12:33> Patient was evaluated and cared for in conjunction with an advanced practice practitioner.? I personally examined the patient and reviewed the chart and all pertinent data including imaging, telemetry, and laboratory results.? I discussed the patient in detail with the advanced practice practitioner.? Please see? their note for complete consult note, testing results and agreed upon plan of care for the patient. GENERAL: Patient is alert, awake and oriented x3. HEART: Regular S1 and S2 LUNGS: Clear to auscultate bilaterally. CENTRAL NERVOUS SYSTEM: Grossly nonfocal. EXTREMITIES: Lower extremities without edema bilaterally. Inappropriate shock from lifevest. We will adjust settings and increase rate threshold for shock to 180bpm. Outpatient cardiology follow up. Providers/Reason For Consult 2 Consulting Physician/Specialty*: Dr Ring, cardiology Reason for Consult*: LifeVest shock Requesting Physician: Donnell Seo MD Attending Physician: Donnell Seo MD Primary Care Provider: Angelika Johnson History of Present Illness History of Present Illness Ashish Armijo is a 84 year old male with past medical history of CAD (status post CABG x 1 LOPEZ to LAD in 2023), hypertension, hyperlipidemia, Medtronic pacemaker, chronic systolic CHF. He presented to the emergency room today reporting a LifeVest had shocked him during sleep. He had the blue gel on the vest and his chest. He did not have any chest pain, worsening shortness of breath, rapid heart rate prior to LifeVest discharge. Laboratory evaluation unremarkable, troponin series: 20-> 18-> 18. Review of Systems 2 Const: Denies: fever(s), chills, change in weight, fatigue or diaphoresis Eyes: Denies: change in vision ENMT: Denies: epistaxis Card: Denies: chest pain, palpitations, irregular heart rhythm, edema, syncope, pre-syncope, dyspnea on exertion, orthopnea or leg pain with exertion Resp: Denies: dyspnea, productive cough or wheezing GI: Denies: nausea, vomiting, hematemesis, hematochezia or melena : Denies: hematuria Musc: Denies: extremity swelling Cheo/Lymph: Denies: easy bruising or easy bleeding Medications/Allergies Home Medications ?Medication ?Instructions ?Recorded ?Confirmed ?Last Taken ?Type pantoprazole 40 mg tablet,delayed 40 mg PO DAILY 10/0103/29/25 03/28/25 History release cyanocobalamin (vitamin B-12) 5,000 mcg PO DAILY 07/1303/29/25 03/28/25 History 5,000 mcg capsule saw palmetto 450 mg capsule 450 mg PO DAILY 07/13/22 0 03/29/25 03/28/25 History fluticasone propionate 50 1 spray intranasal BID PRN 0 11/12/23 03/29/25 Unknown History mcg/actuation nasal ALLERGIES spray,suspension [id number]-tbgnoekkz-[id number] C-Mn 500 1 cap PO DAILY 05/2903/29/25 03/28/25 History mg-400 mg capsule rosuvastatin 40 mg tablet 40 mg PO DAILY 11/12/2303/0603/28/25 History furosemide 20 mg tablet 20 mg PO DAILY #90 tabs 02/0303/29/25 03/28/25 Rx clopidogrel 75 mg tablet 75 mg PO DAILY #90 tabs 05/0603/29/25 03/28/25 Rx apixaban 5 mg tablet (Eliquis) 5 mg PO BID #180 tabs 0 12/26/24 03/29/25 03/28/25 Rx acitretin 10 mg capsule 10 mg PO DAILY 01/11/25 07/01/2703/28/25 History nitroglycerin 0.4 mg sublingual 0.4 mg sublingual Q5M PRN chest 01/11/25 03/29/25 Unknown Rx tablet (Nitrostat) pain #25 tabs spironolactone 25 mg tablet 12.5 mg (1/2 x 25 mg) PO D AILY #90 02/22/25 03/29/25 03/28/25 Rx tabs metoprolol tartrate 25 mg tablet See Rx Instructions . Route 02/27/25 03/29/25 03/28/25 Rx .COMPLEX #180 tabs sacubitril 24 mg-valsartan 26 mg See Rx Instructions . Route 03/04/25 03/29/25 03/28/25 Rx tablet (Entresto) .COMPLEX #60 tabs montelukast 10 mg tablet 10 mg PO BEDTIME 03/29/2503/28/25 History mupirocin 2 % topical ointment 1 applic topical DAILY 03/29/25 03/29/25 Unknown History Allergies Allergy/AdvReac Type Severity Reaction Status Date / Time Penicillins Allergy Unknown Unknown Verified 03/25/25 15:13 Current Medications Generic Name Dose Route Start Last Admin Trade Name Ann PRN Reason Stop Dose Admin Apixaban 5 mg 03/29/25 09:00 03/29/25 10:01 Apixaban 5 Mg Tablet PO Not Given BID CAROL Clopidogrel Bisulfate 75 mg 03/29/25 09:00 03/29/25 10:01 Clopidogrel 75 Mg Tablet PO 75 mg DAILY CAROL Administration Furosemide 20 mg 03/29/25 05:00 03/29/25 05:03 Furosemide 10 Mg/Ml Sdv 2ml IVP 20 mg ONCE CAROL Administration Metoprolol Tartrate 25 mg 03/29/25 09:00 03/29/25 10:01 Metoprolol Tartrate 25 Mg Tablet PO 25 mg BID CAROL Administration PFSH Acute 2 PFSH: Medical History Chest pain Atherosclerotic heart disease [place] coronary artery w/angina pectoris Pacemaker Medtronic dual chamber 04/15/23 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 Tobacco abuse, in remission ASHD (arteriosclerotic heart disease) Myocardial infarction Dyslipidemia HTN (hypertension) COPD (chronic obstructive pulmonary disease) Surgical History S/P angioplasty with stent Family History Father , AGE 90 CAD (coronary artery disease) Cancer COLON Mother Stroke Social History Smoking and tobacco/nicotine status: former use of tobacco/nicotine Quit status (tobacco/nicotine): has quit using Alcohol intake: former Substance/Drug Use: never Household members: spouse Marital status: service: Yes Current occupational status: retired Current gender identity: Male Betsey/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: Quaker Vitals/I&O/Wt Last Vital Signs Pulse 60 03/29/25 15:36 Resp 20 H 03/29/25 15:36 BP 113/71 03/29/25 15:36 Pulse Ox 96 03/29/25 15:36 O2 Del Method Room Air 03/29/25 02:21 03/29/25 03/29/25 03/29/25 06:59 14:59 22:59 Intake Total 0 / 0 Output Total 800 / 800 Balance 0 / -800 -800 / -800 Weight last 48 hrs Weight 190 lb Physical Exam 2 Const: COMMON NORMALS: no acute distress and patient oriented x3 GENERAL APPEARANCE: cooperative and comfortable ORIENTATION/CONSCIOUSNESS: Yes awake, Yes oriented to person, Yes oriented to place and Yes oriented to time Chest: COMMONS NORMALS: normal inspection of the chest and normal palpation of entire chest wall CHEST: Yes Symmetrical chest wall rise Resp: COMMON NORMALS: normal respiratory effort, No retractions, No use of accessory muscles and clear to auscultation bilaterally EFFORT & INSPECTION: Yes symmetric chest movement AUSCULTATION: clear to auscultation bilaterally Cardio: COMMON NORMALS: regular rate, regular rhythm (ventricular pacing), S1 normal heart sound present, S2 normal heart sound present, No gallops present (Cardio), No clicks present (Cardio), No murmurs present (Cardio) and No rub (Cardio) RATE: regular rate RHYTHM: regular rhythm (ventricular pacing) HEART SOUNDS: S1 normal heart sound present and S2 normal heart sound present PERIPHERAL PULSES: radial pulses present Extremity: COMMON NORMALS: no pedal edema Neuro: COMMON NORMALS: patient oriented x3 and moves all extremities S ENSORIUM/ORIENTATION: Yes oriented to person, Yes oriented to place and Yes oriented to time Data 03/29/25 02:21 03/29/25 02:21 A&P Assessment and plan 1. Uses LifeVest defibrillator: 2. Ischemic cardiomyopathy: 3. Presence of permanent cardiac pacemaker: 4. HTN (hypertension): Plan: Discussed with the [facility] LifeVest vaccine customer representative, and reviewed the data from the LifeVest at the time of the shock. It is an inappropriate shock, felt to be related to misinterpretation of the pacemaker spikes by the LifeVest. A new set of equipment has been issued to the patient, will increase the VT threshold to 180 bpm so as to prevent future inappropriate shocks. He just increased his dose of Entresto on Tuesday, limited echo obtained yesterday revealed LVEF 30 to 35%, improved from 29% in December. Will have him follow-up in the cardiology clinic in 2 weeks, to assess for up titration of Entresto. He can discharge home today. PDMP PDMP Reviewed: Not Reviewed Coding Level of Care Code Acute Code for Chg Fwd Diagnoses Uses LifeVest defibrillator Z95.810 Ischemic cardiomyopathy I25.5 Presence of permanent cardiac pacemaker Z95.0 HTN (hypertension) I10
== END 2025-03-29 16:00 | disposition home or self-care (01) ==
LOC: ER 03:03 → ER IP 03:21 → ICU 10:55
PROVIDERS: Admitting Provider Student in an Organized Health Care Education/Training Program; Emergency Provider Family Medicine; PCP Physician Assistant; Visit Provider Student in an Organized Health Care Education/Training Program
DX: I49.9 Cardiac arrhythmia, unspecified (principal); Z95.810 Presence of automatic (implantable) cardiac defibrillator; I25.5 Ischemic cardiomyopathy; Z79.01 Long term (current) use of anticoagulants; K21.9 Gastro-esophageal reflux disease without esophagitis; E78.5 Hyperlipidemia, unspecified; Z95.1 Presence of aortocoronary bypass graft; I25.119 Atherosclerotic heart disease of native coronary artery with unspecified angina pectoris; I25.2 Old myocardial infarction; J44.9 Chronic obstructive pulmonary disease, unspecified; Z95.5 Presence of coronary angioplasty implant and graft; Z87.891 Personal history of nicotine dependence; I10 Essential (primary) hypertension; I50.22 Chronic systolic (congestive) heart failure
CPT/HCPCS: 36415; 71045; 80053; 83036; 83735; 84443; 84484; 85025; 93005; 96374; 99285; G0378; J1938; J9999

== ENCOUNTER → 2025-04-18 14:40 | Outpatient (BNVA) | payer OTHER, SELFPAY | PROVIDERS: PCP Physician Assistant; Visit Provider Nurse Practitioner Family | DX: I11.0 Hypertensive heart disease with heart failure (principal); I50.20 Unspecified systolic (congestive) heart failure; I25.110 Atherosclerotic heart disease of native coronary artery with unstable angina pectoris; I48.91 Unspecified atrial fibrillation; Z79.01 Long term (current) use of anticoagulants; I25.5 Ischemic cardiomyopathy; E78.5 Hyperlipidemia, unspecified; J44.9 Chronic obstructive pulmonary disease, unspecified; Z95.0 Presence of cardiac pacemaker; Z95.5 Presence of coronary angioplasty implant and graft; Z87.891 Personal history of nicotine dependence; I25.2 Old myocardial infarction; I10 Essential (primary) hypertension | CPT/HCPCS: 36415; 80048; 85025; 99214 ==